=== PATIENT | male | born 1945 | race Caucasian/White ===

== ENCOUNTER 2019-10-29 14:53 | Observation (INO) ==
--- NOTE | 2019-10-29 15:46 | Emergency Department Note ---
Impression & Plan Amaurosis fugax of left eye ED Provider Note Provider: Niranjan White MD DATE OF SERVICE: 10/29/2019 CHIEF COMPLAINT: Vision loss HISTORY OF PRESENT ILLNESS: Patient is a 74-year-old gentleman with a past medical history of hyperlipidemia, GERD, hypertension presenting today stating that he has had 2 episodes of transient left eye vision loss. States first episode was approximately 10 days ago he was at home and started experiencing flashing his left eye and then total vision loss with a black sensation with a few flashes over several minutes. This then resolved. Talked to his doctor who in the outpatient setting has completed an MRI of the brain with report of some microvascular chronic changes but no other acute intracranial pathology. Had basic blood work showing some hyperlipidemia. Reportedly had a carotid ultrasound result of which is pending at this time. He denies other associated headache, palpitations, chest pain, difficulty breathing, fever, trauma, or other speech issues or numbness or weakness. Had a separate episode today and is been fine in the intervening time until just before 2 PM he had a 20-minute similar episode today where he had some flashing in his left eye and then total blackness that then resolved over about 20 minutes. States no pain no jaw pain. States his left eyelid maybe was a little bit droopy he felt on the way over or felt heavy but is now normalized. Patient states he takes a baby aspirin every day. 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 REVIEW OF SYSTEMS: A total of 10 review of systems was obtained and negative except as stated above in the HPI. PAST MEDICAL HISTORY: As noted above MEDICATIONS: Reviewed the nursing notes and agree, significant for lisinopril, aspirin, carvedilol SOCIAL HISTORY: Denies tobacco or alcohol usage. PHYSICAL EXAM: GENERAL: alert and oriented in no acute distress on stretcher Head: normocephalic and atraumatic EYES: No injection, discharge or icterus. PERRL, EOMI. 20/40 b/l corrected vision. Puff tonometry R avg 13, L avg 11 NECK: Trachea midline. Supple. ENT: Mucous membranes pink and moist. LUNGS: Airway patent. No retractions. Breath sounds clear HEART: Regular rate and rhythm. No chest wall tenderness ABDOMEN: Soft and non-tender, without guarding or rebound. SKIN: Acyanotic, warm, dry, without rashes EXTREMITIES: Without swelling, tenderness or deformity NEUROLOGICAL: No focal deficits. No aphasia. No facial droop or slurred speech. No facial paresthesias or forehead paralysis. No tenderness of the jawline. Normal strength and tone in the extremities. Sensation to gross touch normal. Ambulatory. EK bpm, normal sinus rhythm. No acute ST segment elevation or depression. Normal axis and normal QTC. No PVCs. Patient's hypertension was referred to his hospitalist HOSPITAL COURSE: 1505 Patient was first seen and H&P performed. [address] bright note from ophthalmology. Recommends TIA evaluation. 173 Patient reassessed and updated. Patient was resting comfortable without any recurrence. Discussed findings and [facility] recommendations[facility] with [facility]. Patient's laboratory studies and imaging reviewed. Differential includes Conjunctivitis, trauma, corneal abrasion, hyphema, glaucoma, iritis, corneal ulcer, dendrite, CRAO, CRVO, vitreous detachment, retinal detachment, CVA as well as other pathologies. IMPRESSION/MEDICAL DECISION MAKING: Patient presents with transient left eye visual loss with a second event today. Denies other associated events the other extremities. Seems atypical for stroke. Given the resolution of his symptoms doubt central retinal artery occlusion. Puff to monitor he was completed with a averaged pressure of 13 in the right eye and 11 in the left eye. 20/40 bilateral corrected eye vision without noted deficits reported per the patient. Patient denies any jaw claudication symptoms. Reviewed the [facility] medical records and recent MRI. Is scheduled for an upcoming carotid duplex for evaluation of those arteries. Does not appear inflammatory markers were sent so a CBC, BMP, ESR, and CRP were ordered. Does not seem consistent with a Erickson's palsy. CT the head and CT angiogram of the head and neck was completed. Again low suspicion this is a stroke or CVA. The lack of pain and normal pressures leans against glaucoma. I doubt this is corneal pathology. No evidence of injection of the eye and I doubt anterior chamber issue. States he is upcoming appointment with optometry tomorrow. Basic labs without significant findings. ESR just above normal at 19 and CRP just above normal at 0.57. This is not impressive for GCA. CT the head and CT angiogram of the head and neck completed without evidence of acute intracranial bleed. No significant vascular abnormality has been noted. Patient again is back at baseline at this time. Discussed with ophthalmology via phone. Findings are concerning for amaurosis fugax of the left eye. Ophthalmology recommends TIA work-up. Patient's had extensive work-up at this time however is not had cardiac evaluation/echocardiogram. We will give the patient full dosing of aspirin at this time. Discussed with the patient. The [facility] hospitalist evaluate. DIAGNOSIS: Transient left eye vision loss - Amaurosis fugax DISPOSITION: Hospitalist to eval Patient was agreeable with this plan. Past Med/Surg History Social History Preferred Language: Wallisian Feels Safe at Home: Yes Allergies Allergies Allergy/AdvReac Type Severity Reaction Status Date / Time [id number] Allergy Unknown Unknown Uncoded 10/29/19 15:51 Home Meds Home Medications Medication Instructions Recorded Confirmed aspirin 81 mg PO DAILY 10/29/19 10/29/19 carvedilol 3.125 mg PO BID PRN 10/29/19 10/29/19 coenzyme Q10 [CoQ-10] 0 mg PO DAILY 10/29/19 10/29/19 escitalopram oxalate 5 mg PO DAILY 10/29/19 10/29/19 ginkgo biloba 0 mg PO BID 10/29/19 10/29/19 lisinopril 2.5 mg PO QAM 10/29/19 10/29/19 omega 3-xgd-ugk-fish oil [Fish Oil] 1 cap PO DAILY 10/29/19 10/29/19 rosuvastatin 5 mg PO DAILY 10/29/19 10/29/19 turmeric 400 mg PO DAILY 10/29/19 10/29/19 Results & Data (ED) Vital Signs Vital Signs - 24 hr 10/29/19 14:58 10/29/19 15:42 10/29/19 16:00 Temperature 36.8 C Temperature Source Oral Pulse Rate 75 62 61 Pulse Rate from SpO2 Sensor 62 61 Respiratory Rate 18 19 13 Respiratory Effort / Characteristics Non-Labored Respiratory Depth Normal Blood Pressure 149/55 H 117/71 112/70 Blood Pressure Mean 86 78 79 Pulse Oximetry 97 98 97 Oxygen Delivery Method Room Air Sepsis Recent Fever Within 48 Hours No Sepsis Action Taken by Nursing No Action Required 10/29/19 16:39 10/29/19 17:00 10/29/19 17:31 Temperature Temperature Source Pulse Rate 65 63 65 Pulse Rate from SpO2 Sensor 65 61 63 Respiratory Rate 18 17 29 H Respiratory Effort / Characteristics Respiratory Depth Blood Pressure 131/73 127/79 149/84 H Blood Pressure Mean 95 90 92 Pulse Oximetry 97 97 99 Oxygen Delivery Method Sepsis Recent Fever Within 48 Hours Sepsis Action Taken by Nursing Laboratory Data Result diagrams: 10/29/19 15:45 10/29/19 15:45 Lab Results 10/29/19 10/29/19 10/29/19 Range/Units 15:45 15:45 15:45 WBC 5.04 (4.8-10.8) K/uL RBC 3.82 L (4.7-6.1) M/uL Hgb 12.1 L (14.0-18.0) g/dL Hct 36.7 L (42-52) % MCV 96.1 (80-100) fL MCH 31.7 (25-34) pg MCHC 33.0 (32-36) g/dL RDW Std Deviation 45.8 (36.4-46.3) fL RDW Coeff of George 13.1 (11.5-14.5) % Plt Count 306 (130-400) K/uL MPV 9.2 (7.4-10.4) fL Immature Gran % (Auto) 0.2 % Neut % (Auto) 57.2 % Lymph % (Auto) 23.4 % Denali % (Auto) 11.1 % Eos % (Auto) 7.5 % Baso % (Auto) 0.6 % Immature Gran # (Auto) 0.01 (0.00-0.02) K/uL Neut # (Auto) 2.88 (1.4-6.5) K/uL Lymph # (Auto) 1.18 L (1.2-3.4) K/uL Denali # (Auto) 0.56 (0.11-0.59) K/uL Eos # (Auto) 0.38 (0-0.5) K/uL Baso # (Auto) 0.03 (0-0.2) K/uL ESR 19 H (0-14) mm/hr Sodium 140 (136-145) mmol/L Potassium 4.3 (3.5-5.1) mmol/L Chloride 110 H (98-107) mmol/L Carbon Dioxide 28 (21-32) mmol/L Anion Gap 2.0 L (3-11) BUN 18 (7-18) mg/dl Creatinine 0.95 (0.6-1.4) mg/dl Est Cr Clr Drug Dosing 66.3 ml/min Est GFR ( Amer) 91.7 Est GFR (Non-Af Amer) 79.1 BUN/Creatinine Ratio 18.9 (10-20) Glucose 100 H (70-99) mg/dl Calcium 8.8 (8.5-10.1) mg/dl C-Reactive Protein 0.57 H (0-0.29) mg/dl Administered Medications Ioversol (Optiray 320 125ml) 119 ml IV ONCE PRN PRN Reason: Interaction Checking Stop: 11/02/19 16:30 Last Admin: 10/29/19 16:31 Dose: 119 ml Documented by: [id number] Discontinued Medications Aspirin (Aspirin Chew) 243 mg PO NOW STA Stop: 10/29/19 17:33 Last Admin: 10/29/19 17:37 Dose: 243 mg Documented by: [id number] Discharge Plan Visit Data Chief Complaint: Visual Disturbance Stated Complaint: LOST SIGHT IN LT EYE ED Provider: Niranjan White Discharge Problem: Amaurosis fugax of left eye Patient Disposition: Being Evaluated by Hospitalist Condition: Good Forms Stand Alone Forms: My [facility] [place] [employer] Prescriptions Prescriptions: No Action aspirin 81 mg Tablet,Delayed Release (Dr/Ec) 81 mg PO DAILY RF: 0 carvedilol 3.125 mg tablet 3.125 mg PO BID PRN (Reason: Hypertension) RF: 0 lisinopril 2.5 mg tablet 2.5 mg PO QAM RF: 0 ginkgo biloba 500 mg Capsule 0 mg PO BID RF: 0 escitalopram oxalate 10 mg tablet 5 mg PO DAILY RF: 0 coenzyme Q10 [CoQ-10] 100 mg Capsule 0 mg PO DAILY RF: 0 rosuvastatin 5 mg tablet 5 mg PO DAILY RF: 0 omega 3-env-mjj-fish oil [Fish Oil] 1,000 mg (120 mg-180 mg) Capsule 1 cap PO DAILY RF: 0 turmeric 400 mg Capsule 400 mg PO DAILY RF: 0 Referrals Referrals: James Harrell DO [Primary Care Provider] -
[2019-10-29 15:54] LABS: Basophils # (auto) 0.03 K/uL (0-0.2); Basophils % (auto) 0.6 %; Eosinophils # (auto) 0.38 K/uL (0-0.5); Eosinophils % (auto) 7.5 %; Hematocrit (blood only) 36.7 % (42-52); Hemoglobin 12.1 g/dL (14.0-18.0); Immature Granulocytes # (auto) 0.01 K/uL (0.00-0.02); Immature Granulocytes % (auto) 0.2 %; Lymphocytes # (auto) 1.18 K/uL (1.2-3.4); Lymphocytes % (auto) 23.4 %; Mean Corpuscular Hemoglobin 31.7 pg (25-34); Mean Corpuscular Volume 96.1 fL (80-100); Mean Platelet Volume 9.2 fL (7.4-10.4); Monocytes # (auto) 0.56 K/uL (0.11-0.59); Monocytes % (auto) 11.1 %; Neutrophils # (auto) 2.88 K/uL (1.4-6.5); Neutrophils % (auto) 57.2 %; Platelet Count 306 K/uL (130-400); RDW Coefficient of Variation 13.1 % (11.5-14.5); RDW Standard Deviation 45.8 fL (36.4-46.3); Red Blood Count 3.82 M/uL (4.7-6.1); White Blood Count 5.04 K/uL (4.8-10.8)
[2019-10-29 16:10] LABS: BUN Creatinine Ratio 18.9 (10-20); C Reactive Protein 0.57 mg/dl (0-0.29); Calcium 8.8 mg/dl (8.5-10.1); Creatinine Clr Calc Pharmacy 66.3 ml/min; Est GFR (African American) 91.7; Est GFR (Non-African American) 79.1; Potassium 4.3 mmol/L (3.5-5.1)
[2019-10-29] MEDS ORDERED: OPTIRAY 320 125ml IV PRN (16:31)
--- NOTE | 2019-10-29 16:49 | CT Scan Report ---
CT angio head wo/w CT DOSE: CLINICAL HISTORY: Transient left eye visual loss TECHNIQUE: Unenhanced images were obtained. The brain. CT angiography was then performed a dynamic he lical fashion during intravenous administration of 119 cc of Optiray 320. MIP images were acquired. A dose lowering technique was utilized adhering to the principles of ALARA. COMPARISON STUDY: None. FINDINGS: Noncontrast images reveal no CT evidence of acute cortical infarction. There is no midline shift. The re is no evidence of acute hemorrhage. There is minimal ventricular prominence. No calvarial fracture s are visualized. There is no evidence of acute sinusitis. There are polypoid mucosal changes within the maxillary sinuses. CT angiographic images reveal no evidence of major intracranial branch occlusion. There are no lesion suspicious for aneurysm. There is no evidence of major intracranial stenosis. The dural venous sinus es appear patent. There are no pathologically enhancing lesions. IMPRESSION: 1. No acute intracranial findings 2. Unremarkable CT angiography of the brain. ACT 112: Negative or not required by law. Electronically signed by: Brock Foy M.D. 10/29/2019 4:48 PM
--- NOTE | 2019-10-29 16:51 | CT Scan Report ---
CT angio neck with con CLINICAL HISTORY: Transient left eye visual loss COMPARISON STUDY: No previous studies for comparison. TECHNIQUE: CT angiography was performed from the aortic arch to the skull base. MIP imaging was perfo rmed. The patient was scanned in a dynamic helical fashion during intravenous administration of 119 c c of Optiray 320. A dose lowering technique was utilized adhering to the principles of ALARA. CT DOSE: 1126.75 mGy.cm Technique: CT angiogram of the carotid and vertebral arteries was obtained using intravenous contrast and 3-D reconstruction. NASCET criteria was utilized. Findings: The right carotid revealed no evidence of aneurysm and no evidence of dissection. There is no evidenc e of hemodynamic significant stenosis. The left carotid revealed no evidence of hemodynamic significant stenosis. There is no evidence of an eurysm. There is no evidence of dissection. There is no evidence of hemodynamically significant vertebral stenosis. There is no evidence of verte bral dissection. IMPRESSION: No evidence of hemodynamically significant carotid or vertebral artery stenosis. No evidence of disse ction. ACT 112: Negative or not required by law. Electronically signed by: Brock Foy M.D. 10/29/2019 4:50 PM
[2019-10-29] MEDS ORDERED: ASPIRIN 81 MG CHEW PO STA (17:32)
--- NOTE | 2019-10-29 17:41 | Electrocardiogram Report ---
Test Reason : Blood Pressure : / mmHG Vent. Rate : 061 BPM Atrial Rate : 061 BPM P-R Int : 170 ms QRS Dur : 092 ms QT Int : 388 ms P-R-T Axes : 053 041 053 degrees QTc Int : 390 ms Normal sinus rhythm Nonspecific ST abnormality Abnormal ECG When compared with ECG of 13-OCT-2007 16:11, Premature ventricular complexes are no longer Present Confirmed by Brady Gomez ([id number]) on 10/29/2019 5:41:51 PM Referred By: REFERRED SELF Confirmed By:Brady Gomez
--- NOTE | 2019-10-29 18:16 | History & Physical Report ---
Date of Service October 29, 2019 Assessment & Plan (1) Transient monocular blindness: Differential includes but not limited to TIA, NAION, CRAO, complicated migraine. Workup so far includes a normal ESR. Without jaw claudication or headache, GCA less likely. Normal IOP making acute glaucoma less likely. No known vascular disease with a normal CTA head and neck making a macrovascular cause less likely. He does describe a sensation like a visual aura and denies loss of taste or smell associated with vision loss episodes. He does have a h/o "tension headaches" that have been ongoing for years, but no clear migraine history. He recently had a normal outpatient MRI brain. Will admit and monitor on telemetry overnight for occult arrhythmia, and obtain an echo and a neurology consultation. Cont atherosclerosis risk factor modification with home statin and ASA . Hold lisinopril to allow permissive hypertension. (2) HLD (hyperlipidemia): Crestor per home regimen. (3) Adjustment disorder with depressed mood: Lexapro per home regimen. (4) DVT prophylaxis: Lovenox Full Dispo-likely to home in am after workup completed. If no evidence of occult arrhythmia and normal echocardiogram, would discuss with Neurology and then consider close outpatient ophthalmology follow-up. Meryl Hodges DO [facility] Hospitalist Admission and Anticipated Discharge Date Anticipated date of discharge: 10/30/19 History of Present Illness Chief Complaint: transient monocular vision loss on the left Primary Care Provider: James Harrell DO 74-year-old man presents with 2 episodes of transient monocular vision loss in the left over the past 10 days. He reports approximately 10 days ago having transient vision loss which improved spontaneously. He was seen by his primary care provider who ordered an MRI of the brain which was normal. He then had a second episode today for approximately 20 minutes. He reports his vision gradually fades and there is a flashing light and dark's with preservation of color vision. He reports something of an oral but there is no sensation or pain associated with this. He denies any headache or jaw pain. ESR was 19 in the ER. Intraocular pressure was normal per ER physician. He has no known cardiac or vascular disease. 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 He denies any other strokelike symptoms including no loss of function of arms or legs, no loss of function of speech, normal swallowing ability, no facial droop or any other strokelike symptoms. He was recently placed on Crestor 5 mg. He takes fdfn-ejv-uaigesy supplements including coenzyme Q 10, ginkgo biloba, omega-3 fatty acids and tumor rec. He reports a distant history of an acute cardiomyopathy that was nonischemic, which resolved with medical therapy. He continues to be on the Coreg and lisinopril that he was put on in 2011 for this issue but is due to follow-up with his dielectric machine operator to discuss coming off these medications completely. He is already somewhat stopped his Coreg as he began feeling fatigue related to the medication. Allergies Allergy/AdvReac Type Severity Reaction Status Date / Time [id number] Allergy Unknown Unknown Uncoded 10/29/19 15:51 Home Medications Home Medications Medication Instructions Recorded Confirmed Type aspirin 81 mg PO DAILY 10/29/19 10/29/19 History carvedilol 3.125 mg PO BID 10/29/19 10/29/19 History coenzyme Q10 [CoQ-10] 0 mg PO DAILY 10/29/19 10/29/19 History escitalopram oxalate 5 mg PO DAILY 10/29/19 10/29/19 History ginkgo biloba 0 mg PO BID 10/29/19 10/29/19 History lisinopril 2.5 mg PO QAM 10/29/19 10/29/19 History omega 6-gsv-pqf-fish oil [Fish Oil] 1 cap PO DAILY 10/29/19 10/29/19 History rosuvastatin 5 mg PO DAILY 10/29/19 10/29/19 History turmeric 400 mg PO DAILY 10/29/19 10/29/19 History Past Med/Surg History Medical History Adjustment disorder with depressed mood HLD (hyperlipidemia) Nonischemic cardiomyopathy Schatzki's ring Surgical History Hx of tonsillectomy S/P appy Family History Father , age 78 Coronary heart disease Social History Preferred Language: Yakut marital status: Single current occupational status: employed 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 Feels Safe at Home: Yes Smoking Status: Former smoker Hx Alcohol Use: Yes Physical Activity Frequency: 5-6 Times per Week Review of Systems Review of Systems: All systems reviewed & are unremarkable except as noted in HPI & below Physical Exam Physical Exam: CONSTITUTIONAL: WNWD, vitals as above, generally well-appearing EYES: PERRL, normal conjunctivae, no scleral icterus, no fundoscopic abnormality ENT: external ear and nose normal, oropharynx clear, no TM abnormality, no maxillary or ethmoid sinus tenderness NECK: trachea midline, no lymphadenopathy RESPIRATORY: clear to auscultation bilaterally, no crackles, rales or wheezes, normal respiratory effort CARDIOVASCULAR: regular rate and rhythm, S1 and 2 heard without murmurs, gallops or rubs, no JVD, no peripheral edema GASTROINTESTINAL: soft, nontender, nondistended MUSCULOSKELETAL: strength 5/5 throughout, head is normocephalic and atraumatic, neck supple, normal palpation of chest wall without tenderness SKIN: warm and dry NEUROLOGIC: patellar DTRs 2+ bilat. No facial palsy, no dysarthria. CN 2-12 grossly intact, no sensory deficit, normal cognition, normal speech, no tremor PSYCHIATRIC: alert cooperative and oriented to person, place and time. Results & Data Results & Data ([facility]) Vital Signs (Past 12 Hours) Vital Signs Temp Pulse Resp BP Pulse Ox 10/29/19 17:31 65 29 H 149/84 H 99 10/29/19 17:00 63 17 127/79 97 10/29/19 16:39 65 18 131/73 97 10/29/19 16:00 61 13 112/70 97 10/29/19 15:42 62 19 117/71 98 10/29/19 14:58 36.8 C 75 18 149/55 H 97 Laboratory Results Short CBC 10/29/19 Range/Units 15:45 WBC 5.04 (4.8-10.8) K/uL Hgb 12.1 L (14.0-18.0) g/dL Hct 36.7 L (42-52) % Plt Count 306 (130-400) K/uL BMP 10/29/19 15:45 Sodium 140 Potassium 4.3 Chloride 110 H Carbon Dioxide 28 BUN 18 Creatinine 0.95 Glucose 100 H Calcium 8.[address] angio neck with con Findings: The right carotid revealed no evidence of aneurysm and no evidence of dissection. There is no evidence of hemodynamic significant stenosis. The left carotid revealed no evidence of hemodynamic significant stenosis. There is no evidence of aneurysm. There is no evidence of dissection. There is no evidence of hemodynamically significant vertebral stenosis. There is no evidence of vertebral dissection. IMPRESSION: No evidence of hemodynamically significant carotid or vertebral artery stenosis. No evidence of dissection. CT angio head wo/w FINDINGS: Noncontrast images reveal no CT evidence of acute cortical infarction. There is no midline shift. There is no evidence of acute hemorrhage. There is minimal ventricular prominence. No calvarial fractures are visualized. There is no evide nce of acute sinusitis. There are polypoid mucosal changes within the maxillary sinuses. CT angiographic images reveal no evidence of major intracranial branch occlusion. There are no lesion suspicious for aneurysm. There is no evidence of major intracranial stenosis. The dural venous sinuses appear patent. There are no pathologically enhancing lesions. IMPRESSION: 1. No acute intracranial findings 2. Unremarkable CT angiography of the brain. Medications Administered ASA 2423mg PO x 1 in ER. ECG Rhythm: normal sinus Code Status & VTE Plan Code Status Full -discussed with patient on admission who is in agreement with this VTE Prophylaxis Plan VTE Prophylaxis will be ordered: Yes
[2019-10-29] MEDS ORDERED: ACETAMINOPHEN 325 MG TAB PO PRN (20:01)
[2019-10-29] MEDS ORDERED: PHARMACIST DISCHARGE MED REC CONSULT PRN (20:01)
[2019-10-29] MEDS ORDERED: SODIUM CHLORIDE 0.9% 1000ML 1,000 ML IV SCH (23:00)
[2019-10-30 06:31] LABS: Basophils # (auto) 0.04 K/uL (0-0.2); Basophils % (auto) 0.7 %; Eosinophils # (auto) 0.44 K/uL (0-0.5); Eosinophils % (auto) 7.2 %; Hematocrit (blood only) 37.5 % (42-52); Hemoglobin 12.3 g/dL (14.0-18.0); Immature Granulocytes # (auto) 0.01 K/uL (0.00-0.02); Immature Granulocytes % (auto) 0.2 %; Lymphocytes # (auto) 1.49 K/uL (1.2-3.4); Lymphocytes % (auto) 24.5 %; Mean Corpuscular Hemoglobin 31.5 pg (25-34); Mean Corpuscular Hgb Conc 32.8 g/dL (32-36); Mean Corpuscular Volume 95.9 fL (80-100); Monocytes # (auto) 0.78 K/uL (0.11-0.59); Monocytes % (auto) 12.8 %; Neutrophils # (auto) 3.33 K/uL (1.4-6.5); Neutrophils % (auto) 54.6 %; Platelet Count 303 K/uL (130-400); RDW Coefficient of Variation 13.1 % (11.5-14.5); RDW Standard Deviation 45.7 fL (36.4-46.3); Red Blood Count 3.91 M/uL (4.7-6.1); White Blood Count 6.09 K/uL (4.8-10.8)
[2019-10-30 06:48] LABS: BUN Creatinine Ratio 19.3 (10-20); Calcium 8.8 mg/dl (8.5-10.1); Creatinine Clr Calc Pharmacy 67.6 ml/min; Est GFR (African American) 96.6; Est GFR (Non-African American) 83.3; Potassium 4.2 mmol/L (3.5-5.1)
[2019-10-30 07:04] LABS: Estimated Average Glucose 117 mg/dl; Hemoglobin A1C 5.7 % (4.5-5.6)
[2019-10-30] MEDS ORDERED: ESCITALOPRAM OXALATE 10 MG TAB PO SCH (09:00)
[2019-10-30] MEDS ORDERED: ASPIRIN 81 MG ECTAB PO SCH (09:00)
[2019-10-30] MEDS ORDERED: ENOXAPARIN INJ 40 MG/0.4 ML SYR SQ SCH (09:00)
[2019-10-30] MEDS ORDERED: ROSUVASTATIN CALCIUM 5 MG TAB PO SCH (09:00)
--- NOTE | 2019-10-30 12:40 | Neurology Consultation ---
Date of Consultation October 30, 2019 Assessment & Plan (1) Amaurosis fugax of left eye: A pleasant 74 year old male with chronic daily headaches which sound most consistent with chronic TTH and 2 episodes of intermittent, brief left eye visual loss. Differential diagnosis certainly includes amaurosis fugax Vs ocular migraine or other intrinsic eye abnormality. CTA neck showed no high grade stenosis. MRI brain as outpatient was negative for acute stroke. On examine VF full to confrontation and EOMI. Pupils symmetric and reactive. Recommend he take ASA daily. Recommend ophthalmology consult as outpatient. Discussed headache prophylactic medication option. Patient declined at this time. If episodes continue I ask patient to contact and provided him with by contact information. Patient agreed to plan of care. (2) TTH (tension-type headache): History of Present Illness Reason for Consultation: Transient monocular visual loss Attending Physician: Jaja Ang MD History of Present Illness A 74 year old male on ASA and high intensity statin admitted for transient monocular visual loss. Noted to have 2 episodes of transient monocular vision loss in the left eye over the past 10 days. He reports approximately 10 days ago having transient vision loss which improved spontaneously. He was seen by his primary care provider who ordered an MRI of the brain which was normal. He then had a second episode which lasted approximately 20 minutes. He reports his vision gradually fades and there is a flashing light and dark's with preservation of color vision. He reports something of an oral but there is no sensation or pain associated with this. He denies any headache or jaw pain. ESR was 19 in the ER. Intraocular pressure was normal per ER physician. He denies history of similar symptoms. Reports history of TTH. Denies migraines with N/V or photosensitivity. Has daily headaches which he describes as tension and relieved with massage. Headache may only last 5 min. He was taking ASA intermittently at home. Allergies Allergy/AdvReac Type Severity Reaction Status Date / Time [id number] Allergy Unknown Unknown Uncoded 10/29/19 15:51 Home Medications Home Medications Medication Instructions Recorded Confirmed Type aspirin 81 mg PO DAILY 10/29/19 10/29/19 History carvedilol 3.125 mg PO BID 10/29/19 10/29/19 History coenzyme Q10 [CoQ-10] 0 mg PO DAILY 10/29/19 10/29/19 History escitalopram oxalate 5 mg PO DAILY 10/29/19 10/29/19 History ginkgo biloba 0 mg PO BID 10/29/19 10/29/19 History lisinopril 2.5 mg PO QAM 10/29/19 10/29/19 History omega 2-ula-zaz-fish oil [Fish Oil] 1 cap PO DAILY 10/29/19 10/29/19 History rosuvastatin 5 mg PO DAILY 10/29/19 10/29/19 History turmeric 400 mg PO DAILY 10/29/19 10/29/19 History Patient History Medical History Adjustment disorder with depressed mood HLD (hyperlipidemia) Nonischemic cardiomyopathy Schatzki's ring Surgical History Hx of tonsillectomy S/P appy Family History Father , age 78 Coronary heart disease Social History Preferred Language: Occitan Communication Ability: Effective Medical Billing Clerk Required: No Beliefs That Will Affect Care: None marital status: Single Current Living Situation: Family Current Living Situation Comment: Sister and [id number] live in his home current occupational status: employed 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 Other Information That Helps Us Care for You: No Feels Safe at Home: Yes Safety Concerns: Feels Safe At This Time Smoking Status: Former smoker Do You Dip or Chew Tobacco: No ; Tobacco Cessation Education Requested by Patient: No Hx Alcohol Use: Yes Alcohol type: wine Hx Substance Use: No Physical Activity Frequency: 5-6 Times per Week Physical Exam Physical Exam: Constitutional: appearance normally developed Face: normocephalic and atraumatic Eyes: normal lids, normal conjunctiva Neck: supple Respiratory: normal effort Cardiovascular: normal pulses Abdomen: non distended Skin: no rashes, lesions, or ulcers noted Psychiatric: normal mood and normal affect NEUROLOGIC EXAMINATION: Appearance: no acute distress Orientation: awake, alert and oriented x 3 Mental Status: alert Attention: normal Knowledge: appropriate Language: no aphasia Speech: no dysarthria Cranial Nerves: CN 2 - no visual defect on confrontation and pupils round, equal, reactive to light CN 3, 4, 6 - extra-ocular movements intact CN 5 - facial sensation intact CN 7 - no facial asymmetry CN 8 - intact hearing CN 9, 10 - palate symmetric CN 11 - good shoulder shrug CN 12 - tongue midline Gait: deferred Coordination: no ataxia with finger to nose testing Sensory: intact and symmetric to light touch Muscle Tone: normal Muscle exam: No focal weakness Results & Data Vital Signs (Past 12 Hours) Vital Signs Temp Pulse Pulse Resp BP Pulse Ox 10/30/19 11:56 36.4 C L 67 18 137/84 98 10/30/19 08:00 65 10/30/19 07:00 36.8 C 55 L 18 130/74 96 10/30/19 06:04 65 10/30/19 04:25 37.0 C 62 17 99/53 L 98 Laboratory Results CRP 0.57 HA1c 5.7 Diagnostic Findings CTA head and neck: No evidence of hemodynamically significant carotid or vertebral artery stenosis. No evidence of dissection
[2019-10-30] MEDS ORDERED: STROKE PATIENT DISCHARGE STA (16:02)
--- NOTE | 2019-10-30 16:03 | Discharge Summary ---
Date of Service October 30, 2019 Admission HPI Per Admitting Provider 74-year-old man presents with 2 episodes of transient monocular vision loss in the left over the past 10 days. He reports approximately 10 days ago having transient vision loss which improved spontaneously. He was seen by his primary care provider who ordered an MRI of the brain which was normal. He then had a second episode today for approximately 20 minutes. He reports his vision gradually fades and there is a flashing light and dark's with preservation of color vision. He reports something of an oral but there is no sensation or pain associated with this. He denies any headache or jaw pain. ESR was 19 in the ER. Intraocular pressure was normal per ER physician. He has no known cardiac or vascular disease. 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 He denies any other strokelike symptoms including no loss of function of arms or legs, no loss of function of speech, normal swallowing ability, no facial droop or any other strokelike symptoms. He was recently placed on Crestor 5 mg. He takes sojk-vra-tialxxk supplements including coenzyme Q 10, ginkgo biloba, omega-3 fatty acids and tumor rec. He reports a distant history of an acute cardiomyopathy that was nonischemic, which resolved with medical therapy. He continues to be on the Coreg and lisinopril that he was put on in 2011 for this issue but is due to follow-up with his lithograph operator to discuss coming off these medications completely. He is already somewhat stopped his Coreg as he began feeling fatigue related to the medication. Principal Diagnosis TEMPORARY LOSS OF VISION OF ONE EYE Discharge Exam Constitutional WD/WN, vitals as above Eyes PERRL, conjunctivae normal, anicteric sclerae ENMT external ear and nose normal, oropharynx normal Neck trachea midline, no thyromegaly Respiratory normal respiratory effort, lungs clear to auscultation Cardiovascular RRR, no murmur, no edema Gastrointestinal (Abdomen) normal bowel sounds, soft, nontender, no hepatosplenomegaly Musculoskeletal no cyanosis or clubbing, extremities motor strength 5/5 Skin no rashes, warm and dry Neurologic PERRL, EOMI, accommodation nl, no face palsy, no dysarthria Psychiatric A+Ox3, euthymic affect Discharge Data Allergies Allergy/AdvReac Type Severity Reaction Status Date / Time [id number] Allergy Unknown Unknown Uncoded 04/16/20 15:51 Consultations 10/29/19 18:01 ED Decision to Admit Stat 10/29/19 20:01 Consult Case Management - Discharge Planning Routine Consult Neurology Routine Ordered Studies 10/29/19 15:57 CT angio head wo/w Stat CT angio neck with con Stat Hospital Course (1) Transient monocular blindness: no evidence of acute CVA or TIA visual symptom has completely resolved no blurred vision or diplopia appreciate input form Neurology stable to be discharged home pt is asked to take Aspirin 81 mg daily for primary prophylaxis against future CVA (2) HLD (hyperlipidemia): cont Crestor (3) Adjustment disorder with depressed mood: Lexapro per home regimen. (4) DVT prophylaxis: Lovenox Full DISPOSITION ; discharged home today Total Time Total Time Spent Total Time Spent (In Minutes): 35 mins Total Time Includes: Examination of the Patient, Discharge Planning and Medication Reconciliation Discharge Plan Discharge Items Patient Disposition: Home - Self-Care Reason For Visit: TRANSIENT MONOCULAR VISION LOSS Discharge Diagnosis: TEMPORARY LOSS OF VISION OF ONE EYE Condition on Discharge: Good Activity: Resume your previous activity Non-emergency contact: Primary Care Provider Call non-emergency contact if: you have any medication questions Follow-up/Referrals: James Harrell DO [Primary Care Provider] - Diet: Heart Healthy Addtl Attending Provider Instructions: hospital follow up with family physician in a week please call to schedule appointment Please take aspirin 81 mg -one tablet daily to prevent future risk of stroke Pending Studies at Discharge: No Stand-Alone Forms: My [employer], Smoking Cessation Medications and DC Order Prescriptions: Continued carvedilol 3.125 mg tablet 3.125 mg PO BID RF: 0 lisinopril 2.5 mg tablet 2.5 mg PO QAM RF: 0 ginkgo biloba 500 mg Capsule 0 mg PO BID RF: 0 escitalopram oxalate 10 mg tablet 5 mg PO DAILY RF: 0 coenzyme Q10 [CoQ-10] 100 mg Capsule 0 mg PO DAILY RF: 0 rosuvastatin 5 mg tablet 5 mg PO DAILY RF: 0 omega 6-mqc-wop-fish oil [Fish Oil] 1,000 mg (120 mg-180 mg) Capsule 1 cap PO DAILY RF: 0 turmeric 400 mg Capsule 400 mg PO DAILY RF: 0 aspirin 81 mg Tablet,Delayed Release (Dr/Ec) 81 mg PO DAILY Qty: 30 RF: 3 Discharge Orders: Discharge Order (Routine); Ordered 10/30/19 Ordered By: Jaja Nolasco/Other Patient Handouts: DVT Admission Data Admit Date/Time: 10/29/19 18:19 Attending Provider: Jaja Ang Admit Provider: Meryl Hodges Primary Care Provider: James Harrell Other Providers: Meryl Hodges ; Peter Sheridan Other Interventions: Discharge Summary Assessment (RN) Last Done: 10/30/19 16:09 DC Date/Time DO NOT enter until pt leaves facility: 10/30/19 16:34
== END 2019-10-30 16:34 | disposition home or self-care (01) ==
LOC: 2N 14:53 → ED 14:53 → SUATTDRO 18:19 → 2N 19:09

== ENCOUNTER 2023-06-20 13:29 | Inpatient (IN) ==
--- NOTE | 2023-06-20 13:38 | ED Triage Note ---
Date of Service June 20, 2023 Provider in Triage Author: Shaun Conklin History of Present Illness This patient was briefly evaluated while in triage. An abbreviated physical exam was performed. This patient is a 78-year-old Male who presents to the ED for evaluation of back pain with recent imaging showing bilateral pulmonary emboli. He had CT imaging performed today. Saturday morning r flank/back pain started. Had extensive workout in gym on saturday and notes was hard to do. [facility]. Had blood tests and CT scans today. No dyspnea, no chest pain. No hx of clots. Physical Exam GENERAL: 78 year old male. In no acute distress. SKIN: No lesions or rashes. HEART: Regular rate and rhythm. LUNGS: Clear to auscultation. ABDOMEN: Bowel sounds normoactive. No guarding or rigidity. No tenderness of palpation. NEURO: Alert and oriented. No deficits. MUSCULOSKELETAL: No deformities to inspection of the extremities. PSYCH: Patient is pleasant and answers all questions appropriately. Initial orders for labs and / or imaging were placed and patient was placed in the waiting area until a bed is available. Please see further documentation for the full ED course.
[2023-06-20 14:09] LABS: Appearance Urine Clear (Clear); Bilirubin Urine Negative (Negative); Blood Urine Negative (Negative); Color Urine Yellow; Glucose Urine UA Negative (Negative); Ketones Urine Negative (Negative); Leukocyte Esterase Urine Negative (Negative); Nitrite Urine Negative (Negative); Protein Urine Negative (Negative); Urobilinogen Urine Negative (Negative)
[2023-06-20 14:40] LABS: Basophils # (auto) 0.04 K/uL (0.00-0.20); Basophils % (auto) 0.4 %; Eosinophils # (auto) 0.42 K/uL (0.00-0.50); Eosinophils % (auto) 4.4 %; Hematocrit (blood only) 39.7 % (42.0-52.0); Hemoglobin 12.9 g/dl (14.0-18.0); Immature Granulocytes # (auto) 0.04 K/uL (0.01-0.20); Immature Granulocytes % (auto) 0.4 %; Lymphocytes # (auto) 1.28 K/uL (1.20-3.40); Lymphocytes % (auto) 13.3 %; Mean Corpuscular Hemoglobin 31.3 pg (25.0-34.0); Mean Corpuscular Hgb Conc 32.5 g/dL (32.0-36.0); Mean Corpuscular Volume 96.4 fL (80.0-100.0); Mean Platelet Volume 9.4 fL (9.4-12.4); Monocytes # (auto) 0.99 K/uL (0.11-0.59); Monocytes % (auto) 10.3 %; Neutrophils # (auto) 6.88 K/uL (1.40-6.50); Neutrophils % (auto) 71.2 %; Platelet Count 319 K/uL (130-400); RDW Coefficient of Variation 12.8 % (11.5-14.5); RDW Standard Deviation 45.7 fL (36.4-46.3); Red Blood Count 4.12 M/uL (4.70-6.10); White Blood Count 9.65 K/ul (4.8-10.8)
[2023-06-20 14:55] LABS: Albumin Globulin Ratio 1.2 (0.9-2); Albumin Level 4.1 gm/dl (3.4-5.0); Bilirubin,Total 0.5 mg/dl (0.2-1.0); Calcium 9.3 mg/dl (8.6-10.3); Est GFR (African American) 93.9 ml/min; Globulin 3.3 gm/dl (2.5-4.0); Potassium 4.1 mmol/L (3.5-5.1); Total Protein 7.4 gm/dl (6.0-8.3)
[2023-06-20 15:01] LABS: Troponin I High Sensitivity 4.4 pg/ml (0-20)
[2023-06-20 15:05] LABS: Partial Thromboplastin Ratio 1.2; Partial Thromboplastin Time 34 Seconds (21-31); Prothrombin Time 10.8 Seconds (9.0-12.0)
[2023-06-20] MEDS ORDERED: RIVAROXABAN 15 MG TAB PO STA (15:44)
--- NOTE | 2023-06-20 16:29 | Ultrasound Report ---
US venous doppler LE BI CLINICAL HISTORY: DVT, known PE TECHNIQUE: Bilateral lower extremity real-time compression venous ultrasound with Color Doppler imagi ng. Utilizing real-time ultrasonic imaging multiple real time high-resolution ultrasonic images with compression and noncompression maneuvers of the deep venous system in addition to color doppler imagi ng were performed from the common femoral vein through the proximal calf veins. COMPARISON: None available at the time of this dictation. FINDINGS/IMPRESSION: Currently there is normal compressibility of the deep venous system from the common femoral vein thro ugh the proximal calf veins. No superficial venous thrombosis is identified. ACT 112: Negative or not required by law. Electronically signed by: Marciano Madrigal M.D. 06/20/2023 4:28 PM
[2023-06-20] MEDS ORDERED: ONDANSETRON INJ 2 MG/ML 2 ML VIAL IV PRN (16:57)
[2023-06-20] MEDS ORDERED: MAGNESIUM HYDROXIDE SUSP 30 ML UDC PO PRN (16:57)
[2023-06-20] MEDS ORDERED: POLYETHYLENE (MIRALAX) 17 GM PACK PO PRN (16:57)
[2023-06-20] MEDS ORDERED: ALUMINUM/MAGNESIUM SUSP 30 ML UDC PO PRN (16:57)
[2023-06-20] MEDS ORDERED: ACETAMINOPHEN 325 MG TAB PO PRN (16:57)
--- NOTE | 2023-06-20 17:09 | History & Physical Report ---
Date of Service June 20, 2023 Assessment & Plan (1) Bilateral pulmonary embolism: (2) HLD (hyperlipidemia): (3) Adjustment disorder with depressed mood: (4) HTN (hypertension): (5) Nephrolithiasis: Plan Mr. Lucas is a 78 year old male that presented to the ED today after being evaluated at [facility] yesterday for evaluation of his back pain and right flank pain that started after a gym workout on Saturday. Chest CT was performed today with results revealing bilateral PE. No previous DVT/PE in his history. sPESI risk factors are low. Will obtain ECHO to determine RV Dysfunction, obtain BNP. Pt denies VERDUZCO, dizziness, SOB, visual or auditory changes, abdominal pain or tenderness, recent falls or trauma, hematachezia, hematuria or appetite changes. Will obtain ECHO to determine RV dysfunction. PO Xarelto started in ED; will initiate heparin gtt. Check BNP and renal US given abd/pelvis CT findings . Pt will require further evaluation for cause of PE; need to consider malignancy. Consider Urology consultation based on renal US. Bilateral Pulmonary Embolism: Acute LE Doppler US negative for DVT. Chest CT Bilateral pulmonary emboli without evidence of right heart strain or pulmonary infarct. Abdomen and pelvis CT revealed multiple bilateral pulmonary emboli, trace right pleural effusion, right lower lobe airspace opacity may reflect a pulmonary infarct or atelectasis. Markedly distended bladder. No leukocytosis, or TODD. ECG NSR with QTc 426. Troponin negative urine negative. Will check BNP sPESI risk stratification low: Will obtain ECHO to determine RV dysfunction PO Xarelto started in ED; start low dose no bolus heparin gtt; likely bridge to Xarelto 15 mg PO BID x21 days followed by 20 mg daily x 3 months Pt will require further evaluation for cause of PE; need to consider malignancy Nephrolithiasis: acute Abdomen/Pelvic CT: Moderate to severe left hydroureteronephrosis likely related to bladder distention. The findings suggest chronic bladder outlet obstruction related to an enlarged prostate. Bilateral nephrolithiasis. No ureteral calculi. No bowel obstruction. Obtain renal US given findings outlined above Creatinine 0.9; consider Urology consultation based on US results consider checking PSA level HTN: Chronic Takes Coreg and Lisinopril; continue HLD: chronic stable Takes Rosuvastatin; continue Depression: Chronic stable Takes Lexapro; continue Disposition: PCP: Dr. Navarro Code Status: Full Code VTE Prophylaxis: Heparin gtt I spent a total of 88 minutes coordinating, documenting, and providing care for this patient excluding time spent in the performance of separately billed services. All of the aforementioned completed while collaborating with the assigned attending physician for a full treatment plan. Please see their addendum for further details. History of Present Illness Chief Complaint: bilateral PE Primary Care Provider: Pelon Navarro MD Mr. Lucas is a 78 year old male that presented to the ED today after being evaluated at [facility] yesterday for evaluation of his back pain and right flank pain that started after a gym workout on Saturday. He reports that Saturday morning into the evening he started to have discomfort with deep breathing. Yesterday morning he decided that he would present to urgent care. They did a D-dimer test that was elevated leading to a chest CT. Chest CT was performed today with results revealing bilateral PE. No previous DVT/PE in his history. Reports that 5 years ago he had intermittent left ocular visual loss for which he was evaluated through the emergency room. This occurred 6-7 times over 1 week. And he was diagnosed with TIA but no official CVA diagnosis. Also has a PFO that never closed putting him at higher risk of developing clots but he did have the PFO repaired and closed in 2019 in [place]. He was following with cardiology in [place] for some time but has transition care over to Dr. Titus with cardiology. In the ED, LE Doppler US was performed and negative for DVT. No leukocytosis, or TODD. ECG NSR with QTc 426. Troponin negative, urine negative. Chest CT performed in ED with results indicating Bilateral pulmonary emboli are seen without evidence of right heart strain or pulmonary infarct. Abdomen and pelvis CT revealed multiple bilateral pulmonary emboli, better depicted on the chest CT which will be reported separately, trace right pleural effusion, right lower lobe airspace opacity may reflect a pulmonary infarct or atelectasis. Markedly distended bladder. Moderate to severe left hydroureteronephrosis likely related to bladder distention. The findings suggest chronic bladder outlet obstruction related to an enlarged prostate. Bilateral nephrolithiasis. No ureteral calculi. No bowel obstruction. Pt denies VERDUZCO, dizziness, SOB, visual or auditory changes, abdominal pain or tenderness, recent falls or trauma, hematochezia, hematuria or appetite changes. Patient reports he does have intermittent cough but does not bring up the sputum to determine if any discoloration. Patient is AOx4 and in no acute distress. Patient is able to follow all commands, is euvolemic does not appear hypoxic and is not using any accessory muscle use for breathing. Hemodynamically stable without hypoxia and is on room air. Normotensive and without tachycardia. No recent surgeries, no recent travel, reports having COVID over 1 year ago, no recent gym injuries. Denies tobacco, alcohol, or recreational drug use including medical marijuana. Unprovoked bilateral PE's. sPESI risk factors are low. Will obtain ECHO to determine RV Dysfunction, obtain BNP, and start Heparin gtt. Likely will continue Xarelto 15 mg twice daily for 21 days followed by 20 mg once daily once bridged. Discussed continuation of PE treatment x 3 months with this being his initial clot. WIll obtain renal US given left hydroureteronephrosis Will obtain COVID, RSV, and adenovirus testing. Patient will be admitted for further evaluation and management. Please see A/P for further details. Allergies Allergy/AdvReac Type Severity Reaction Status Date / Time atorvastatin [From Lipitor] AdvReac Joints hurt Verified 06/20/23 17:13 [id number] Allergy Unknown Unknown Uncoded 10/29/19 15:51 Home Medications Medication Instructions Recorded Confirmed Type coenzyme Q10 100 mg capsule 100 mg PO DAILY 10/29/19 06/20/23 History (CoQ-10) lisinopril 2.5 mg tablet 2.5 mg PO QAM 10/29/19 06/20/23 History omega 8-vob-jty-fish oil 1,000 mg 1 cap PO DAILY 10/29/19 06/20/23 History (120 mg-180 mg) capsule (Fish Oil) aspirin 81 mg tablet,delayed 81 mg PO DAILY #30 tabs 10/30/19 06/20/23 Rx release acetaminophen 500 mg tablet 1,000 mg PO Q6H PRN Pain 06/20/23 06/20/23 History (Tylenol Extra Strength) escitalopram oxalate 10 mg tablet 5 mg PO DAILY 06/20/23 06/20/23 History esomeprazole magnesium 20 mg 20 mg PO DAILY 06/20/23 06/20/23 History capsule,delayed release (Nexium) fexofenadine 180 mg tablet 180 mg PO DAILY PRN allergies 06/20/23 06/20/23 History magnesium oxide 400 mg PO DAILY 06/20/23 06/20/23 History multivitamin 1 tab PO DAILY 06/20/23 06/20/23 History rosuvastatin 10 mg tablet 10 mg PO QAM 06/20/23 06/20/23 History sodium chloride 0.65 % nasal spray 2 spray intranasal DIRECTED PRN 06/20/23 06/20/23 History aerosol (Saline Nasal Mist) Nasal Congestion Past Med/Surg History Medical History Nephrolithiasis Family history of patent foramen ovale Bilateral pulmonary embolism Schatzki's ring Nonischemic cardiomyopathy Adjustment disorder with depressed mood HLD (hyperlipidemia) Surgical History Hx of tonsillectomy S/P appy Family History Father , age 78 Coronary heart disease Social History Smoking Status: Never smoker Do You Dip or Chew Tobacco: No; Hx Alcohol Use: Yes Alcohol type: wine Hx Substance Use: No Preferred Language: Barbadian Communication Ability: Effective Tobacco Packer Required: No Beliefs That Will Affect Care: None marital status: Single Current Living Situation: Family Current Living Situation Comment: Sister and [id number]-of-[id number] live in his home current occupational status: employed 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 Feels Safe at Home: Yes Physical Activity Frequency: 5-6 Times per Week Assistive Devices: Glasses Review of Systems Review of Systems: Neuro: (-) Falls, trauma, slurred speech HEENT: (-) VERDUZCO, dizziness, dysphagia, visual or auditory changes CV: (-) CP, palpitations, swelling Resp: (-) SOB GI: (-) appetite changes, N/V/D, bowel changes : (-) urinary changes Skin: (-) rashes Psych: (-) anxiety, depression Physical Exam Physical Exam: Neuro: AAOx4, PERRLA, no aphagia, memory changes, CNII-XII grossly intact HEENT: head normocephalic, moist mucus membranes CV: S1/S2, (-) M/G/R, (-) edema, cap refill < 3 seconds Resp: Lungs CTA in all [place]. On RA GI: Abdomen S/NT/ND, Ax4 bowel sounds, (-) CVA tenderness Musculoskeletal: 5/5 B/L UE strength, 5/5 B/L LE strength. No gait disturbance; does not use any assist devices for ambulation Skin: (-) rashes , (-) erythema. Psych: euthymic mood Results & Data Results & Data Vital Signs (Past 12 Hours) Vital Signs Temp Pulse Resp BP Pulse Ox O2 Del Method 06/20/23 16:08 16 97 Room Air 06/20/23 15:26 88 06/20/23 13:44 36.4 C L 69 20 154/94 H 97 Room Air Laboratory Results Short CBC 06/20/23 Range/Units 14:02 WBC 9.65 (4.8-10.8) K/ul Hgb 12.9 L (14.0-18.0) g/dl Hct 39.7 L (42.0-52.0) % Plt Count 319 (130-400) K/uL BMP 06/20/23 14:02 Sodium 137 Potassium 4.1 Chloride 103 Carbon Dioxide 27 BUN 20 Creatinine 0.91 Glucose 102 H Calcium 9.3 Liver Function 06/20/23 Range/Units 14:02 Total Bilirubin 0.5 (0.2-1.0) mg/dl AST 19 (13-39) U/L ALT 13 (7-52) U/L Alkaline Phosphatase 81 (34-104) U/L Albumin 4.1 (3.4-5.0) gm/dl Urine 06/20/23 Range/Units 13:48 Urine Color Yellow Urine Appearance Clear (Clear) Urine pH 6.0 (4.5-7.5) Ur Specific [place] 1.020 (1.000-1.030) Urine Protein Negative (Negative) Urine Glucose (UA) Negative (Negative) Diagnostic Findings Venous Doppler Study 06/20/23 14:50 US venous doppler LE BI CLINICAL HISTORY: DVT, known PE TECHNIQUE: Bilateral lower extremity real-time compression venous ultrasound with Color Doppler imaging. Utilizing real-time ultrasonic imaging multiple real time high-resolution ultrasonic images with compression and noncompression maneuvers of the deep venous system in addition to color doppler imaging were performed from the common femoral vein through the proximal calf veins. COMPARISON: None available at the time of this dictation. FINDINGS/IMPRESSION: Currently there is normal compressibility of the deep venous system from the common femoral vein through the proximal calf veins. No superficial venous thrombosis is identified. ACT 112: Negative or not required by law. Electronically signed by: Marciano Madrigal M.D. 06/20/2023 4:28 PM Code Status & VTE Plan Code Status Full Code in the event of cardiac or respiratory arrest VTE Prophylaxis Plan VTE Prophylaxis will be ordered: Yes Supervising Physician Co-Signing Physician Notes Pt seen and examined by myself, Melonie Gallegos MD on the day of service. Care was coordinated with JULES Gordon. 78yoM presenting with pleuritic chest pain, found to have bilateral PEs. Denies a Hx of blood clots in the past, denies recent immobility or covid infection. Denies recent weight loss, decreased appetite and has no recent diagnosis of cancer. Resting comfortably on exam, breath sounds clear bilaterally, no increased oxygen need, no acute distress. CTA chest with bilateral pulmonary emboli, DVT lower extremities unremarkable. Echo to further evaluate for heart strain. CT abd/pelvis concerning for a distended bladder that is irregular and trabeculated with moderate to severe left hydroureteronephrosis likely related to bladder distention. Noted kidney stones as well. Renal US ordered, noted significant urinary retention- delatorre ordered, urology consult placed. Would be worth further workup to rule out a possible urological malignancy as the provoking factor for his PEs. ED started on xarelto, heparin drip for now, consider transition to DOAC on discharge. Otherwise as above.
[2023-06-20] MEDS ORDERED: Heparin IV Adult Wt-Based Low-Dose *NO* INITIAL Bolus Protocol IV STA (18:27)
[2023-06-20 19:12] LABS: Influenza A virus by PCR Negative (Neg); Influenza B virus by PCR Negative (Neg); RSV by PCR Negative (Neg); SARS CoV2 RNA(COVID-19) Ceph NEGATIVE (Negative)
--- NOTE | 2023-06-20 19:48 | Emergency Department Note ---
Impression & Plan Bilateral pulmonary embolism ED Provider Note CHIEF COMPLAINT: Back pain, abnormal CT HISTORY OF PRESENT ILLNESS: This 78-year-old male patient past medical history of hyperlipidemia, depression, monocular blindness, headaches, nephrolithiasis presents to the emergency department with complaints of right-sided back pain and exertional shortness of breath. The patient states he has had a mild cough. He went to the urgent care clinic through [facility] and a CT scan of the chest was ordered. The patient was unable to get this performed through the [facility] system in a timely manner and came to [facility] for an outpatient study. This study is positive for bilateral PEs. Patient was referred to the emergency department for further management. He denies any history of DVT/PE. He has not had any recent surgery or travel. He denies any known family history of blood clots. REVIEW OF SYSTEMS: A review of systems was performed with positives and pertinent negatives listed in the history of present illness. 10 systems were reviewed and are otherwise negative. ALLERGIES: see below MEDICATIONS: see below PMH: see below SOCIAL HISTORY: see below DDx: DVT, PE, malignancy, pneumonia, COVID among others. PHYSICAL EXAM: Vital signs reviewed. General: Well-appearing 78-year-old male, in no significant distress. HEENT: No scleral icterus, PERRLA, neck supple. Moist mucous membranes. Cardiovascular: Regular rate and rhythm, no extra sounds. Pulmonary: Clear to auscultation bilaterally, normal work of breathing, positive pleuritic pain with deep inspiration. Abdomen: Soft, nontender, nondistended, positive bowel sounds. Musculoskeletal: Atraumatic, no peripheral edema. Neurologic: Patient awake alert and oriented x 3, speech is clear Skin: Warm, dry, no rash EMERGENCY DEPARTMENT COURSE/MDM: This patient was evaluated and appeared to be in no significant distress. IV access was obtained and laboratory work was drawn. Imaging studies were reviewed and the patient in fact has bilateral pulmonary emboli without cardiac strain. DVT studies of the bilateral lower extremities are negative. Patient's laboratory work is reassuring. He was given 15 mg of Xarelto. Given his advanced age and bilateral pulmonary emboli PESI score is moderate, the case was discussed with the hospitalist service. Patient is aware of the plan and agrees. MONITORING: An order for cardiac monitoring was placed and the patient is noted to be in a normal sinus rhythm at 85 beats per minute. RADIOLOGY: Outpatient chest CT performed earlier in the day per my interpretation and radiology overread reveals bilateral PE. See final read below. Bilateral lower extremity Dopplers per radiology are negative for DVT EKG: To my interpretation reveals a normal sinus rhythm [address] segments. QTc is 426. No PVC, no PAC DISPOSITION: Admission I have personally spent 35 minutes of critical care time in the direct management of this patient. This was a life/limb threatening event. This 35 minutes is in excess of all separately billable procedures. Past Med/Surg History Medical History Nephrolithiasis Family history of patent foramen ovale Bilateral pulmonary embolism Schatzki's ring Nonischemic cardiomyopathy Adjustment disorder with depressed mood HLD (hyperlipidemia) Surgical History Hx of tonsillectomy S/P appy Family History Father , age 78 Coronary heart disease Social History Smoking Status: Never smoker Do You Dip or Chew Tobacco: No; Hx Alcohol Use: Yes Alcohol type: wine Hx Substance Use: No Preferred Language: Qatari Communication Ability: Effective Credentials Specialist Required: No Beliefs That Will Affect Care: None marital status: Single Current Living Situation: Family Current Living Situation Comment: Sister and [id number]-ml-jqw live in his home current occupational status: employed 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 Safe at Home: Yes Physical Activity Frequency: 5-6 Times per Week Assistive Devices: Glasses Allergies Allergies Allergy/AdvReac Type Severity Reaction Status Date / Time atorvastatin [From Lipitor] AdvReac Joints hurt Verified 06/20/23 17:13 [id number] Allergy Unknown Unknown Uncoded 10/29/19 15:51 Home Meds Home Medications Medication Instructions Recorded Confirmed coenzyme Q10 100 mg capsule 100 mg PO DAILY 10/29/19 06/20/23 (CoQ-10) lisinopril 2.5 mg tablet 2.5 mg PO QAM 10/29/19 06/20/23 omega 0-jus-dvq-fish oil 1,000 mg 1 cap PO DAILY 10/29/19 06/20/23 (120 mg-180 mg) capsule (Fish Oil) acetaminophen 500 mg tablet 1,000 mg PO Q6H PRN Pain 06/20/23 06/20/23 (Tylenol Extra Strength) escitalopram oxalate 10 mg tablet 5 mg PO DAILY 06/20/23 06/20/23 esomeprazole magnesium 20 mg 20 mg PO DAILY 06/20/23 06/20/23 capsule,delayed release (Nexium) fexofenadine 180 mg tablet 180 mg PO DAILY PRN allergies 06/20/23 06/20/23 magnesium oxide 400 mg PO DAILY 06/20/23 06/20/23 multivitamin 1 tab PO DAILY 06/20/23 06/20/23 rosuvastatin 10 mg tablet 10 mg PO QAM 06/20/23 06/20/23 sodium chloride 0.65 % nasal spray 2 spray intranasal DIRECTED PRN 06/20/23 06/20/23 aerosol (Saline Nasal Mist) Nasal Congestion Previous Rx's Medication Instructions Recorded aspirin 81 mg tablet,delayed 81 mg PO DAILY #30 tabs 10/30/19 release Results & Data (ED) Vital Signs Vital Signs - 24 hr 06/20/23 13:44 06/20/23 15:26 06/20/23 16:08 Temperature 36.4 C L Temperature Source Temporal Artery Scan Pulse Rate 69 88 Respiratory Rate 20 16 Blood Pressure 154/94 H Blood Pressure Mean 114 Pulse Oximetry 97 97 Oxygen Delivery Method Room Air Room Air Sepsis Recent Fever Within 48 Hours No Sepsis New/Unexplained Change in Mental Status N/A Sepsis Action Taken by Nursing No Action Required Home Medications Current Medication List: was personally reviewed by me Laboratory Data Attestation: I reviewed the patient's lab results. 06/20/23 14:02 06/20/23 14:02 Lab Results 06/20/23 06/20/23 Range/Units 13:48 14:02 WBC 9.65 (4.8-10.8) K/ul RBC 4.12 L (4.70-6.10) M/uL Hgb 12.9 L (14.0-18.0) g/dl Hct 39.7 L (42.0-52.0) % MCV 96.4 (80.0-100.0) fL MCH 31.3 (25.0-34.0) pg MCHC 32.5 (32.0-36.0) g/dL RDW Std Deviation 45.7 (36.4-46.3) fL RDW Coeff of George 12.8 (11.5-14.5) % Plt Count 319 (130-400) K/uL MPV 9.4 (9.4-12.4) fL Immature Gran % (Auto) 0.4 % Neut % (Auto) 71.2 % Lymph % (Auto) 13.3 % Atkinson % (Auto) 10.3 % Eos % (Auto) 4.4 % Baso % (Auto) 0.4 % Neut # (Auto) 6.88 H (1.40-6.50) K/uL Lymph # (Auto) 1.28 (1.20-3.40) K/uL Atkinson # (Auto) 0.99 H (0.11-0.59) K/uL Eos # (Auto) 0.42 (0.00-0.50) K/uL Baso # (Auto) 0.04 (0.00-0.20) K/uL Immature Gran # (Auto) 0.04 (0.01-0.20) K/uL PT 10.8 (9.0-12.0) Seconds INR 1.0 (0.9-1.1) APTT 34 H (21-31) Seconds PTT Ratio 1.2 Sodium 137 (136-145) mmol/L Potassium 4.1 (3.5-5.1) mmol/L Chloride 103 (98-107) mmol/L Carbon Dioxide 27 (21-32) mmol/L Anion Gap 7 (3-11) BUN 20 (6-23) mg/dl Creatinine 0.91 (0.6-1.4) mg/dl Est Cr Clr Drug Dosing 62.0 ml/min Est GFR ( Amer) 93.9 ml/min Est GFR (Non-Af Amer) 81.0 ml/min BUN/Creatinine Ratio 22.0 H (10-20) Glucose 102 H (70-99(Fasting)) mg/dl Calcium 9.3 (8.6-10.3) mg/dl Magnesium 2.0 (1.7-2.4) mg/dl Total Bilirubin 0.5 (0.2-1.0) mg/dl AST 19 (13-39) U/L ALT 13 (7-52) U/L Alkaline Phosphatase 81 (34-104) U/L Troponin I High Sens 4.4 (0-20) pg/ml Total Protein 7.4 (6.0-8.3) gm/dl Albumin 4.1 (3.4-5.0) gm/dl Globulin 3.3 (2.5-4.0) gm/dl Albumin/Globulin Ratio 1.2 (0.9-2) Urine Color Yellow Urine Appearance Clear (Clear) Urine pH 6.0 (4.5-7.5) Ur Specific [place] 1.020 (1.000-1.030) Urine Protein Negative (Negative) Urine Glucose (UA) Negative (Negative) Urine Ketones Negative (Negative) Urine Blood Negative (Negative) Urine Nitrite Negative (Negative) Urine Bilirubin Negative (Negative) Urine Urobilinogen Negative (Negative) Ur Leukocyte Esterase Negative (Negative) Administered Medications Discontinued Medications Rivaroxaban (Rivaroxaban 15 Mg Tab) 15 mg PO NOW STA Stop: 06/20/23 15:45 Last Admin: 06/20/23 16:30 Dose: 15 mg Documented By: DOLLY Imaging Data Radiologist's Impression: Venous Doppler Study 06/20/23 14:50 US venous doppler LE BI CLINICAL HISTORY: DVT, known PE TECHNIQUE: Bilateral lower extremity real-time compression venous ultrasound with Color Doppler imaging. Utilizing real-time ultrasonic imaging multiple real time high-resolution ultrasonic images with compression and noncompression maneuvers of the deep venous system in addition to color doppler imaging were performed from the common femoral vein through the proximal calf veins. COMPARISON: None available at the time of this dictation. FINDINGS/IMPRESSION: Currently there is normal compressibility of the deep venous system from the common femoral vein through the proximal calf veins. No superficial venous thrombosis is identified. ACT 112: Negative or not required by law. Electronically signed by: Marciano Madrigal M.D. 06/20/2023 4:28 PM ADDENDUM Trace right pleural effusion, mild bilateral atelectasis. Electronically signed by: Marciano Madrigal M.D. 06/20/2023 12:[address] angio chest PE protocol CLINICAL HISTORY: PE TECHNIQUE: Multidetector row helical CT of the chest was performed with angiographic protocol. Coronal and sagittal reformations were obtained. Coronal and sagittal MIPS were obtained from the axial data set and were submitted for review. Automated dose lowering techniques and/or adjustment according to patient size were utilized for this exam. CT DOSE: 1693.85 mGy.cm Comparison: None available at the time of this dictation. FINDINGS: Lungs and pleura: Mild atelectasis is seen, right greater than left. Heart and pericardium: Heart size is normal. No pericardial effusion. Vessels: There is right segmental and left lobar pulmonary embolus in the lower lobes. Mediastinum and zayda: Unremarkable. Chest wall and lower neck: Unremarkable. Abdomen: For findings below the diaphragm, please refer to CT of the abdomen dated the same. Bones: Degenerative changes in the thoracic spine. IMPRESSION: Bilateral pulmonary emboli are seen without evidence of right heart strain or pulmonary infarct. ACT 112: Negative or not required by law. Electronically signed by: Marciano Madrigal M.D. 06/20/2023 12:06 PM Dictated: 06/20/23 1159 Transcribed: 06/20/23 1159 Discharge Plan Visit Data Chief Complaint: Abnormal Labs/Diagnostic Testing Stated Complaint: BLOOD CLOT IN LUNG, ABNORMAL CT SCAN ED Provider: Gladys Eubanks Discharge Problem: Bilateral pulmonary embolism Patient Disposition: Admitted As Inpatient Discharge Instructions Interventions: ED Discharge Assessment Last Done: 06/20/23 19:20
[2023-06-20] MEDS ORDERED: TAMSULOSIN HCL 0.4 MG CAP PO ONE (20:34)
--- NOTE | 2023-06-20 20:48 | Urology Consultation ---
Date of Consultation June 20, 2023 Assessment & Plan (1) Urinary retention: The patient is being admitted on the hospitalist service secondary to pulmonary emboli. Please refer to the hospitalist dictation/notations concerning evaluation and management of this condition Concerning the patient's urinary retention we recommend the following: I suspect the patient's urinary retention is due to prostamegaly and bladder outlet obstruction based on the patient's symptoms and CT scan findings As noted the patient has had a Delatorre catheter placed. Would recommend maintaining Delatorre catheter gravity drainage to allow the bladder to decompress and rest. As the patient has never tried any pharmacologic intervention I have suggested the patient be placed on Flomax which I have ordered Consideration be given to obtaining a voiding trial in several days. I did discuss with the patient that if the Flomax does not sufficiently allow complete bladder emptying and he continues to have such symptoms consideration can be given to entertaining surgical intervention such as a TURP procedure. Th is, however, will need to be coordinated around his anticoagulation due to his recent diagnosis of pulmonary emboli Recommend following serial labs. As noted the patient has not had any evidence of acute kidney injury Supervising Physician Co-Signing Physician Notes I discussed Mr. Lucas's case and agree with the above documentation. Urinary retention is currently managed with delatorre catheter. Would keep this in place for at least 1 week to allow bladder rest. He can take tamsulosin and finasteride to help improve his bladder outlet. We will call to arrange outpatient followup for further management of urinary retention. Urology will sign off for now, please call with any questions or concerns. Eddie Ahumada MD. History of Present Illness Reason for Consultation: Urinary retention Bladder outlet obstruction Attending Physician: Melonie Gallegos MD History of Present Illness This a 78-year-old male who underwent a CT scan of the abdomen and pelvis as well as the chest as he has been having right-sided flank pain along with pleuritic chest pain specifically noting the pain is worse with taking a deep breath. The results of the studies will be depicted below. Since arrival to the emergency department this patient had labs and imaging which I independent reviewed. He had a renal ultrasound that has not been formally read, but the instructional media services technician noted that patient had a distended bladder with nearly 2000 cc of urine. The patient also had a lower extremity venous Doppler that showed no evidence of DVT bilaterally. Labs included a CBC where white blood cell count platelet count were normal. Hemoglobin and hematocrit 12.9 and 39.7. Coagulation studies showed an INR of 1.0. Chemistry profile showed sodium and potassium along with his BUN and creatinine were normal. Urinalysis was not indicative of infection. The patient was checked for COVID, influenza a and B, as well as RSV all of which were negative. An EKG showed normal sinus rhythm without changes indicative of ischemia. The patient did have an outpatient CT scan of the chest. This study showed that he had bilateral pulmonary emboli. There is no evidence of pulmonary infarct. The patient also had a CT scan of his abdomen pelvis that again demonstrated bilateral pulmonary emboli. The patient's bladder was noted be markedly distended on this study and he was noted to have severe left hydroureteronephrosis. There were no ureteral kidney stones noted patient was noted to have an enlarged prostate. Concerning the patient's pulmonary emboli the patient notes that he has no history of cancer. He has not taken any recent long trips and does not have any recent episodes of prolonged immobility. He denies any recent injuries to his lower extremities. He has no prior history of DVT or PE. When patient returned from ultrasound the patient was able to void spontaneously. The RN attending to the patient performed a bladder scan where the patient still had approximately 1500 cc postvoid residual. He therefore had a Delatorre catheter placed and immediately produced in excess of 1 L of urine. Due to the urinary retention noted above the urology was asked to see the patient. I did visit with the patient at the bedside. The patient does note over the past several weeks to months he notes that at times his urine stream is weak. He denies any urinary hesitancy or dysuria. He denies any hematuria. He does note urinary frequency and feels as though he does not empty his bladder completely. He says that he has never taken any medications for this issue At the time of my interview he was resting comfortably in bed he was in no distress Allergies Allergy/AdvReac Type Severity Reaction Status Date / Time atorvastatin [From Lipitor] AdvReac Joints hurt Verified 06/20/23 17:13 [id number] Allergy Unknown Unknown Uncoded 10/29/19 15:51 Home Medications Medication Instructions Recorded Confirmed Type coenzyme Q10 100 mg capsule 100 mg PO DAILY 10/29/19 06/20/23 History (CoQ-10) lisinopril 2.5 mg tablet 2.5 mg PO QAM 10/29/19 06/20/23 History omega 3-kxk-lnx-fish oil 1,000 mg 1 cap PO DAILY 10/29/19 06/20/23 History (120 mg-180 mg) capsule (Fish Oil) aspirin 81 mg tablet,delayed 81 mg PO DAILY #30 tabs 10/30/19 06/20/23 Rx release acetaminophen 500 mg tablet 1,000 mg PO Q6H PRN Pain 06/20/23 06/20/23 History (Tylenol Extra Strength) escitalopram oxalate 10 mg tablet 5 mg PO DAILY 06/20/23 06/20/23 History esomeprazole magnesium 20 mg 20 mg PO DAILY 06/20/23 06/20/23 History capsule,delayed release (Nexium) fexofenadine 180 mg tablet 180 mg PO DAILY PRN allergies 06/20/23 06/20/23 History magnesium oxide 400 mg PO DAILY 06/20/23 06/20/23 History multivitamin 1 tab PO DAILY 06/20/23 06/20/23 History rosuvastatin 10 mg tablet 10 mg PO QAM 06/20/23 06/20/23 History sodium chloride 0.65 % nasal spray 2 spray intranasal DIRECTED PRN 06/20/23 06/20/23 History aerosol (Saline Nasal Mist) Nasal Congestion Patient History Medical History Nephrolithiasis Family history of patent foramen ovale Bilateral pulmonary embolism Schatzki's ring Nonischemic cardiomyopathy Adjustment disorder with depressed mood HLD (hyperlipidemia) Surgical History Hx of tonsillectomy S/P appy Family History Father , age 78 Coronary heart disease Social History Smoking Status: Former smoker Do You Dip or Chew Tobacco: No; Hx Alcohol Use: No Hx Substance Use: No Preferred Language: Belarusian Communication Ability: Effective Customer Retention Specialist Required: No Beliefs That Will Affect Care: None marital status: Single Current Living Situation: Family Current Living Situation Comment: Sister and kqmslap-vs-vnu live in his home current occupational status: employed 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 Feels Safe at Home: Yes Physical Activity Frequency: 5-6 Times per Week Assistive Devices: Glasses Review of Systems Constitutional: no fever and no chills Eyes: + corrective lenses Ear, Nose, Mouth, Throat: no ear pain and no hearing loss Respiratory: + pain on inspiration; no cough and no d yspnea Cardiovascular: + chest pain (Pleuritic) Gastrointestinal: no abdominal pain, no nausea and no vomiting Genitourinary: + as per Subjective / HPI Musculoskeletal: + back pain (Right flank) Integumentary: no rash Neurologic: no localized weakness Physical Exam Constitutional: WD/WN, vitals as above Eyes: Wears glasses ENMT: Ears: no hearing impairment and no external ear abnormality Mouth: no oropharynx abnormality Neck: trachea midline Respiratory: normal respiratory effort; no respiratory distress and no labored breathing Cardiovascular: Rate/Rhythm: regular rate and regular rhythm Gastrointestinal (Abdomen): Abdomen is soft, nonrigid, and nondistended. There is no pain with palpation Musculoskeletal: No calf tender Skin: no rashes Neurologic: moves all extremities Psychiatric: A+Ox3, euthymic affect No CVA tenderness noted bilaterally the time my exam. The patient had Delatorre catheter in place that was draining clear yellow urine and appeared to be patent Results & Data Vital Signs (Past 12 Hours) Vital Signs Temp Pulse Pulse Resp BP BP Pulse Ox 06/20/23 17:21 36.7 C 85 16 119/76 97 06/20/23 16:08 16 97 06/20/23 15:26 88 06/20/23 13:44 36.4 C L 69 20 154/94 H 97 O2 Del Method 06/20/23 17:21 Room Air 06/20/23 16:08 Room Air 06/20/23 15:26 06/20/23 13:44 Room Air PG Care Time/CCT Total # of Minutes Spent Total Time Spent with Patient: Total time spent is greater than 50% in coordination of care (as documented) at patient's floor/unit and/or counseling patient: Coding Level of Care Code 80887 INT INP/OBS CARE 3/75MIN Diagnoses Urinary retention R33.9
--- NOTE | 2023-06-20 22:20 | Ultrasound Report ---
ULTRASOUND KIDNEYS AND BLADDER CLINICAL HISTORY: Nephrolithiasis. Flank pain. COMPARISON STUDY: Abdominal CT performed the same day 06/20/2023. TECHNIQUE: Real-time, grayscale, and color flow sonography of the kidneys and bladder is performed. I mages are reviewed in the transverse and longitudinal planes. FINDINGS: Kidneys: The kidneys are normal in size and echotexture. The right kidney measures 9.6 x 5.8 x 4.7 cm and the left kidney measures 12.7 x 5.5 x 3.5 cm. There is moderate to severe left-sided hydroureter onephrosis. No hydronephrosis is seen on the right. Nonobstructing right renal calculi measure up to 6 mm. A 4 mm nonobstructing calculus is seen on the left. There is no sonographic evidence of contour deforming renal mass lesion. No perinephric fluid is identified. Bladder: The bladder is markedly distended, an the wall appears thickened/trabeculated. The bladder v olume measures approximately 2 L. Ureteral jets were not seen. IMPRESSION: 1. Markedly distended bladder with an estimated volume of 2 L. Decompression is recommended. 2. There is moderate to severe left hydroureteronephrosis. This is similar to today's CT scan. 3. Bilateral nephrolithiasis. 4. No hydronephrosis is seen on the right. ACT 112: Negative or not required by law. Electronically signed by: Ugo Ferguson M.D. 06/20/2023 10:18 PM
--- OUTSIDE RECORDS SUMMARY | 2023-06-21 04:56 | External Medical Summary | Summary of Care ---
Author Name Unknown Organization [facility] Address [address] [place] [address] Phone [phone] Care Team Providers Care Electrostatic Paint Operator Name Role Phone Pelon Navarro MD Primary Care Provider + Reason for Visit * Reason Onset Date Comments Test Results Lab 06/20/2023 Encounter Details Date Type Department Care Team ([facility] st Contact Info) Description [facility] [address] [place] [address] Jose Alston PA-C [address] [place] [address] Test Results Lab Allergies Active Allergy Reactions Criticality Noted Date Comments Atorvastatin Muscle pain 11/13/2017 documented as of this encounter (statuses as of 06/20/2023) Medications Medication Sig Dispensed Refills Start Date End Date Status OMEGA 3 1000 MG PO CAPS 2 CAPSULES DAILY WITH A MEAL 0 08/10/2014 Active Aspirin 81 MG Tablet Take 1 Tablet by mouth in the morning. 0 11/01/2015 Active Multiple Vitamins-Minerals (MULTIVITAMIN ADULT) TABS Take by mouth. 0 08/21/2016 Active Coenzyme Q10 (COQ-10) 100 MG CAPS Take 1 Cap by mouth daily. 0 Active Magnesium 400 MG Oral Tablet Take 1 Tablet by mouth in the morning. 90 Tablet 3 07/25/2022 Active Esomeprazole Magnesium 20 MG Oral Tablet Delayed ReleaseIndications: Gastroesophageal reflux disease without esophagitis 20 mg by mouth one time a day 90 Tablet 3 07/25/2022 Active Saline Nasal [place] 0.65 % Nasal SolutionIndications :Post-nasal drip Administer 2 Sprays into each nostril as needed for Congestion. for nasal dryness or congestion 0 07/25/2022 Active Fexofenadine HCl 180 MG Oral Tablet (Francoise) Take 1 Tablet by mouth daily as needed. 0 Active Rosuvastatin Calcium 10 MG Oral Tablet (Crestor)Indication s:Hyperlipidemia TAKE ONE TABLET BY MOUTH EVERY MORNING 90 Tablet 3 07/30/2022 07/30/2023 Active Escitalopram Oxalate 10 MG Oral Tablet (Lexapro)Indication s:Anxiety state Take 0.5 Tablets by mouth in the morning. 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/10/2018 GERD (gastroesophageal reflux disease) 5 Hyperlipidemia 08/10/2014 Adjustment disorder with depressed mood 10/20/19 08 Anxiety state 10/20/2007 documented as of this encounter (statuses as of 06/20/2023) Resolved Problems Problem Noted Date Diagnosed Date Resolved Date NICM (nonischemic cardiomyopathy) 01/03/2022 01/03/2022 NICM (nonischemic cardiomyopathy) 01/03/2022 01/03/2022 TIA (transient ischemic attack) 06/02/2020 01/03/2022 Heart failure, systolic, due to idiopathic cardiomyopathy 04/05/2012 07/25/2022 documented as of this encounter (statuses as of 06/20/2023) Immunizations Name Administration Dates Next Due Pneumococcal Conjugate Vacc, 13 Valent (Prevnar) 11/01/2015 Pneumococcal Polysaccharide PPV23 (Pneumovax) 07/25/2012 Season Influenza, Quad, PF, Adjuvanted, 65+ Yrs, IM (FLUAD) 05/30/2020 Seasonal Influenza Virus Vac cine, Unspecified Formulation 06/27/2021,05/30/2020,10/22/2019,06/02,05/27/2016,06/28/2015,05/26/2014 ,06/28/2013,07/25/2012 Seasonal Influenza, Quadriva lent Hd (Fluzone Hd) 06/29/2022,06/27/2021 Seasonal Influenza, Quadriva lent, No Preserve, IM 06/02/2017 Seasonal Influenza, Split, I IV3, With Preserve, Inj 06/28/2015,05/26/2014,06/28/2013,07/25 Seasonal Influenza, Trivalen t, Adjuvanted, 65+ yrs 10/22/2019 Seasonal Influenza, Trivalen t, High Dose, No Preserve, IM 05/27/2016 TDAP (age 11 and older)(Adacel) 07/20/2021 documented as of this encounter Social History Tobacco Use Types Packs/Day Years Used Date Smoking Tobacco: Former Cigarettes Q uit: 07/15/1974 Smokeless Tobacco: Never Comments:light smoker in pas t Alcohol Use Standard Drinks/Week Comments No 0 (1 standard drink = 0.6 oz pur e alcohol) PHQ-2 Answer Date Recorded PHQ Adult Total Score 0 01/31/2023 Hunger Vital Sign Answer Date Recorded Within the past 12 months, y ou worried that your food would run out before you got the money to buy more. Patient refused Within the past 12 months, t he food you bought just didn't last and you didn't have money to get more. Patient refused Sex and Gender Information Value Date Recorded Sex Assigned at Male 11/10/2018 9:15 AM EDT Gender Identity Male 11/10/2018 9:15 AM EDT Sexual Orientation Straight 11/10/2018 9: 15 AM EDT Job Start Date Occupation Industry Not on file Not on file Not on file documented as of this encounter Miscellaneous Notes * Telephone Encounter - Jose Alston PA-C - 06/20/2023 12:50 PM EST Called patient to go over test results where waiting call back. documented in this encounter Plan of Treatment Upcoming Encounters Date Type Department Care Team (Late st Contact Info) Description 07/10/2023 1:30 PM EST [facility] [address] [facility] [place] [address] Ivan Titus MD [address] [place] [address] 08/08/2023 2:40 PM EST Office Visit General Internal Medicine [facility] [address] [facility] [place] [address] Pelon Nvaarro MD [address] [facility] [place] [address] 11/27/2023 9:30 AM EDT Cardiac Studies Cardiology, [facility] [address] [facility] [place] [address] [facility] [address] [place] [address] Health Maintenance Due Date Last Done Comments COVID-19 Vaccine (#1) 1945 Zoster Vaccines (1 of 2) 1996 Influenza Vaccine (FLU shot) (#1) 2023 06/29/2022, 06/27/2021, 06/27/2021, Additional history exists Depression Screening 02/01/2024 01/31/2023 DTaP,Tdap,and Td Vaccines (2 - Td or Tdap) 07/20/2031 07/20/2021 Pneumococcal Vaccine: 65+ Years Completed 11/01/2015, 07/25/2012 GARDASIL-HPV IMMUNIZATION SERIES Aged Out No longer eligible based on patient's age to complete this topic Hepatitis B Aged Out No longer eligi ble based on patient's age to complete this topic MENINGOCOCCAL (MENACTRA/MENVEO) Aged Out No longer eligible based on patient's age to complete this topic documented as of this encounter Medical Devices Not on filedocumented as of this encounter Care Teams Electrostatic Paint Operator Relationship Specialty Start Date End Date Pelon Navarro MD [address] [facility], [place] [phone] PCP - General Internal Medicine 05/03/21 documented as of this encounter
--- OUTSIDE RECORDS SUMMARY | 2023-06-21 04:56 | External Medical Summary | Summary of Care ---
Author Name Unknown Organization [facility] Address [address] [place] [address] Phone [phone] Care Team Providers Care Senior Operations Analyst Name Role Phone Pelon Navarro MD Primary Care Provider + Reason for Visit * Reason Onset Date Comments Test Results Imaging Study 06/20/2023 Encounter Details Date Type Department Care Team ([facility] st Contact Info) Description [facility] [address] [place] [address] Jose Alston PA-C [address] [place] [address] Test Results Imaging Study Allergies Active Allergy Reactions Criticality Noted Date [...] 90 Tablet 3 07/25/2022 Active Saline Nasal [place] 0.65 % Nasal SolutionIndications :Post-nasal drip Administer [...] Encounter - Jose Alston PA-C - 06/20/2023 1:07 PM EST Spoke to patient regarding test results where patient had bilateral Pes ([facility] Due to the extent of PE, recommended patient to go to ER immediately for further workup. All questions answered. documented in this encounter Plan of Treatment Upcoming Encounters Date Type Department Care Team (Late st Contact Info) Description 07/10/2023 1:30 PM EST Office Visit Cardiology, [facility] [address] [place] [address] Ivan Titus MD [address] [facility] [place] [address] 08/08/2023 2:40 PM EST Office Visit General Internal Medicine [facility] [address] [facility] [place] [address] Pelon Navarro MD [address] [facility] [place] [address] 11/27/2023 9:30 AM EDT Cardiac Studies Cardiology, [facility] [address] [facility] [place] [address] [facility] [address] [facility] [place] [address] Health Maintenance Due Date Last Done Comments [...] Not on filedocumented as of this encounter Visit Diagnoses Diagnosis Bilateral pulmonary embolism (HCC)- Primary Other pulmonary embolism and infarction documented in this encounter Care Teams Senior Operations Analyst Relationship Specialty Start Date End Date Pelon Navarro MD [address] [place] [address] PCP - General Internal Medicine 05/03/21 documented as of this encounter
[2023-06-21] MEDS: PANTOprazole 40 MG TAB PO SCH (07:44)
[2023-06-21] MEDS: ASPIRIN 81 MG ECTAB PO SCH (07:44)
[2023-06-21] MEDS: lisinopril 2.5 MG TAB PO SCH (07:44)
[2023-06-21] MEDS: ESCITALOPRAM OXALATE 10 MG TAB PO SCH (07:45)
[2023-06-21] MEDS: ROSUVASTATIN CALCIUM 10 MG TAB PO SCH (07:45)
[2023-06-21] MEDS: TAMSULOSIN HCL 0.4 MG CAP PO SCH (07:46)
[2023-06-21] MEDS ORDERED: HEPARIN SODIUM/DEXTROSE 25,000 UNITS/500 ML BAG IV SCH (08:00)
[2023-06-21] MEDS ORDERED: RIVAROXABAN 15 MG TAB PO SCH (08:00)
--- NOTE | 2023-06-21 08:21 | Hospitalist Progress Note ---
Date of Service June 21, 2023 Assessment & Plan (1) Bilateral pulmonary embolism: (2) HLD (hyperlipidemia): (3) Adjustment disorder with depressed mood: (4) HTN (hypertension): (5) Nephrolithiasis: Plan Mr. Lucas is a 78 year old male that presented to the ED after being evaluated at [facility] day prior for evaluation of his back pain and right flank pain that started after a gym workout on Saturday. Chest CT was performed today with results revealing bilateral PE. No previous DVT/PE in his history. Bilateral Pulmonary Embolism: Acute LE Doppler US negative for DVT. Chest CT Bilateral pulmonary emboli without evidence of right heart strain or pulmonary infarct. Abdomen and pelvis CT revealed multiple bilateral pulmonary emboli, trace right pleural effusion, right lower lobe airspace opacity may reflect a pulmonary infarct or atelectasis. Markedly distended bladder. No leukocytosis, or TODD. ECG NSR with QTc 426. Troponin negative urine negative. BNP 68 sPESI risk stratification low: Obtained ECHO to determine RV dysfunction -LV is normal in size. There is borderline concentric LVH. LV wall motion is normal. EF 55 to 60%. LA is mildly dilated. RA size is normal. Aortic valve sclerosis mild, with no significant aortic valvular stenosis. Trace aortic regurg. There is mild to moderate tricuspid regurg. Doppler findings do not suggest pulmonary hypertension. RV is normal in size and function. PO Xarelto started in ED; started low dose no bolus heparin gtt on admission; likely bridge to Xarelto (15 mg PO BID x21 days followed by 20 mg daily x 3 months) or other DOAC Pt will require further evaluation for cause of PE; need to consider malignancy Urinary retention acute Abdomen/Pelvic CT: Moderate to severe left hydroureteronephrosis likely related to bladder distention. The findings suggest chronic bladder outlet obstruction related to an enlarged prostate. Bilateral nephrolithiasis. No ureteral calculi. No bowel obstruction. Obtained renal US given findings outlined above - 1. Markedly distended bladder with an estimated volume of 2 L. Decompression is recommended. 2. There is moderate to severe left hydroureteronephrosis. This is similar to today's CT scan. 3. Bilateral nephrolithiasis. 4. No hydronephrosis is seen on the right. Creatinine 0.9 on admission Urology consulted - continue Delatorre cath for at least 1 week, follow up as outpt, started pt on Flomax HTN: Chronic Takes Coreg and Lisinopril; continue HLD: chronic stable Takes Rosuvastatin; continue Depression: Chronic stable Takes Lexapro; continue Disposition: PCP: Dr. Navarro Code Status: Full Code VTE Prophylaxis: Heparin gtt Admission and Anticipated Discharge Date Admission Date: June 20, 2023 Subjective Pt seen in follow up of b/l PE, urinary retention He is on iv heparin and delatorre catheter was placed in ED - seen by urology and plan for outpt follow up Currently laying in bed in NAD, but feeling tired Denies any chest pain or shortness of breath. Denies headache, or abd. pain. Review of Systems Review of Systems: All systems reviewed & are unremarkable except as noted in Subjective Physical Exam Physical Exam: General: WD/WN M in NAD HEENT: head normocephalic, moist mucus membranes CV: S1/S2, (-) M/G/R, (-) edema Resp: Lungs CTA in all [place]. On RA GI: Abdomen S/NT/ND, Ax4 bowel sounds : + Delatorre catheter draining dark yellow urine Musculoskeletal: moves extremities Skin: (-) rashes , (-) erythema. Neuro: awake, alert oriented, answers simple questions appropriately, speech flu ent, moves extremities Psych: euthymic mood Results & Data Results & Data Vital Signs (Past 12 Hours) Vital Signs Temp Pulse Pulse Pulse Resp BP BP 06/21/23 07:56 37.0 C 69 20 125/73 06/21/23 03:24 37.2 C 86 18 107/56 L 06/20/23 23:20 36.9 C 88 18 113/63 06/20/23 22:55 83 06/20/23 22:00 84 06/20/23 21:15 37.0 C 81 18 145/79 H 06/20/23 20:57 84 16 127/75 Pulse Ox O2 Del Method 06/21/23 07:56 92 Room Air 06/21/23 03:24 93 Room Air 06/20/23 23:20 93 Room Air 06/20/23 22:55 06/20/23 22:00 06/20/23 21:15 94 Room Air 06/20/23 20:57 95 Room Air Laboratory Results 06/21/23 06/21/23 06/20/23 Range/Units 15:34 08:33 18:49 WBC 11.11 H (4.8-10.8) K/ul RBC 4.01 L (4.70-6.10) M/uL Hgb 12.7 L (14.0-18.0) g/dl Hct 39.1 L (42.0-52.0) % MCV 97.5 (80.0-100.0) fL MCH 31.7 (25.0-34.0) pg MCHC 32.5 (32.0-36.0) g/dL RDW Std Deviation 45.8 (36.4-46.3) fL RDW Coeff of George 12.8 (11.5-14.5) % Plt Count 343 (130-400) K/uL MPV 9.2 L (9.4-12.4) fL Immature Gran % (Auto) 0.4 % Neut % (Auto) 71.9 % Lymph % (Auto) 13.0 % [place] % (Auto) 10.5 % Eos % (Auto) 3.8 % Baso % (Auto) 0.4 % Neut # (Auto) 8.00 H (1.40-6.50) K/uL Lymph # (Auto) 1.44 (1.20-3.40) K/uL [place] # (Auto) 1.17 H (0.11-0.59) K/uL Eos # (Auto) 0.42 (0.00-0.50) K/uL Baso # (Auto) 0.04 (0.00-0.20) K/uL Immature Gran # (Auto) 0.04 (0.01-0.20) K/uL PT 11.6 (9.0-12.0) Seconds INR 1.1 (0.9-1.1) APTT 39 H (21-31) Seconds PTT Ratio 1.4 Heparin Anti-Xa, Unfract 0.32 (0.3-0.7) IU/ml Sodium 137 (136-145) mmol/L Potassium 4.0 (3.5-5.1) mmol/L Chloride 102 (98-107) mmol/L Carbon Dioxide 27 (21-32) mmol/L Anion Gap 8 (3-11) BUN 20 (6-23) mg/dl Creatinine 0.93 (0.6-1.4) mg/dl Est Cr Clr Drug Dosing 60.7 ml/min Est GFR ( Amer) 91.5 ml/min Est GFR (Non-Af Amer) 78.9 ml/min BUN/Creatinine Ratio 21.5 H (10-20) Glucose 102 H (70-99(Fasting)) mg/dl Calcium 9.5 (8.6-10.3) mg/dl Phosphorus 2.9 (2.5-4.9) mg/dl Magnesium 2.0 (1.7-2.4) mg/dl Total Bilirubin 0.7 (0.2-1.0) mg/dl AST 19 (13-39) U/L ALT 11 (7-52) U/L Alkaline Phosphatase 82 (34-104) U/L B-Natriuretic Peptide 68 (0-100) pg/ml Total Protein 7.3 (6.0-8.3) gm/dl Albumin 4.1 (3.4-5.0) gm/dl Globulin 3.2 (2.5-4.0) gm/dl Albumin/Globulin Ratio 1.3 (0.9-2) SARS-CoV-2 (PCR) (Negative) Influenza Type A (PCR) (Neg) Influenza Type B (PCR) (Neg) RSV (RT-PCR) (Neg) 06/20/23 06/20/23 Range/Units 18:05 17:06 WBC (4.8-10.8) K/ul RBC (4.70-6.10) M/uL Hgb (14.0-18.0) g/dl Hct (42.0-52.0) % MCV (80.0-100.0) fL MCH (25.0-34.0) pg MCHC (32.0-36.0) g/dL RDW Std Deviation (36.4-46.3) fL RDW Coeff of George (11.5-14.5) % Plt Count (130-400) K/uL MPV (9.4-12.4) fL Immature Gran % (Auto) % Neut % (Auto) % Lymph % (Auto) % [place] % (Auto) % Eos % (Auto) % Baso % (Auto) % Neut # (Auto) (1.40-6.50) K/uL Lymph # (Auto) (1.20-3.40) K/uL [place] # (Auto) (0.11-0.59) K/uL Eos # (Auto) (0.00-0.50) K/uL Baso # (Auto) (0.00-0.20) K/uL Immature Gran # (Auto) (0.01-0.20) K/uL PT (9.0-12.0) Seconds INR (0.9-1.1) APTT (21-31) Seconds PTT Ratio Heparin Anti-Xa, Unfract (0.3-0.7) IU/ml Sodium (136-145) mmol/L Potassium (3.5-5.1) mmol/L Chloride (98-107) mmol/L Carbon Dioxide (21-32) mmol/L Anion Gap (3-11) BUN (6-23) mg/dl Creatinine (0.6-1.4) mg/dl Est Cr Clr Drug Dosing ml/min Est GFR ( Amer) ml/min Est GFR (Non-Af Amer) ml/min BUN/Creatinine Ratio (10-20) Glucose (70-99(Fasting)) mg/dl Calcium (8.6-10.3) mg/dl Phosphorus (2.5-4.9) mg/dl Magnesium 2.1 (1.7-2.4) mg/dl Total Bilirubin (0.2-1.0) mg/dl AST (13-39) U/L ALT (7-52) U/L Alkaline Phosphatase (34-104) U/L B-Natriuretic Peptide (0-100) pg/ml Total Protein (6.0-8.3) gm/dl Albumin (3.4-5.0) gm/dl Globulin (2.5-4.0) gm/dl Albumin/Globulin Ratio (0.9-2) SARS-CoV-2 (PCR) NEGATIVE (Negative) Influenza Type A (PCR) Negative (Neg) Influenza Type B (PCR) Negative (Neg) RSV (RT-PCR) Negative (Neg) Medications Administered Current Inpatient Medications Acetaminophen (Acetaminophen 325 Mg Tab) 650 mg PO Q4H PRN PRN Reason: Pain or Fever Stop: 07/20/23 16:56 Al Hydrox/Mg Hydrox/Simethicone (Aluminum/Magnesium Susp 30 Ml Udc) 15 ml PO Q4H PRN PRN Reason: Dyspepsia Stop: 07/20/23 16:56 Aspirin (Aspirin 81 Mg Ectab) 81 mg PO DAILY [facility] Stop: 07/21/23 08:59 Last Admin: 06/21/23 07:44 Dose: 81 mg Escitalopram Oxalate (Escitalopram Oxalate 10 Mg Tab) 5 mg PO DAILY [facility] Stop: 07/21/23 08:59 Last Admin: 06/21/23 07:45 Dose: 5 mg Heparin Sodium/Dextrose (Heparin Sodium/Dextrose) 25,000 units in 500 mls @ 15 mls/hr IV .Q24H [facility]; Protocol Stop: 07/21/23 07:59 Lisinopril (Lisinopril 2.5 Mg Tab) 2.5 mg PO [facility] Stop: 07/21/23 08:59 Last Admin: 06/21/23 07:44 Dose: 2.5 mg Magnesium Hydroxide (Magnesium Hydroxide Susp 30 Ml Udc) 30 ml PO Q12H PRN PRN Reason: Constipation Stop: 07/20/23 16:56 Ondansetron HCl (Ondansetron Inj 2 Mg/Ml 2 Ml Vial) 4 mg IV Q6H PRN PRN Reason: Nausea Stop: 07/20/23 16:56 Pantoprazole Sodium (Pantoprazole 40 Mg Tab) 40 mg PO DAILY [facility] Stop: 07/21/23 08:59 Last Admin: 06/21/23 07:44 Dose: 40 mg Polyethylene Glycol (Polyethylene (Miralax) 17 Gm Pack) 17 gm PO DAILY PRN PRN Reason: Constipation Stop: 07/20/23 16:56 Rosuvastatin Calcium (Rosuvastatin Calcium 10 Mg Tab) 10 mg PO [facility] Stop: 07/21/23 08:59 Last Admin: 06/21/23 07:45 Dose: 10 mg Tamsulosin HCl (Tamsulosin Hcl 0.4 Mg Cap) 0.4 mg PO [facility] Stop: 07/21/23 08:59 Last Admin: 06/21/23 07:46 Dose: 0.4 mg
[2023-06-21 09:03] LABS: Basophils # (auto) 0.04 K/uL (0.00-0.20); Basophils % (auto) 0.4 %; Eosinophils # (auto) 0.42 K/uL (0.00-0.50); Eosinophils % (auto) 3.8 %; Hematocrit (blood only) 39.1 % (42.0-52.0); Hemoglobin 12.7 g/dl (14.0-18.0); Immature Granulocytes # (auto) 0.04 K/uL (0.01-0.20); Immature Granulocytes % (auto) 0.4 %; Lymphocytes # (auto) 1.44 K/uL (1.20-3.40); Mean Corpuscular Hemoglobin 31.7 pg (25.0-34.0); Mean Corpuscular Hgb Conc 32.5 g/dL (32.0-36.0); Mean Corpuscular Volume 97.5 fL (80.0-100.0); Mean Platelet Volume 9.2 fL (9.4-12.4); Monocytes # (auto) 1.17 K/uL (0.11-0.59); Monocytes % (auto) 10.5 %; Neutrophils % (auto) 71.9 %; Platelet Count 343 K/uL (130-400); RDW Coefficient of Variation 12.8 % (11.5-14.5); RDW Standard Deviation 45.8 fL (36.4-46.3); Red Blood Count 4.01 M/uL (4.70-6.10); White Blood Count 11.11 K/ul (4.8-10.8)
[2023-06-21 09:32] LABS: Albumin Globulin Ratio 1.3 (0.9-2); Albumin Level 4.1 gm/dl (3.4-5.0); BUN Creatinine Ratio 21.5 (10-20); Bilirubin,Total 0.7 mg/dl (0.2-1.0); Calcium 9.5 mg/dl (8.6-10.3); Creatinine Clr Calc Pharmacy 60.7 ml/min; Est GFR (African American) 91.5 ml/min; Est GFR (Non-African American) 78.9 ml/min; Globulin 3.2 gm/dl (2.5-4.0); Phosphorus 2.9 mg/dl (2.5-4.9); Total Protein 7.3 gm/dl (6.0-8.3)
[2023-06-21 09:49] LABS: INR 1.1 (0.9-1.1); Partial Thromboplastin Ratio 1.4; Partial Thromboplastin Time 39 Seconds (21-31); Prothrombin Time 11.6 Seconds (9.0-12.0)
--- NOTE | 2023-06-21 12:25 | Electrocardiogram Report ---
Test Reason : Blood Pressure : / mmHG Vent. Rate : 086 BPM Atrial Rate : 086 BPM P-R Int : 162 ms QRS Dur : 094 ms QT Int : 356 ms P-R-T Axes : 019 017 036 degrees QTc Int : 426 ms Normal sinus rhythm Normal ECG When compared with ECG of 29-OCT-2019 15:39, No significant change was found Confirmed by Clarence Sarabia [id number]) on 06/21/2023 12:24:48 PM Referred By: REFERRED SELF Confirmed By:Clarence Sarabia
[2023-06-21 16:14] LABS: ANTI-Xa, UFH(UnfractionatedHep 0.32 IU/ml (0.3-0.7)
[2023-06-21 22:09] LABS: Hematocrit (blood only) 34.2 % (42.0-52.0); Hemoglobin 11.3 g/dl (14.0-18.0)
[2023-06-22 06:26] LABS: Hematocrit (blood only) 34.8 % (42.0-52.0); Hemoglobin 11.5 g/dl (14.0-18.0); Mean Corpuscular Hemoglobin 31.9 pg (25.0-34.0); Mean Corpuscular Volume 96.4 fL (80.0-100.0); Mean Platelet Volume 9.1 fL (9.4-12.4); Platelet Count 301 K/uL (130-400); RDW Coefficient of Variation 12.6 % (11.5-14.5); RDW Standard Deviation 44.4 fL (36.4-46.3); Red Blood Count 3.61 M/uL (4.70-6.10); White Blood Count 8.75 K/ul (4.8-10.8)
[2023-06-22 06:45] LABS: BUN Creatinine Ratio 20.2 (10-20); Calcium 8.8 mg/dl (8.6-10.3); Est GFR (African American) 90.3 ml/min; Est GFR (Non-African American) 77.9 ml/min; Potassium 4.2 mmol/L (3.5-5.1)
--- NOTE | 2023-06-22 07:42 | Hospitalist Progress Note ---
Date of Service June 22, 2023 Assessment & Plan (1) Bilateral pulmonary embolism: (2) HLD (hyperlipidemia): (3) Adjustment disorder with depressed mood: (4) HTN (hypertension): (5) Nephrolithiasis: Plan Mr. Lucas is a 78 year old male that presented to the ED after being evaluated at [facility] day prior for evaluation of his back pain and right flank pain that started after a gym workout on Saturday. Chest CT was performed today with results revealing bilateral PE. No previous DVT/PE in his history. Bilateral Pulmonary Embolism: Acute LE Doppler US negative for DVT. Chest CT Bilateral pulmonary emboli without evidence of right heart strain or pulmonary infarct. Abdomen and pelvis CT revealed multiple bilateral pulmonary emboli, trace right pleural effusion, right lower lobe airspace opacity may reflect a pulmonary infarct or atelectasis. Markedly distended bladder. No leukocytosis, or TODD. ECG NSR with QTc 426. Troponin negative urine negative. BNP 68 sPESI risk stratification low: Obtained ECHO to determine RV dysfunction -LV is normal in size. There is borderline concentric LVH. LV wall motion is normal. EF 55 to 60%. LA is mildly dilated. RA size is normal. Aortic valve sclerosis mild, with no significant aortic valvular stenosis. Trace aortic regurg. There is mild to moderate tricuspid regurg. Doppler findings do not suggest pulmonary hypertension. RV is normal in size and function. PO Xarelto started in ED; started low dose no bolus heparin gtt on admission; will put pt back on Xarelto on discharge (15 mg PO BID x21 days followed by 20 mg daily x 3 months) Pt will require further evaluation for cause of PE; need to consider malignancy Urinary retention acute Abdomen/Pelvic CT: Moderate to severe left hydroureteronephrosis likely related to bladder distention. The findings suggest chronic bladder outlet obstruction related to an enlarged prostate. Bilateral nephrolithiasis. No ureteral calculi. No bowel obstruction. Obtained renal US given findings outlined above - 1. Markedly distended bladder with an estimated volume of 2 L. Decompression is recommended. 2. There is moderate to severe left hydroureteronephrosis. This is similar to today's CT scan. 3. Bilateral nephrolithiasis. 4. No hydronephrosis is seen on the right. Creatinine 0.9 on admission Urology consulted - continue Delatorre cath for at least 1 week, follow up as outpt, started pt on Flomax HTN: Chronic Takes Coreg and Lisinopril; continue monitor BP HLD: chronic stable Takes Rosuvastatin; continue Depression: Chronic stable Takes Lexapro; continue Disposition: PCP: Dr. Navarro Code Status: Full Code VTE Prophylaxis: Heparin gtt Admission and Anticipated Discharge Date Admission Date: June 20, 2023 Subjective Pt seen in follow up of b/l PE, urinary retention He is on iv heparin and delatorre catheter was placed in ED - seen by urology and plan for outpt follow up Currently sitting up in chair in NAD, he would like to be discharged Denies any chest pain or shortness of breath. Denies headache, or abd. pain. Discussed w/ urology - they will contact the pt on Saturday with upcoming appointment. Review of Systems Review of Systems: All systems reviewed & are unremarkable except as noted in Subjective Physical Exam Physical Exam: General: WD/WN M in NAD HEENT: head normocephalic, moist mucus membranes CV: S1/S2, (-) M/G/R, (-) edema Resp: Lungs CTA in all [place]. On RA GI: Abdomen S/NT/ND, Ax4 bowel sounds : + Delatorre catheter draining yellow urine Musculoskeletal: moves extremities Skin: (-) rashes , (-) erythema. Neuro: awake, alert oriented, answers simple questions appropriately, speech fluent, moves extremities Psych: euthymic mood Results & Data Results & Data Vital Signs (Past 12 Hours) Vital Signs Temp Pulse Pulse Resp BP Pulse Ox O2 Del Method 06/22/23 07:36 36.9 C 74 18 117/71 94 Room Air 06/22/23 05:59 70 06/22/23 03:46 36.8 C 78 16 92/54 L 94 Room Air 06/21/23 23:21 36.7 C 77 18 108/68 90 Room Air 06/21/23 21:59 72 06/21/23 20:04 36.7 C 75 16 105/51 L 95 Room Air Laboratory Results 06/22/23 06/21/23 06/21/23 Range/Units 06:00 21:29 15:34 WBC 8.75 (4.8-10.8) K/ul RBC 3.61 L (4.70-6.10) M/uL Hgb 11.5 L 11.3 L (14.0-18.0) g/dl Hct 34.8 L 34.2 L (42.0-52.0) % MCV 96.4 (80.0-100.0) fL MCH 31.9 (25.0-34.0) pg MCHC 33.0 (32.0-36.0) g/dL RDW Std Deviation 44.4 (36.4-46.3) fL RDW Coeff of George 12.6 (11.5-14.5) % Plt Count 301 (130-400) K/uL MPV 9.1 L (9.4-12.4) fL Immature Gran % (Auto) % Neut % (Auto) % Lymph % (Auto) % [place] % (Auto) % Eos % (Auto) % Baso % (Auto) % Neut # (Auto) (1.40-6.50) K/uL Lymph # (Auto) (1.20-3.40) K/uL [place] # (Auto) (0.11-0.59) K/uL Eos # (Auto) (0.00-0.50) K/uL Baso # (Auto) (0.00-0.20) K/uL Immature Gran # (Auto) (0.01-0.20) K/uL PT (9.0-12.0) Seconds INR (0.9-1.1) APTT (21-31) Seconds PTT Ratio Heparin Anti-Xa, Unfract 0.30 0.32 (0.3-0.7) IU/ml Sodium 136 (136-145) mmol/L Potassium 4.2 (3.5-5.1) mmol/L Chloride 103 (98-107) mmol/L Carbon Dioxide 27 (21-32) mmol/L Anion Gap 6 (3-11) BUN 19 (6-23) mg/dl Creatinine 0.94 (0.6-1.4) mg/dl Est Cr Clr Drug Dosing 60.0 ml/min Est GFR ( Amer) 90.3 ml/min Est GFR (Non-Af Amer) 77.9 ml/min BUN/Creatinine Ratio 20.2 H (10-20) Glucose 100 H (70-99(Fasting)) mg/dl Calcium 8.8 (8.6-10.3) mg/dl Phosphorus 3.0 (2.5-4.9) mg/dl Magnesium 2.0 (1.7-2.4) mg/dl Total Bilirubin (0.2-1.0) mg/dl AST (13-39) U/L ALT (7-52) U/L Alkaline Phosphatase (34-104) U/L Total Protein (6.0-8.3) gm/dl Albumin (3.4-5.0) gm/dl Globulin (2.5-4.0) gm/dl Albumin/Globulin Ratio (0.9-2) 06/21/23 Range/Units 08:33 WBC 11.11 H (4.8-10.8) K/ul RBC 4.01 L (4.70-6.10) M/uL Hgb 12.7 L (14.0-18.0) g/dl Hct 39.1 L (42.0-52.0) % MCV 97.5 (80.0-100.0) fL MCH 31.7 (25.0-34.0) pg MCHC 32.5 (32.0-36.0) g/dL RDW Std Deviation 45.8 (36.4-46.3) fL RDW Coeff of George 12.8 (11.5-14.5) % Plt Count 343 (130-400) K/uL MPV 9.2 L (9.4-12.4) fL Immature Gran % (Auto) 0.4 % Neut % (Auto) 71.9 % Lymph % (Auto) 13.0 % [place] % (Auto) 10.5 % Eos % (Auto) 3.8 % Baso % (Auto) 0.4 % Neut # (Auto) 8.00 H (1.40-6.50) K/uL Lymph # (Auto) 1.44 (1.20-3.40) K/uL [place] # (Auto) 1.17 H (0.11-0.59) K/uL Eos # (Auto) 0.42 (0.00-0.50) K/uL Baso # (Auto) 0.04 (0.00-0.20) K/uL Immature Gran # (Auto) 0.04 (0.01-0.20) K/uL PT 11.6 (9.0-12.0) Seconds INR 1.1 (0.9-1.1) APTT 39 H (21-31) Seconds PTT Ratio 1.4 Heparin Anti-Xa, Unfract (0.3-0.7) IU/ml Sodium 137 (136-145) mmol/L Potassium 4.0 (3.5-5.1) mmol/L Chloride 102 (98-107) mmol/L Carbon Dioxide 27 (21-32) mmol/L Anion Gap 8 (3-11) BUN 20 (6-23) mg/dl Creatinine 0.93 (0.6-1.4) mg/dl Est Cr Clr Drug Dosing 60.7 ml/min Est GFR ( Amer) 91.5 ml/min Est GFR (Non-Af Amer) 78.9 ml/min BUN/Creatinine Ratio 21.5 H (10-20) Glucose 102 H (70-99(Fasting)) mg/dl Calcium 9.5 (8.6-10.3) mg/dl Phosphorus 2.9 (2.5-4.9) mg/dl Magnesium 2.0 (1.7-2.4) mg/dl Total Bilirubin 0.7 (0.2-1.0) mg/dl AST 19 (13-39) U/L ALT 11 (7-52) U/L Alkaline Phosphatase 82 (34-104) U/L Total Protein 7.3 (6.0-8.3) gm/dl Albumin 4.1 (3.4-5.0) gm/dl Globulin 3.2 (2.5-4.0) gm/dl Albumin/Globulin Ratio 1.3 (0.9-2) Medications Administered Current Inpatient Medications Acetaminophen (Acetaminophen 325 Mg Tab) 650 mg PO Q4H PRN PRN Reason: Pain or Fever Stop: 07/20/23 16:56 Al Hydrox/Mg Hydrox/Simethicone (Aluminum/Magnesium Susp 30 Ml Udc) 15 ml PO Q4H PRN PRN Reason: Dyspepsia Stop: 07/20/23 16:56 Aspirin (Aspirin 81 Mg Ectab) 81 mg PO DAILY [facility] Stop: 07/21/23 08:59 Last Admin: 06/21/23 07:44 Dose: 81 mg Escitalopram Oxalate (Escitalopram Oxalate 10 Mg Tab) 5 mg PO DAILY [facility] [place] Stop: 07/21/23 08:59 Last Admin: 06/21/23 07:45 Dose: 5 mg Heparin Sodium/Dextrose (Heparin Sodium/Dextrose) 25,000 units in 500 mls @ 15 mls/hr IV .Q24H [facility]; Protocol Stop: 07/21/23 07:59 Last Titration: 06/22/23 07:07 Dose: 750 units/hr, 15 mls/hr Lisinopril (Lisinop[facility] 2.5 Mg Tab) [facility] [place]: 07/21/23 08:59 Last Admin: 06/21/23 07:44 Dose: 2.5 mg Magnesium Hydroxide (Magnesium Hydroxide Susp 30 Ml Udc) 30 ml PO Q12H PRN PRN Reason: Constipation Stop: 07/20/23 16:56 Ondansetron HCl (Ondansetron Inj 2 Mg/Ml 2 Ml Vial) 4 mg IV Q6H PRN PRN Reason: Nausea Stop: 07/20/23 16:56 Pantoprazole Sodium (Pantoprazole 40 Mg Tab) 40 mg PO DAILY [facility] [place] Stop: 07/21/23 08:59 Last Admin: 06/21/23 07:44 Dose: 40 mg Polyethylene Glycol (Polyethylene (Miralax) 17 Gm Pack) 17 gm PO DAILY PRN PRN Reason: Constipation Stop: 07/20/23 16:56 Rosuvastatin Calcium (Rosuvastatin Calcium 10 Mg Tab) 10 mg PO [facility] Stop: 07/21/23 08:59 Last Admin: 06/21/23 07:45 Dose: 10 mg Tamsulosin HCl (Tamsulosin Hcl 0.4 Mg Cap) 0.4 [facility] [place]: 07/21/23 08:59 Last Admin: 06/21/23 07:46 Dose: 0.4 mg
[2023-06-22] MEDS: PANTOprazole 40 MG TAB PO SCH (08:29)
[2023-06-22] MEDS: ESCITALOPRAM OXALATE 10 MG TAB PO SCH (08:30)
[2023-06-22] MEDS: lisinopril 2.5 MG TAB PO SCH (08:30)
[2023-06-22] MEDS: ASPIRIN 81 MG ECTAB PO SCH (08:30)
[2023-06-22] MEDS: ROSUVASTATIN CALCIUM 10 MG TAB PO SCH (08:30)
[2023-06-22] MEDS: TAMSULOSIN HCL 0.4 MG CAP PO SCH (08:31)
[2023-06-22] MEDS ORDERED: RIVAROXABAN 15 MG TAB PO SCH ×2 (12:15→12:45)
--- NOTE | 2023-06-22 12:26 | Discharge Summary ---
Date of Service June 22, 2023 Admission HPI Per Admitting Provider Mr. Lucas is a 78 year old male that presented to the ED today after being evaluated at [facility] yesterday for evaluation of his back pain and right flank pain that started after a gym workout on Saturday. He reports that Saturday morning into the evening he started to have discomfort with deep breathing. Yesterday morning he decided that he would present to urgent care. They did a D-dimer test that was elevated leading to a chest CT. Chest CT was performed today with results revealing bilateral PE. No previous DVT/PE in his history. Reports that 5 years ago he had intermittent left ocular visual loss for which he was evaluated through the emergency room. This occurred 6-7 times over 1 week. And he was diagnosed with TIA but no official CVA diagnosis. Also has a PFO that never closed putting him at higher risk of developing clots but he did have the PFO repaired and closed in 2019 in [place]. He was following with cardiology in [place] for some time but has transition care over to Dr. Titus with cardiology. In the ED, LE Doppler US was performed and negative for DVT. No leukocytosis, or TODD. ECG NSR with QTc 426. Troponin negative, urine negative. Chest CT performed in ED with results indicating Bilateral pulmonary emboli are seen without evidence of right heart strain or pulmonary infarct. Abdomen and pelvis CT revealed multiple bilateral pulmonary emboli, better depicted on the chest CT which will be reported separately, trace right pleural effusion, right lower lobe airspace opacity may reflect a pulmonary infarct or atelectasis. Markedly distended bladder. Moderate to severe left hydroureteronephrosis likely related to bladder distention. The findings suggest chronic bladder outlet obstruction related to an enlarged prostate. Bilateral nephrolithiasis. No ureteral calculi. No bowel obstruction. Pt denies VERDUZCO, dizziness, SOB, visual or auditory changes, abdominal pain or tenderness, recent falls or trauma, hematochezia, hematuria or appetite changes. Patient reports he does have intermittent cough but does not bring up the sputum to determine if any discoloration. Patient is AOx4 and in no acute distress. Patient is able to follow all commands, is euvolemic does not appear hypoxic and is not using any accessory muscle use for breathing. Hemodynamically stable without hypoxia and is on room air. Normotensive and without tachycardia. No recent surgeries, no recent travel, reports having COVID over 1 year ago, no recent gym injuries. Denies tobacco, alcohol, or recreational drug use including medical marijuana. Unprovoked bilateral PE's. sPESI risk factors are low. Will obtain ECHO to determine RV Dysfunction, obtain BNP, and start Heparin gtt. Likely will continue Xarelto 15 mg twice daily for 21 days followed by 20 mg once daily once bridged. Discussed continuation of PE treatment x 3 months with this being his initial clot. WIll obtain renal US given left hydroureteronephrosis Will obtain COVID, RSV, and adenovirus testing. Patient will be admitted for further evaluation and management. Please see A/P for further details. Admission Exam Per Admitting Provider Neuro: AAOx4, PERRLA, no aphagia, memory changes, CNII-XII grossly intact HEENT: head normocephalic, moist mucus membranes CV: S1/S2, (-) M/G/R, (-) edema, cap refill < 3 seconds Resp: Lungs CTA in all [place]. On RA GI: Abdomen S/NT/ND, Ax4 bowel sounds, (-) CVA tenderness Musculoskeletal: 5/5 B/L UE strength, 5/5 B/L LE strength. No gait disturbance; does not use any assist devices for ambulation Skin: (-) rashes , (-) erythema. Psych: euthymic mood Principal Diagnosis Bilateral pulmonary embolism Urinary retention Discharge Exam General: WD/WN M in NAD HEENT: head normocephalic, moist mucus membranes CV: S1/S2, (-) M/G/R, (-) edema Resp: Lungs CTA in all [place]. On RA GI: Abdomen S/NT/ND, Ax4 bowel sounds : + Hidalgo catheter draining yellow urine Musculoskeletal: moves extremities Skin: (-) rashes , (-) erythema. Neuro: awake, alert oriented, answers simple questions appropriately, speech fluent, moves extremities Psych: euthymic mood Discharge Data Allergies Allergy/AdvReac Type Severity Reaction Status Date / Time atorvastatin [From Lipitor] AdvReac Joints hurt Verified 06/20/23 17:13 [id number] Allergy Unknown Unknown Uncoded 10/29/19 15:51 Consultations 06/20/23 20:04 Consult Urology Routine Ordered Studies 06/20/23 14:50 US venous doppler LE BI Stat FINDINGS/IMPRESSION: Currently there is normal compressibility of the deep venous system from the common femoral vein through the proximal calf veins. No superficial venous thrombosis is identified. 06/20/23 18:27 US Renal Bladder [US renal/blad retro comp] Routine FINDINGS: Kidneys: The kidneys are normal in size and echotexture. The right kidney measures 9.6 x 5.8 x 4.7 cm and the left kidney measures 12.7 x 5.5 x 3.5 cm. There is moderate to severe left-sided hydroureteronephrosis. No hydronephrosis is seen on the right. Nonobstructing right renal calculi measure up to 6 mm. A 4 mm nonobstructing calculus is seen on the left. There is no sonographic evidence of contour deforming renal mass lesion. No perinephric fluid is identified. Bladder: The bladder is markedly distended, an the wall appears thickened/trabeculated. The bladder volume measures approximately 2 L. Ureteral jets were not seen. IMPRESSION: 1. Markedly distended bladder with an estimated volume of 2 L. Decompression is recommended. 2. There is moderate to severe left hydroureteronephrosis. This is similar to today's CT scan. 3. Bilateral nephrolithiasis. 4. No hydronephrosis is seen on the right. Hospital Course (1) Bilateral pulmonary embolism: (2) HLD (hyperlipidemia): (3) Adjustment disorder with depressed mood: (4) HTN (hypertension): (5) Nephrolithiasis: Plan Mr. Lucas is a 78 year old male that presented to the ED after being evaluated at [facility] for evaluation of his back pain and right flank pain that started after a gym workout on Saturday. Chest CT was performed today with results revealing bilateral PE. No previous DVT/PE in his history. Bilateral Pulmonary Embolism: Acute LE Doppler US negative for DVT. Chest CT Bilateral pulmonary emboli without evidence of right heart strain or pulmonary infarct. Abdomen and pelvis CT revealed multiple bilateral pulmonary emboli, trace right pleural effusion, right lower lobe airspace opacity may reflect a pulmonary infarct or atelectasis. Markedly distended bladder. No leukocytosis, or TODD. ECG NSR with QTc 426. Troponin negative urine negative. BNP 68 sPESI risk stratification low: Obtained ECHO to determine RV dysfunction -LV is normal in size. There is borderline concentric LVH. LV wall motion is normal. EF 55 to 60%. LA is mildly dilated. RA size is normal. Aortic valve sclerosis mild, with no significant aortic valvular stenosis. Trace aortic regurg. There is mild to moderate tricuspid regurg. Doppler findings do not suggest pulmonary hypertension. RV is normal in size and function. PO Xarelto started in ED; started low dose no bolus heparin gtt on admission; will put pt back on Xarelto on discharge (15 mg PO BID x21 days followed by 20 mg daily x 3 months) Pt will require further evaluation for cause of PE; need to consider malignancy Urinary retention acute Abdomen/Pelvic CT: Moderate to severe left hydroureteronephrosis likely related to bladder distention. The findings suggest chronic bladder outlet obstruction related to an enlarged prostate. Bilateral nephrolithiasis. No ureteral calculi. No bowel obstruction. Obtained renal US given findings outlined above - 1. Markedly distended bladder with an estimated volume of 2 L. Decompression is recommended. 2. There is moderate to severe left hydroureteronephrosis. This is similar to today's CT scan. 3. Bilateral nephrolithiasis. 4. No hydronephrosis is seen on the right. Creatinine 0.9 on admission Urology consulted - continue Hidalgo cath for at least 1 week, follow up as outpt, started pt on Flomax HTN: Chronic Takes Coreg and Lisinopril; continue monitor BP HLD: chronic stable Takes Rosuvastatin; continue Depression: Chronic stable Takes Lexapro; continue Total Time Total Time Spent Total Time Spent (In Minutes): 40 Discharge Plan Discharge Items Patient Disposition: Home - Self-Care Reason For Visit: BL PE Discharge Diagnosis: Bilateral pulmonary embolism Urinary retention Activity: Per Instructions section Non-emergency contact: Primary Care Provider Call non-emergency contact if: you have any medication questions and your symptoms worsen Follow-up/Referrals: Pelon Navarro MD [Primary Care Provider] - Diet: Heart Healthy Diet Texture: Easy to Chew Addtl Attending Provider Instructions: Follow up with primary care doctor and urology. Follow up with primary care doctor within 1 week. You were started on medication - Flomax - take it daily as prescribed. You were also started on blood thinner- xarelto - take 15 mg twice a day for first 21 days, then take 20 mg daily. You will be contacted on Saturday by urology office about your upcoming appointment. Pending Studies at Discharge: No Stand-Alone Forms: [facility], Smoking Cessation Medications and DC Order Prescriptions: New tamsulosin 0.4 mg Capsule 0.4 mg PO QAM Qty: 30 0RF Xarelto DVT-PE Treat 30d Start 15 mg (42)- 20 mg (9) tablets,dose pack See Rx Instructions .ROUTE .COMPLEX Qty: 51 0RF Rx Instructions: take one-15 mg tablet twice daily for 21 days, then one-20 mg tablet once daily; must take with meal/food Continued lisinopril 2.5 mg tablet 2.5 mg PO QAM coenzyme Q10 [CoQ-10] 100 mg Capsule 100 mg PO DAILY omega [id number] oil [Fish Oil] 1,000 mg (120 mg-180 mg) Capsule 1 cap PO DAILY Rx Instructions: UNKNOWN STRENGTH aspirin 81 mg Tablet,Delayed Release (Dr/Ec) 81 mg PO DAILY Qty: 30 3RF multivitamin Tablet 1 tab PO DAILY fexofenadine [Francoise] 180 mg Tablet 180 mg PO DAILY PRN (Reason: allergies) acetaminophen [Tylenol Extra Strength] 500 mg Tablet 1,000 mg PO Q6H PRN (Reason: Pain) esomeprazole magnesium [Nexium] 20 mg Capsule,Delayed Release(Dr/Ec) 20 mg PO DAILY Saline Nasal Mist 0.65 % Aerosol,[place] 2 spray INTRANASAL DIRECTED PRN (Reason: Nasal Congestion) rosuvastatin 10 mg tablet 10 mg PO QAM magnesium oxide 400 mg magnesium Tablet 400 mg PO DAILY escitalopram oxalate 10 mg tablet 5 mg PO DAILY Discharge Orders: Discharge Order (Routine); Ordered 06/22/23 Ordered By: Octavio Forbes Admission Data Admit Date/Time: 06/20/23 16:57 Attending Provider: Octavio Forbes Admit Provider: Melonie Gallegos Primary Care Provider: Pelon Navarro Other Providers: Eddie Ahumada; Melonie Gallegos
[2023-06-22] MEDS ORDERED: APIXABAN 5 MG TABLET PO SCH (14:30)
== END 2023-06-22 16:50 | disposition home or self-care (01) | DRG 176 ==
LOC: ED 13:29 → SUATTDRO 16:57 → EDINP 16:57 → 2W 19:20

== ENCOUNTER 2023-12-23 12:58 | Inpatient (IN) ==
--- NOTE | 2023-12-23 13:21 | ED Triage Note ---
Date of Service December 23, 2023 Provider in Triage Author: Erica Segura History of Present Illness This patient was briefly evaluated while in triage. An abbreviated physical exam was performed. This patient is a 78-year-old Male who presents to the ED for evaluation of dizziness upon waking with lightheadedness. He states he went to the gym this morning and felt chilled. He saw his PCP who did an EKG and sent him here for eval of a UTI. He denies neurological deficits, NIHSS in triage 0. Physical Exam CONSTITUTIONAL: in no acute pain or distress, resting comfortably SKIN: pink, warm, dry CARDIAC: regular rate and rhythm RESPIRATORY: in no respiratory distress, lungs clear to auscultation ABDOMEN: no TTP MSK: 5/5 strength throughout NEURO: no neuro deficits, alert and oriented x 3 Initial orders for labs and / or imaging were placed and patient was placed in the waiting area until a bed is available. Please see further documentation for the full ED course. MDM / Impression Impression Impression: Severe sepsis, Acute UTI (urinary tract infection)
--- NOTE | 2023-12-23 13:33 | Emergency Department Note ---
Impression & Plan Severe sepsis, Acute UTI (urinary tract infection) ED Provider Note Name: HOLLY LUO Age: 78 Sex: Male Arrives Via: Walk-In Informant: Patient ED Provider: Eddie Boyer MD Chief Complaint: Weakness Impression: As per impressions above Medical Decision Making: Very pleasant 78-year-old gentleman who straight caths due to prostate enlargement arrives for evaluation of worsening illness for the last 4 days. Sent to ED from [facility] due to fevers urinary symptoms and weakness. Patient is hypotensive on arrival. Septic workup initiated. Patient is awake alert oriented NIH is 0. Mild headache I suspect this secondary to systemic symptoms and given no neurodeficits or blood thinner use would hold off on CT of the head at this time. He has known C. difficile due to antibiotic use a few weeks ago. He has some abdominal discomfort on exam is soft nontender. Without tenderness palpation would hold off on CT imaging of the abdomen and pelvis at this time and proceed with management of his severe sepsis. Initial blood pressure improved with fluids. He did get blood cultures lactic acid. He was empirically given IV Rocephin for coverage of previous UTI and urinalysis is concerning for UTI. He was also given a dose of vancomycin given known current C. difficile management. Seems unlikely toxic megacolon based on examination.: Patient feels much better after IV fluids. Reviewed case with hospitalist will bring in for further management. Triage/Nursing Notes reviewed by Me External Chart Review by me: Reviewed chart from [facility] on 12.23.23. Patient was febrile at that time. Differential:Infection, dehydration, metabolic abnormality, hypo/hyperglycemia, electrolyte disturbance, anemia, hypoxia, cardiac sources, intracerebral event, toxicologic, neurologic, as well as other pathologies. Vital Signs: reviewed and remarkable for hypotension Interventions: Normal saline bolus 1 L IV x 2, Rocephin 2 g IV, vancomycin 125 mg p.o., Tylenol p.o. Labs:ED labs Reviewed by me and remarkable for elevated white blood cell count, normal lactic acid Imagin view chest x-ray as per my interpretation no infiltrate or effusion appreciated. EKG:As per my interpretation. Indication sepsis and weakness. Normal sinus rhythm at 82 bpm QTc of 432. There is no ectopy nor ischemia. When compared to EKG of June 20, 2023 there is no significant change. Cardiac/Tele Monitoring: Cardiac Monitoring: An Order was placed for continuous cardiac monitoring. The monitor shows a rate of 70 with a normal sinus rhythm. Consults:[facility]ist ([facility]) who will come evaluate the patient for hospitalization. Plan: Disposition:Hospitalization. Condition: Fair History of Present Illness: 78-year-old gentleman arrives for evaluation of illness. Patient notes 4 days worsening illness. Associate with lower abdominal cramping and feeling of urinary symptoms. He was diagnosed with a UTI according to him at his urologist office 4 days ago but was not started on an antibiotic as awaiting cultures. Patient states that he gets a bit lightheaded with standing. Associated with mild headache. Denies any specific flank pain. No fevers that he recalls but he states at urgent care today had a fever. He was advised to come to ER from urgent care for further evaluation. Patient denies any falls, trauma, injuries. Patient has a history of BPH and has to use catheters. 3 weeks ago patient was diagnosed with a UTI. He started on an antibiotic and then developed diarrhea. He was subsequently diagnosed with C. difficile. He has been on vancomycin for this. States he continues to have some diarrhea. He has been trying to keep well-hydrated at home Past Medical History: BPH with obstruction, nephrolithiasis, headaches, depression, hyperlipidemia, PEs Home Medications:See Below Allergies: Adhesive, Lipitor Vitals:Blood Pressure: 91/56, Pulse 94, RR 18, T 37.4C, O2 95% on RA Physical Exam: GENERAL: Patient is tired/dehydrated appearing and in mild distress. RESPIRATORY: No dyspnea. Clear to auscultation and equal bilaterally. CARDIOVASCULAR: Regular rate and rhythm.No murmur appreciated. GASTROINTESTINAL: Abdomen soft, non-tender, no peritonitis. EXTREMITIES: Normal motion all extremities, no cyanosis, no edema. NEUROLOGIC: Alert and oriented. No focal neurologic deficits appreciated SKIN: No rash, no jaundice, no diaphoresis. PSYCH: Appropriate GCS: 15 ED Course: Times/Reassessments: Patient blood pressure did respond to initial liter of fluid though will give second liter for full sepsis management and he still appears bit dry. Repeat volume status examination at 2:30 PM. A sepsis reevaluation was done at this time. Completed by me. Patient is awake alert oriented blood pressure is 110/57. Heart rate is 85 he has good cap refill he is in no distress breathing at 20 times a minute and O2 sat 97% on room air. Critical Care: I have personally spent 40 minutes of critical care time in the direct management of this patient. Severe Sepsis secondary to UTI with hypotension. This was a life/limb threatening event. This 40 minutes is in excess of all separately billable procedures. Eddie Boyer MD Past Med/Surg History Problem List (Updated 12/23/23 @ 15:00 by Eddie Boyer MD) Acute UTI (urinary tract infection) (Acute) Severe sepsis (Acute) BPH with obstruction/lower urinary tract symptoms (11/10/18) Encounter for pre-operative examination Urinary retention Nephrolithiasis TTH (tension-type headache) Transient monocular blindness Adjustment disorder with depressed mood DVT prophylaxis Amaurosis fugax of left eye (Acute) Bilateral pulmonary embolism (Acute ~06/19/23) [facility], on tita, Dr. Tacho LOREDO [employer], Vane LOREDO HLD (hyperlipidemia) Medical History PFO (patent foramen ovale) (03/01/20) Hyperlipidemia (08/10/14) History of transient ischemic attack (TIA) (01/03/22) GERD (gastroesophageal reflux disease) (09/29/14) Bilateral pulmonary embolism (07/03/23) Adjustment disorder with depressed mood (10/20/07) Pure hypercholesterolemia (07/25/22) Nonrheumatic aortic valve insufficiency (07/03/23) Moderate mitral regurgitation (11/13/19) Anxiety state (10/20/07) PFO (patent foramen ovale) History of TIA (transient ischemic attack) Urinary retention GERD (gastroesophageal reflux disease) Enlarged prostate History of anxiety Hx of renal calculi (~1969) UTI (urinary tract infection) (~08/2023) Nonischemic cardiomyopathy Surgical History Hx of closure of congenital atrial septal defect by percutaneous transcatheter technique (~2019) History of loop recorder (~2018) Hx of tonsillectomy S/P appy Family History Father , age 78 Coronary heart disease Social History Smoking Status: Never smoker Second Hand Exposure: No; Do You Dip or Chew Tobacco: No; Hx Alcohol Use: No Hx Substance Use: No Preferred Language: Burmese Communication Ability: Effective 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: No Beliefs That Will Affect Care: None marital status: Single Current Living Situation: Family Current Living Situation Comment: Sister and [id number] live in his home current occupational status: employed 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 Feels Safe at Home: Yes Physical Activity Frequency: 5-6 Times per Week Assistive Devices: Glasses Allergies Allergies Allergy/AdvReac Type Severity Reaction Status Date / Time adhesive AdvReac Mild Rash Verified 12/23/23 12:30 atorvastatin [From Lipitor] AdvReac Mild Joints hurt Verified 12/23/23 12:30 Home Meds Home Medications Medication Instructions Recorded Confirmed escitalopram oxalate 10 mg tablet 5 mg PO QAM 06/20/23 12/23/23 esomeprazole magnesium 20 mg 20 mg PO DAILY Heartburn 06/20/23 12/23/23 capsule,delayed release (Nexium) magnesium oxide 400 mg PO QAM 06/20/23 12/23/23 rosuvastatin 10 mg tablet 10 mg PO QAM 06/20/23 12/23/23 sodium chloride 0.65 % nasal spray 2 spray intranasal DIRECTED PRN 06/20/23 12/23/23 aerosol (Saline Nasal Mist) Nasal Congestion aspirin 81 mg tablet,delayed 81 mg PO QAM 09/10/23 12/23/23 release apixaban 5 mg tablet (Eliquis) 5 mg PO AMHS 10/06/23 12/23/23 multivitamin with minerals 1 tab PO DAILY 10/06/23 12/23/23 (Multiple Vitamin-Minerals tablet) Previous Rx's Medication Instructions Recorded tamsulosin 0.4 mg capsule 0.4 mg PO QAM #30 caps 06/22/23 Saccharomyces boulardii 250 mg 250 mg PO BID #20 caps 10/06/23 capsule (Florastor) amoxicillin 500 mg-potassium 1 tab PO BID #14 tabs 11/13/23 clavulanate 125 mg tablet sulfamethoxazole 800 1 tab PO BID #20 tabs 12/02/23 mg-trimethoprim 160 mg tablet (Bactrim DS) Results & Data (ED) Vital Signs Vital Signs - 24 hr 12/23/23 13:17 12/23/23 13:40 12/23/23 14:21 Temperature 37.4 C Temperature Source Oral Pulse Rate 94 H 82 Pulse Rate [Apical] Pulse Rhythm Regular Pulse Strength Normal Respiratory Rate 18 16 Respiratory Effort / Characteristics Non-Labored Spontaneous Respiratory Depth Normal Respiratory Pattern Regular Blood Pressure 91/56 L Blood Pressure [Left Arm] Blood Pressure Mean 67 Blood Pressure Mean [Left Arm] Blood Pressure Position Sitting Pulse Oximetry 95 Oxygen Delivery Method Room Air Oxygen Flow Rate Sepsis Recent Fever Within 48 Hours No Sepsis New/Unexplained Change in Mental Status N/A Sepsis Action Taken by Nursing No Action Required 12/23/23 14:22 12/23/23 14:22 Temperature Temperature Source Pulse Rate Pulse Rate [Apical] 85 Pulse Rhythm Pulse Strength Respiratory Rate 20 Respiratory Effort / Characteristics Non-Labored Spontaneous Respiratory Depth Normal Respiratory Pattern Blood Pressure Blood Pressure [Left Arm] 103/59 L Blood Pressure Mean Blood Pressure Mean [Left Arm] 73 Blood Pressure Position Pulse Oximetry 97 Oxygen Delivery Method Room Air Room Air Oxygen Flow Rate 97 Sepsis Recent Fever Within 48 Hours Sepsis New/Unexplained Change in Mental Status Sepsis Action Taken by Nursing Laboratory Data 12/23/23 13:45 12/23/23 13:45 Lab Results 12/23/23 12/23/23 Range/Units 13:45 Unknown WBC 20.09 H (4.8-10.8) K/ul RBC 3.64 L (4.70-6.10) M/uL Hgb 11.2 L (14.0-18.0) g/dl Hct 34.5 L (42.0-52.0) % MCV 94.8 (80.0-100.0) fL MCH 30.8 (25.0-34.0) pg MCHC 32.5 (32.0-36.0) g/dL RDW Std Deviation 46.5 H (36.4-46.3) fL RDW Coeff of George 13.5 (11.5-14.5) % Plt Count 341 (130-400) K/uL MPV 9.2 L (9.4-12.4) fL Immature Gran % (Auto) 0.5 % Neut % (Auto) 87.5 % Lymph % (Auto) 3.2 % Armstrong % (Auto) 8.3 % Eos % (Auto) 0.2 % Baso % (Auto) 0.3 % Neut # (Auto) 17.57 H (1.40-6.50) K/uL Lymph # (Auto) 0.65 L (1.20-3.40) K/uL Armstrong # (Auto) 1.66 H (0.11-0.59) K/uL Eos # (Auto) 0.04 (0.00-0.50) K/uL Baso # (Auto) 0.06 (0.00-0.20) K/uL Immature Gran # (Auto) 0.11 (0.01-0.20) K/uL PT 11.6 (9.0-12.0) Seconds INR 1.1 (0.9-1.1) APTT 30 (21-31) Seconds PTT Ratio 1.1 Sodium 133 L (136-145) mmol/L Potassium 3.7 (3.5-5.1) mmol/L Chloride 101 (98-107) mmol/L Carbon Dioxide 25 (21-32) mmol/L Anion Gap 7 (3-11) BUN 18 (6-23) mg/dl Creatinine 0.99 (0.6-1.4) mg/dl Est Cr Clr Drug Dosing 54.4 ml/min Est GFR ( Amer) 84.8 ml/min Est GFR (Non-Af Amer) 73.2 ml/min BUN/Creatinine Ratio 18.2 (10-20) Glucose 104 H (70-99(Fasting)) mg/dl Lactate 1.1 (0.4-2.0) mmol/L Calcium 8.9 (8.6-10.3) mg/dl Total Bilirubin 0.5 (0.2-1.0) mg/dl AST 21 (13-39) U/L ALT 14 (7-52) U/L Alkaline Phosphatase 67 (34-104) U/L Troponin I High Sens 7.3 (0-20) pg/ml Total Protein 6.9 (6.0-8.3) gm/dl Albumin 3.9 (3.4-5.0) gm/dl Globulin 3.0 (2.5-4.0) gm/dl Albumin/Globulin Ratio 1.3 (0.9-2) Procalcitonin 0.11 (0-0.5) ng/ml Urine Color Dark Yellow Urine Appearance Turbid A (Clear) Urine pH 7.5 (4.5-7.5) Ur Specific [place] 1.013 (1.000-1.030) Urine Protein 2+ H (Negative) Urine Glucose (UA) Negative (Negative) Urine Ketones 1+ H (Negative) Urine Blood 3+ H (Negative) Urine Nitrite Positive A (Negative) Urine Bilirubin Negative (Negative) Urine Urobilinogen Negative (Negative) Ur Leukocyte Esterase 3+ H (Negative) Urine WBC (Auto) >50 H (0-5) /hpf Urine RBC (Auto) >20 H (0-2) /hpf U Hyaline Cast (Auto) 6-10 H (0-2) /lpf U Epithel Cells (Auto) 0-2 (0-2) /hpf Urine Bacteria (Auto) 3+ H (None Seen) Administered Medications Sodium Chloride (Nss) 1,000 mls @ 999 mls/hr IV .Q1H1M ONE Stop: 12/23/23 15:22 Last Admin: 12/23/23 14:37 Dose: 999 mls/hr Documented By: CARI Discontinued Medications Acetaminophen (Acetaminophen 500 Mg Tab) 1,000 mg PO NOW STA Stop: 12/23/23 13:32 Last Admin: 12/23/23 13:58 Dose: 1,000 mg Documented By: DOLLY Mendoza Syrup (Mendoza Syrup 5 Ml Udp) 5 ml PO ONE STA Stop: 12/23/23 14:24 Last Admin: 12/23/23 14:43 Dose: 5 ml Documented By: CARI Sodium Chloride (Nss) 1,000 mls @ 999 mls/hr IV .Q1H1M ONE Stop: 12/23/23 14:30 Last Admin: 12/23/23 13:58 Dose: 999 mls/hr Documented By: DOLLY Ceftriaxone Sodium (Rocephin) 2,000 mg in 50 mls @ 100 mls/hr IV NOW STA Stop: 12/23/23 14:51 Last Admin: 12/23/23 14:37 Dose: 100 mls/hr Documented By: CARI Vancomycin HCl (Vancomycin Hcl 125 Mg/2.5ml Soln) 125 mg PO ONE STA Stop: 12/23/23 14:24 Last Admin: 12/23/23 14:43 Dose: 125 mg Documented By: HS Imaging Data Radiologist's Impression: Chest X-Ray 12/23/23 13:21 XR chest 1V portable CLINICAL HISTORY: dizziness TECHNIQUE: Single frontal radiograph of the chest was obtained. Comparison: Comparison is made to chest radiograph 10/13/2007 FINDINGS: Loop recorder is seen. The cardiomediastinal silhouette is normal. The lungs are clear. No evidence of pleural effusion or pneumothorax. IMPRESSION: No acute chest disease. ACT 112: Negative or not required by law. Electronically signed by: Marciano Madrigal M.D. 12/23/2023 2:45 PM Discharge Plan Visit Data Chief Complaint: Dizziness Stated Complaint: REF BY DOC,DIZZY,DISORIENTED ED Provider: Eddie Boyer Discharge Problem: Severe sepsis, Acute UTI (urinary tract infection) Forms Stand Alone Forms: [facility] [employer] Prescriptions Prescriptions: No Action amoxicillin-pot clavulanate 500-125 mg tablet 1 tab PO BID Qty: 14 0RF sulfamethoxazole-trimethoprim [Bactrim DS] 800-160 mg tablet 1 tab PO BID Qty: 20 0RF esomeprazole magnesium [Nexium] 20 mg Capsule,Delayed Release(Dr/Ec) 20 mg PO DAILY Saline Nasal Mist 0.65 % Aerosol,[place] 2 spray INTRANASAL DIRECTED PRN (Reason: Nasal Congestion) rosuvastatin 10 mg tablet 10 mg PO QAM magnesium oxide 400 mg magnesium Tablet 400 mg PO QAM escitalopram oxalate 10 mg tablet 5 mg PO QAM tamsulosin 0.4 mg Capsule 0.4 mg PO QAM Qty: 30 0RF aspirin 81 mg tablet,delayed release (DR/EC) 81 mg PO QAM Eliquis 5 mg tablet 5 mg PO AMHS Rx Instructions: take 10 mg bid for 7 days then 5 mg bid Multiple Vitamin-Minerals Tablet 1 tab PO DAILY Saccharomyces boulardii [Florastor] 250 mg capsule 250 mg PO BID Qty: 20 0RF Rx Instructions: swallow whole Referrals Referrals: Pelon Navarro MD [Primary Care Provider] -
[2023-12-23] MEDS: SODIUM CHLORIDE 0.9% 1,000 ML IV ONE ×2 (13:58→14:37)
[2023-12-23] MEDS: ACETAMINOPHEN 500 MG TAB PO STA (13:58)
[2023-12-23 14:16] LABS: Basophils # (auto) 0.06 K/uL (0.00-0.20); Basophils % (auto) 0.3 %; Eosinophils # (auto) 0.04 K/uL (0.00-0.50); Eosinophils % (auto) 0.2 %; Hematocrit (blood only) 34.5 % (42.0-52.0); Hemoglobin 11.2 g/dl (14.0-18.0); Immature Granulocytes # (auto) 0.11 K/uL (0.01-0.20); Immature Granulocytes % (auto) 0.5 %; Lymphocytes # (auto) 0.65 K/uL (1.20-3.40); Lymphocytes % (auto) 3.2 %; Mean Corpuscular Hemoglobin 30.8 pg (25.0-34.0); Mean Corpuscular Hgb Conc 32.5 g/dL (32.0-36.0); Mean Corpuscular Volume 94.8 fL (80.0-100.0); Mean Platelet Volume 9.2 fL (9.4-12.4); Monocytes # (auto) 1.66 K/uL (0.11-0.59); Monocytes % (auto) 8.3 %; Neutrophils # (auto) 17.57 K/uL (1.40-6.50); Neutrophils % (auto) 87.5 %; Platelet Count 341 K/uL (130-400); RDW Coefficient of Variation 13.5 % (11.5-14.5); RDW Standard Deviation 46.5 fL (36.4-46.3); Red Blood Count 3.64 M/uL (4.70-6.10); White Blood Count 20.09 K/ul (4.8-10.8)
[2023-12-23 14:28] LABS: Albumin Globulin Ratio 1.3 (0.9-2); Albumin Level 3.9 gm/dl (3.4-5.0); BUN Creatinine Ratio 18.2 (10-20); Bilirubin,Total 0.5 mg/dl (0.2-1.0); Calcium 8.9 mg/dl (8.6-10.3); Creatinine Clr Calc Pharmacy 54.4 ml/min; Est GFR (African American) 84.8 ml/min; Est GFR (Non-African American) 73.2 ml/min; Potassium 3.7 mmol/L (3.5-5.1); Total Protein 6.9 gm/dl (6.0-8.3)
[2023-12-23 14:31] LABS: Troponin I High Sensitivity 7.3 pg/ml (0-20)
[2023-12-23 14:36] LABS: INR 1.1 (0.9-1.1); Partial Thromboplastin Ratio 1.1; Partial Thromboplastin Time 30 Seconds (21-31); Prothrombin Time 11.6 Seconds (9.0-12.0)
[2023-12-23] MEDS: cefTRIAXone SODIUM 2,000 MG/50 ML BAG IV STA (14:37)
[2023-12-23] MEDS: VANCOMYCIN HCL 125 MG/2.5ML SOLN PO STA (14:43)
[2023-12-23] MEDS: CHERRY SYRUP 5 ML UDP PO STA (14:43)
[2023-12-23 14:47] LABS: Appearance Urine Turbid (Clear); Bacteria Urine Automated 3+ (None Seen); Bilirubin Urine Negative (Negative); Blood Urine 3+ (Negative); Epithelial Cell Urine Auto 0-2 /hpf (0-2); Glucose Urine UA Negative (Negative); Ketones Urine 1+ (Negative); Leukocyte Esterase Urine 3+ (Negative); Nitrite Urine Positive (Negative); Protein Urine 2+ (Negative); RBC Urine Automated >20 /hpf (0-2); Specific Gravity Urine 1.013 (1.000-1.030); Urobilinogen Urine Negative (Negative); WBC Urine Automated >50 /hpf (0-5); pH Urine 7.5 (4.5-7.5)
--- NOTE | 2023-12-23 14:47 | XRay Report ---
XR chest 1V portable CLINICAL HISTORY: dizziness TECHNIQUE: Single frontal radiograph of the chest was obtained. Comparison: Comparison is made to chest radiograph 10/13/2007 FINDINGS: Loop recorder is seen. The cardiomediastinal silhouette is normal. The lungs are clear. No evidence o f pleural effusion or pneumothorax. IMPRESSION: No acute chest disease. ACT 112: Negative or not required by law. Electronically signed by: Marciano Madrigal M.D. 12/23/2023 2:45 PM
[2023-12-23 14:48] LABS: Color Urine Dark Yellow
--- NOTE | 2023-12-23 15:13 | History & Physical Report ---
Date of Service December 23, 2023 Assessment & Plan (1) Sepsis: Plan: This is a 78 y/o male with history of bilateral PE in Jun 2023, nonischemic cardiomyopathy, nephrolithiasis, prior TIA, GERD, BPH w/ LUTS s/p TURP, and other history as outlined below who presents to the ED today from urgent care after he was found to be febrile with orthostasis. Pt has a complex urologic history as outlined in the HPI with multiple courses of antibiotics in the last six months for infection. He has continued to require self-catheterization multiple times per day due to persistent urinary retention. Clinical presentation consistent with sepsis with likely source of infection a recurrent UTI. No evidence of end-organ dysfunction. Lactate was normal. Initial hypotension improved with fluid resuscitation. Pt reports his baseline BP is in the 110s systolic. - Admit to PCU - Broad-spectrum antibiotic coverage with cefepime and vancomycin in view of multiple organisms on recent urine cultures - consult infectious disease to assist with antibiotic management - Blood and urine cultures pending - Consult urology due to complicated UTI, ongoing urinary retention - Hidalgo catheter ordered due to ongoing requirement for self-cath and increased risk of infection - Pt receiving second liter of IVF - will hold after this finishes and monitor BP - Diet as tolerated - Labs in the AM - CBC, BMP (2) Acute UTI (urinary tract infection): Plan: see plan for #1 (3) C. difficile colitis: Plan: Continue oral vancomycin - will need to discuss length of treatment since pt continues on antibiotics for UTI as well Isolation precautions (4) BPH with obstruction/lower urinary tract symptoms: Plan: Chronic, ongoing issues with retention s/p TURP Continue tamsulosin Urology consult (5) Bilateral pulmonary embolism: Plan: Jun 2023 - on chronic AC Continue apixaban BID (6) GERD (gastroesophageal reflux disease): Plan: Chronic, stable Continue PPI therapy Plan Pt seen and reviewed with collaborating physician, Dr. De Leon. Plan of care discussed and as outlined above. Code Status: full code DVT Prophylaxis: on apixaban Dispo: PCU Alberto Solis PA-C History of Present Illness Chief Complaint: fever, dizziness Primary Care Provider: Pelon Navarro MD This is a 78 y/o male with history of bilateral PE in Jun 2023, nonischemic cardiomyopathy, nephrolithiasis, prior TIA, GERD, BPH w/ LUTS s/p TURP, and other history as outlined below who presents to the ED today from urgent care after he was found to be febrile with orthostasis. Pt reports that he woke up around 4 am today with a headache, chills, malaise. [place] more weak and tired. Yesterday and today, he noticed that his urine was cloudy, thicker than usual. He presented to urgent care today but was referred to the ED for further evaluation. Pt has been self-catheterizing since June but notes that he has been able to pass some urine on his own recently, which is new for him. He passed a few small blood clots in his urine this morning. Denies penile irritation or bleeding. Pt notes that he developed diarrhea after antibiotics in November (about 10-14 days ago). Outpatient testing for C. diff was positive so started on oral vancomycin, which he reports he has taken for about the last five days. Had associated abdominal cramping and discomfort initially which is improving on the vancomycin. Currently the diarrhea is improving with two soft to semi-formed stools per day. Baseline BP in the 110s/50s. Recent urologic history is significant for: Cystoscopy 08/07/23 - significantly enlarged prostate w/ prominent intravesical protrusion, bladder heavily trabeculated with capacious bladder, no tumors or stones. TURP 09/26/23 - had some posterior mucosal splinting during the procedure, catheter left in place x 10 days. Post-op urinary retention so has continued CIC and 4x/day. Urine culture 11/11/23 - grew Klebsiella oxytoca, E. coli. Treated with Augmentin. Repeat cystoscopy 11/27/23 - s/p TURP, bladder neck open w/ mild prostatic regrowth, trabeculated bladder, snowstorm appearance of the urine (aspirated). Urine culture 11/29/23 - grew E. coli. Treated with Bactrim. Saw urology on 12/19/23 for UDS testing but urine dip in office concerning for infection so procedure deferred. Allergies Allergy/AdvReac Type Severity Reaction Status Date / Time latex Allergy Rash Verified 12/23/23 20:22 adhesive AdvReac Mild Rash Verified 12/23/23 12:30 atorvastatin [From Lipitor] AdvReac Mild Joints hurt Verified 12/23/23 12:30 Home Medications Medication Instructions Recorded Confirmed Type escitalopram oxalate 10 mg tablet 5 mg PO QAM 06/20/23 12/23/23 History esomeprazole magnesium 20 mg 20 mg PO DAILY Heartburn 06/20/23 12/23/23 History capsule,delayed release (Nexium) magnesium oxide 400 mg PO QAM 06/20/23 12/23/23 History rosuvastatin 10 mg tablet 10 mg PO QAM 06/20/23 12/23/23 History sodium chloride 0.65 % nasal spray 2 spray intranasal DIRECTED PRN 06/20/23 12/23/23 History aerosol (Saline Nasal Mist) Nasal Congestion tamsulosin 0.4 mg capsule 0.4 mg PO QAM #30 caps 06/22/23 12/23/23 Rx apixaban 5 mg tablet (Eliquis) 5 mg PO AMHS 10/06/23 12/23/23 History multivitamin with minerals 1 tab PO DAILY 10/06/23 12/23/23 History (Multiple Vitamin-Minerals tablet) Past Med/Surg History Problem List (Updated 12/23/23 @ 20:01 by Lily Solis PA-C) C. difficile colitis Sepsis GERD (gastroesophageal reflux disease) (09/29/14) Acute UTI (urinary tract infection) (Acute) Severe sepsis (Acute) BPH with obstruction/lower urinary tract symptoms (11/10/18) Urinary retention Nephrolithiasis Adjustment disorder with depressed mood Bilateral pulmonary embolism (Acute ~06/19/23) [facility], on tita, Dr. Tacho [employer] Att[employer], [place] HLD (hyperlipidemia) Medical History (Updated 12/23/23 @ 20:01 by Lily Solis PA-C) Amaurosis fugax of left eye PFO (patent foramen ovale) (03/01/20) Hyperlipidemia (08/10/14) History of transient ischemic attack (TIA) (01/03/22) Bilateral pulmonary embolism (07/03/23) Adjustment disorder with depressed mood (10/20/07) Pure hypercholesterolemia (07/25/22) Nonrheumatic aortic valve insufficiency (07/03/23) Moderate mitral regurgitation (11/13/19) Anxiety state (10/20/07) PFO (patent foramen ovale) History- s/p percutaneous closure November 2020 History of TIA (transient ischemic attack) Around 2020 per records (amaurosis fugax/transient left eye visual loss per records) Urinary retention self cath prn GERD (gastroesophageal reflux disease) Enlarged prostate History of anxiety Hx of renal calculi (~1969) UTI (urinary tract infection) (~08/2023) current ampicillin start 09/09/23 Nonischemic cardiomyopathy Idiopathicdiagnosed 2012no obstructive CAD with return to normal LV function Surgical History Hx of closure of congenital atrial septal defect by percutaneous transcatheter technique (~2019) Amplatzer Pfo Occluder, [facility] [place] History of loop recorder (~2018) checked monthly, follows with Dr. Titus at [facility], no issues Hx of tonsillectomy S/P appy Family History Father , age 78 Coronary heart disease Social History Smoking Status: Former smoker Cigarettes Per Day: 4; Smoking End Date: 50 years ago; Second Hand Exposure: No; Do You Dip or Chew Tobacco: No; Hx Alcohol Use: Yes Alcohol type: wine Hx Substance Use: No Preferred Language: [place] Rican Communication Ability: Effective Drafting Supervisor Required: No Beliefs That Will Affect Care: None marital status: Single Current Living Situation: Family Current Living Situation Comment: states sister and her live with him current occupational status: employed 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 [employer] Other Information That Helps Us Care for You: No Feels Safe at Home: Yes Safety Concerns: Feels Safe At This Time Physical Activity Frequency: 5-6 Times per Week Assistive Devices: Glasses Review of Systems Review of Systems: All systems reviewed & are unremarkable except as noted in HPI & below Constitutional: + fever, + fatigue and + malaise Ear, Nose, Mouth, Throat: no nasal congestion and no sore throat Respiratory: no cough and no dyspnea Cardiovascular: + lightheadedness; no chest pain, no pal pitations and no syncope Gastrointestinal: as per Subjective / HPI Genitourinary: + as per Subjective / HPI Integumentary: no rash and no yellowing of the skin Neurologic: + dizziness; no falls, no abnormal speec h and no confusion Physical Exam Physical Exam: Please see the physician note for details of the physical exam. Results & Data Results & Data Vital Signs (Past 12 Hours) Vital Signs Temp Pulse Pulse Resp BP BP Pulse Ox 12/23/23 14:22 85 20 103/59 L 97 12/23/23 14:22 12/23/23 14:21 82 12/23/23 13:40 16 12/23/23 13:17 37.4 C 94 H 18 91/56 L 95 O2 Del Method O2 Flow Rate 12/23/23 14:22 Room Air 12/23/23 14:22 Room Air 97 12/23/23 14:21 12/23/23 13:40 12/23/23 13:17 Room Air Laboratory Results Lab Results 12/23/23 12/23/23 Range/Units 13:45 Unknown WBC 20.09 H (4.8-10.8) K/ul RBC 3.64 L (4.70-6.10) M/uL Hgb 11.2 L (14.0-18.0) g/dl Hct 34.5 L (42.0-52.0) % MCV 94.8 (80.0-100.0) fL MCH 30.8 (25.0-34.0) pg MCHC 32.5 (32.0-36.0) g/dL RDW Std Deviation 46.5 H (36.4-46.3) fL RDW Coeff of George 13.5 (11.5-14.5) % Plt Count 341 (130-400) K/uL MPV 9.2 L (9.4-12.4) fL Immature Gran % (Auto) 0.5 % Neut % (Auto) 87.5 % Lymph % (Auto) 3.2 % [place] % (Auto) 8.3 % Eos % (Auto) 0.2 % Baso % (Auto) 0.3 % Neut # (Auto) 17.57 H (1.40-6.50) K/uL Lymph # (Auto) 0.65 L (1.20-3.40) K/uL [place] # (Auto) 1.66 H (0.11-0.59) K/uL Eos # (Auto) 0.04 (0.00-0.50) K/uL Baso # (Auto) 0.06 (0.00-0.20) K/uL Immature Gran # (Auto) 0.11 (0.01-0.20) K/uL PT 11.6 (9.0-12.0) Seconds INR 1.1 (0.9-1.1) APTT 30 (21-31) Seconds PTT Ratio 1.1 Sodium 133 L (136-145) mmol/L Potassium 3.7 (3.5-5.1) mmol/L Chloride 101 (98-107) mmol/L Carbon Dioxide 25 (21-32) mmol/L Anion Gap 7 (3-11) BUN 18 (6-23) mg/dl Creatinine 0.99 (0.6-1.4) mg/dl Est Cr Clr Drug Dosing 54.4 ml/min Est GFR ( Amer) 84.8 ml/min Est GFR (Non-Af Amer) 73.2 ml/min BUN/Creatinine Ratio 18.2 (10-20) Glucose 104 H (70-99(Fasting)) mg/dl Lactate 1.1 (0.4-2.0) mmol/L Calcium 8.9 (8.6-10.3) mg/dl Total Bilirubin 0.5 (0.2-1.0) mg/dl AST 21 (13-39) U/L ALT 14 (7-52) U/L Alkaline Phosphatase 67 (34-104) U/L Troponin I High Sens 7.3 (0-20) pg/ml Total Protein 6.9 (6.0-8.3) gm/dl Albumin 3.9 (3.4-5.0) gm/dl Globulin 3.0 (2.5-4.0) gm/dl Albumin/Globulin Ratio 1.3 (0.9-2) Procalcitonin 0.11 (0-0.5) ng/ml Urine Color Dark Yellow Urine Appearance Turbid A (Clear) Urine pH 7.5 (4.5-7.5) Ur Specific [place] 1.013 (1.000-1.030) Urine Protein 2+ H (Negative) Urine Glucose (UA) Negative (Negative) Urine Ketones 1+ H (Negative) Urine Blood 3+ H (Negative) Urine Nitrite Positive A (Negative) Urine Bilirubin Negative (Negative) Urine Urobilinogen Negative (Negative) Ur Leukocyte Esterase 3+ H (Negative) Urine WBC (Auto) >50 H (0-5) /hpf Urine RBC (Auto) >20 H (0-2) /hpf U Hyaline Cast (Auto) 6-10 H (0-2) /lpf U Epithel Cells (Auto) 0-2 (0-2) /hpf Urine Bacteria (Auto) 3+ H (None Seen) Diagnostic Findings Chest X-Ray 12/23/23 13:21 XR chest 1V portable CLINICAL HISTORY: dizziness TECHNIQUE: Single frontal radiograph of the chest was obtained. Comparison: Comparison is made to chest radiograph 10/13/2007 FINDINGS: Loop recorder is seen. The cardiomediastinal silhouette is normal. The lungs are clear. No evidence of pleural effusion or pneumothorax. IMPRESSION: No acute chest disease. ACT 112: Negative or not required by law. Electronically signed by: Marciano Madrigal M.D. 12/23/2023 2:45 PM Medications Administered Sodium Chloride (Nss) 1,000 mls @ 999 mls/hr IV .Q1H1M ONE Stop: 12/23/23 15:22 Last Admin: 12/23/23 14:37 Dose: 999 mls/hr Documented By: CARI Discontinued Medications Acetaminophen (Acetaminophen 500 Mg Tab) 1,000 mg PO NOW STA Stop: 12/23/23 13:32 Last Admin: 12/23/23 13:58 Dose: 1,000 mg Documented By: DOLLY Mendoza Syrup (Mendoza Syrup 5 Ml Udp) 5 ml PO ONE STA Stop: 12/23/23 14:24 Last Admin: 12/23/23 14:43 Dose: 5 ml Documented By: CARI Sodium Chloride (Nss) 1,000 mls @ 999 mls/hr IV .Q1H1M ONE Stop: 12/23/23 14:30 Last Infusion: 12/23/23 14:49 Dose: Infused Documented By: Admin: 12/23/23 13:58 Dose: 999 mls/hr Documented By: DOLLY Ceftriaxone Sodium (Rocephin) 2,000 mg in 50 mls @ 100 mls/hr IV NOW STA Stop: 12/23/23 14:51 Last Admin: 12/23/23 14:37 Dose: 100 mls/hr Documented By: CARI Vancomycin HCl (Vancomycin Hcl 125 Mg/2.5ml Soln) 125 mg PO ONE STA Stop: 12/23/23 14:24 Last Admin: 12/23/23 14:43 Dose: 125 mg Documented By: HS Supervising Physician Co-Signing Physician Notes I have seen and discussed the case with the collaborating advanced practitioner. I agree with the above H&P. I have reviewed and confirmed the patients medical history, the findings on physical examination, and the patients diagnosis and treatment plan with Irma GONZALES and agree with the information documented. In short, Ms. Lucas is 78 y/o male with history of bilateral PE in Jun 2023, nonischemic cardiomyopathy, nephrolithiasis, prior TIA, GERD, BPH w/ LUTS s/p TURP who is admitted for concerns of acute complicated cystitis. Patient has been self cathing for 6 months, has experienced multiple urinary tract infections, and now C. Diff. Patient reports 24 hours of worsening urine changes. Fevers since the morning. Diarrhea is now improving on oral vanc (sarted 12/12), now to 2 soft bowel movements a day. GENERAL APPEARANCE: AxOx4, generally well-appearing male, frail no acute distress. HEENT: NC, AT. MMM. EOMI, clear conjunctiva, oropharynx clear. NECK: Supple without lymphadenopathy. No stiffness or restricted ROM. HEART: Normal rate and regular rhythm, normal S1/S1, no m/r/g LUNGS: CTAB, moving air well. No crackles or wheezes are heard. ABDOMEN: Soft, mild tenderness in BLQ nondistended with good bowel sounds heard. BACK: No CVAT, no obvious deformity. EXTREMITIES: Without cyanosis, clubbing or edema. NEUROLOGICAL: Grossly nonfocal. Alert and oriented, moving all 4 extremities. CN not formally tested but appear grossly intact Skin: Warm and dry without any rash. #Sepsis 2/2 acute complicated cystitis #Chronic intermittent catheterization #BPH s/p TURP 09/2023 WBC 20.09, HR 94, febrile -history of enterococcus faecalis, multiple resistant organisms on prior cultu res -Vanc/Cefepime s/p 2 L IV for 30cc/kg Given history of organisms and now with C diff, ID consult for best stewardship for patient Urology: patient not performing best practices for CIC, other alternatives? #C difficile enteritis continue po Vanc contact precautions #Prior PE continue eliquis Rest of plan as above I spent a total of 35 minutes coordinating, documenting, and providing care for this patient excluding time spent in the performance of separately billed services. All of the aforementioned completed outside of collaborating with the assigned advanced practitioner for a full treatment plan. I have reviewed the advanced practitioner's documentation, and I agree with, and take responsibility for the plan of care (1) Sepsis Sepsis acute organ dysfunction status: without acute organ dysfunction Sepsis type: sepsis due to unspecified organism Qualified Code(s): A41.9 - Sepsis, unspecified organism (6) GERD (gastroesophageal reflux disease) Esophagitis presence: without esophagitis Qualified Code(s): K21.9 - Gastro-esophageal reflux disease without esophagitis
[2023-12-23] MEDS ORDERED: VANCOMYCIN CONSULT ACTIVE PRN (15:50)
[2023-12-23] MEDS: CEFEPIME 1,000 MG in SYRINGE 0 ML IV SCH (17:09)
[2023-12-23] MEDS: VANCOMYCIN HCL 1,250 MG in SODIUM CHLORIDE 0.9% 500 ML IV ONE (17:09)
--- NOTE | 2023-12-23 17:35 | Electrocardiogram Report ---
Test Reason : Blood Pressure : / mmHG Vent. Rate : 082 BPM Atrial Rate : 082 BPM P-R Int : 160 ms QRS Dur : 094 ms QT Int : 370 ms P-R-T Axes : 035 042 040 degrees QTc Int : 432 ms Normal sinus rhythm Normal ECG When compared with ECG of 20-JUN-2023 13:58, No significant change was found Confirmed by Jay Simon ([id number]) on 12/23/2023 5:35:21 PM Referred By: REFERRED SELF Confirmed By:Ralph Simon
[2023-12-23] MEDS: CHERRY SYRUP 5 ML UDP PO SCH (19:51)
[2023-12-23] MEDS: VANCOMYCIN HCL 125 MG/2.5ML SOLN PO SCH (19:51)
[2023-12-23] MEDS: APIXABAN 5 MG TABLET PO SCH (21:22)
[2023-12-24] MEDS: ACETAMINOPHEN 325 MG TAB PO PRN (03:35)
[2023-12-24] MEDS: VANCOMYCIN HCL 1,500 MG in SODIUM CHLORIDE 0.9% 500 ML IV SCH (04:25)
--- NOTE | 2023-12-24 07:23 | CT Scan Report ---
ABDOMEN AND PELVIS CT WITHOUT CONTRAST CT DOSE: 499.7 mGy.cm HISTORY: Acute sepsis Sepsis. hx of outlet obstruction and stones TECHNIQUE: Multiaxial CT images of the abdomen and pelvis were performed without contrast. A dose lo wering technique was utilized adhering to the principles of ALARA. COMPARISON STUDY: Renal ultrasound 06/20/2023, CT abdomen and pelvis 06/20/2023 FINDINGS: Cardiomegaly. The lung bases are generally clear. No free air. Unremarkable unenhanced sple en, pancreas, gallbladder, adrenal glands and liver. There are a few punctate nonobstructing left renal calculi. Nonobstructing calculi of the right kidne y measure up to 5 mm. There is mild to moderate right-sided hydroureteronephrosis secondary to an obs tructing 8 x 7 x 8 mm calculus of the proximal right ureter at the level of L4. There are a few subce ntimeter hyperdense foci within the cortex of the right kidney likely representing complex cysts. Dec ompressed bladder with Hidalgo catheter in place. Circumferential urinary bladder wall thickening with intraluminal air. Prostatomegaly. Atherosclerosis of the aorta. No lymphadenopathy. Small hiatal hernia. There is no bowel obstruction. Moderate colonic fecal retention. No CT evidence of acute appendicitis. Small fat filled umbilical hernia. No acute fracture. IMPRESSION: 1. [id number] right-sided hydroureteronephrosis secondary to an obstructing 8 mm calculus withi n the right ureter at the level of L4. 2. Right greater than left nonobstructing bilateral nephrolithiasis. 3. Prostamegaly with evidence of chronic bladder outlet obstruction. 4. No bowel obstruction or bowel wall thickening. ACT 112: Negative or not required by law. The above report was generated using voice recognition software. It may contain grammatical, syntax o r spelling errors. Electronically signed by: Gonzalez Preciado M.D. 12/24/2023 7:20 AM
[2023-12-24 08:08] LABS: Basophils # (auto) 0.05 K/uL (0.00-0.20); Basophils % (auto) 0.3 %; Eosinophils # (auto) 0.34 K/uL (0.00-0.50); Eosinophils % (auto) 1.9 %; Hematocrit (blood only) 32.7 % (42.0-52.0); Hemoglobin 10.6 g/dl (14.0-18.0); Immature Granulocytes # (auto) 0.08 K/uL (0.01-0.20); Immature Granulocytes % (auto) 0.5 %; Lymphocytes # (auto) 1.63 K/uL (1.20-3.40); Lymphocytes % (auto) 9.3 %; Mean Corpuscular Hgb Conc 32.4 g/dL (32.0-36.0); Mean Corpuscular Volume 95.6 fL (80.0-100.0); Mean Platelet Volume 9.3 fL (9.4-12.4); Monocytes # (auto) 1.44 K/uL (0.11-0.59); Monocytes % (auto) 8.2 %; Neutrophils # (auto) 14.02 K/uL (1.40-6.50); Neutrophils % (auto) 79.8 %; Platelet Count 294 K/uL (130-400); RDW Coefficient of Variation 13.8 % (11.5-14.5); RDW Standard Deviation 48.6 fL (36.4-46.3); Red Blood Count 3.42 M/uL (4.70-6.10); White Blood Count 17.56 K/ul (4.8-10.8)
[2023-12-24 08:20] LABS: BUN Creatinine Ratio 14.9 (10-20); Calcium 8.5 mg/dl (8.6-10.3); Creatinine Clr Calc Pharmacy 54.1 ml/min; Est GFR (African American) 90.3 ml/min; Est GFR (Non-African American) 77.9 ml/min; Potassium 4.2 mmol/L (3.5-5.1)
[2023-12-24] MEDS: MAGNESIUM OXIDE 400 MG TAB PO SCH (08:21)
[2023-12-24] MEDS: ESCITALOPRAM OXALATE 10 MG TAB PO SCH (08:22)
[2023-12-24] MEDS: CEROVITE ADV FORMULA TAB PO SCH (08:22)
[2023-12-24] MEDS: TAMSULOSIN HCL 0.4 MG CAP PO SCH (08:23)
[2023-12-24] MEDS: ROSUVASTATIN CALCIUM 10 MG TAB PO SCH (08:23)
[2023-12-24] MEDS: PANTOprazole 40 MG TAB PO SCH (08:23)
[2023-12-24] MEDS: PIPERACILLIN/TAZOBACTAM 4.5 GM in DEXTROSE 5% MINI-B 100 ML IV ONE (08:44)
--- NOTE | 2023-12-24 09:01 | Pharmacy Report ---
Pharmacy PK ABX Note - Date of Service December 24, 2023 - Assessment and Plan Assessment 78 year old M receiving vancomycin/Zosyn for treatment of catheter associated UTI (patient self caths due to enlarged prostate). Pertinent microbiologic data includes:urine culture growing probably pseudomonas and E. Coli (final identifcation and sensitivities pending), blood cultures pending. Previous culture history includes hendrix-sensitve E. Faecalis 08/07, 11/05 hendrix-sensitive K. oxytoca, alpha strep (treated with Augmentin), 12/05 hendrix-sensitive E. Coli (treated with Bactrim) Day # 2 of antimicrobial therapy. Plan Vancomycin * Loading dose: 1250 mg IV x 1 * Maintenance dose: 1500 mg IV every 24 hours * Regimen is predicted to achieve target AUC/LOGAN of 400-600 mg/L.hr * Trough level ordered for: 12/25/23 @ 0330 Pharmacy will continue to follow and will adjust dose/frequency as necessary. Thank you. Pharmacy has transitioned to AUC monitoring for vancomycin. AUC/LOGAN is the preferred PK/PD target and is associated with decreased risk of nephrotoxicity compared to traditional trough targets.
--- NOTE | 2023-12-24 09:34 | Urology Consultation ---
Date of Consultation December 24, 2023 Assessment & Plan (1) Ureteral stone: (2) Hydronephrosis: (3) Acute UTI (urinary tract infection): (4) Urinary retention: Plan Pt afebrile, hemodynamically stable, non-toxic appearing at present. Labs today show leukocytosis 20-17 today and normal renal function. UA suspicious for infection. Urine/blood cultures pending. We reviewed his CT imaging, specifically the obstructing 8mm proximal right ureteral stone. We discussed acute stone management. Given the obstructing stone and infection, we discussed recommendation for cystoscopy and stent placement. Ureteral stents were discussed as well as postoperative issues and pain management. He is aware a second procedure will be needed for stone treatment after the infection has cleared. Risks and benefits discussed. All questions were answered. Pt is agreeable to proceeding. Plan to proceed to OR today for cystoscopy, right retrograde pyelogram, right ureteral stent placement. Risks and benefits to be reviewed with patient by Dr. Castellanos. OR notified. Keep NPO. Covered with scheduled IV Vancomycin/Zosyn. Continue supportive care and pain management as needed. Maintain Hidalgo catheter. Urology to follow. Please contact our service urgently if patient develops fever, hypotension, or other acute changes as this may necessitate urgent surgical intervention. Supervising Physician Co-Signing Physician Notes Discussed patient with SAEID. Agree with plan. Saw patient. Consent obtained. Patient marked. History of Present Illness Attending Physician: Octavio Forbes MD History of Present Illness 78 year old male with history of bilateral PE in Jun 2023, nonischemic c ardiomyopathy, nephrolithiasis, prior TIA, GERD, BPH w/ LUTS s/p TURP who presents to the ED today from urgent care due to worsening illness, fever, and urinary symptoms. On arrival to the ED he was febrile and hypotensive. Labs showing a leukocytosis of 20 and normal renal function. Lactate was normal. Initial hypotension improved with fluid resuscitation. Urinalysis suspicious for infection with 3+ blood, positive nitrite, 3+ LE, 3+ bacteria. Urine and blood cultures were collected and pending. On Vanco/Zosyn. Hidalgo catheter placed. Pt admitted to medicine service. CT abd pelvis imaging 12/23 notable for an obstructing 8 mm calculus within the right ureter causing mildmoderate hydronephrosis. Of note - Pt had outpatient testing for C. difficile which was positive and he has been on oral vancomycin. CT abd pelvis- 1. [id number] right-sided hydroureteronephrosis secondary to an obstructing 8 mm calculus within the right ureter at the level of L4. 2. Right greater than left nonobstructing bilateral nephrolithiasis. 3. Prostamegaly with evidence of chronic bladder outlet obstruction. 4. No bowel obstruction or bowel wall thickening. Patient is well known to the urology service, follows with Dr. Ahumada/Susana VICENTE. Hx of TURP 09/26/23. Pt has had ongoing urinary retention/incomplete bladder emptying s/p TURP. Had been straight catheterizing 3-4x/daily. Was scheduled for UDS testing 12/18 but urine dip in office concerning for infection so procedure deferred. Recent urine culture hx- 11/29/23 grew E.coli 12/16/23 negative Patient seen at bedside this AM. Awake and resting in bed on arrival. No acute distress. Hidalgo intact and draining clear yellow urine. Patient reports right flank pain, currently rates 5/10. Denies fever, chills, nausea, vomiting. Has been NPO. Allergies Allergy/AdvReac Type Severity Reaction Status Date / Time latex Allergy Rash Verified 12/23/23 20:22 adhesive AdvReac Mild Rash Verified 12/23/23 12:30 atorvastatin [From Lipitor] AdvReac Mild Joints hurt Verified 12/23/23 12:30 Home Medications Medication Instructions Recorded Confirmed Type escitalopram oxalate 10 mg tablet 5 mg PO QAM 06/20/23 12/23/23 History esomeprazole magnesium 20 mg 20 mg PO DAILY Heartburn 06/20/23 12/23/23 History capsule,delayed release (Nexium) magnesium oxide 400 mg PO QAM 06/20/23 12/23/23 History rosuvastatin 10 mg tablet 10 mg PO QAM 06/20/23 12/23/23 History sodium chloride 0.65 % nasal spray 2 spray intranasal DIRECTED PRN 06/20/23 12/23/23 History aerosol (Saline Nasal Mist) Nasal Congestion tamsulosin 0.4 mg capsule 0.4 mg PO QAM #30 caps 06/22/23 12/23/23 Rx apixaban 5 mg tablet (Eliquis) 5 mg PO AMHS 10/06/23 12/23/23 History multivitamin with minerals 1 tab PO DAILY 10/06/23 12/23/23 History (Multiple Vitamin-Minerals tablet) Patient History Medical History (Updated 12/24/23 @ 13:33 by Marciano Ford DO) Sepsis GERD (gastroesophageal reflux disease) (09/29/14) Amaurosis fugax of left eye PFO (patent foramen ovale) (03/01/20) Hyperlipidemia (08/10/14) History of transient ischemic attack (TIA) (01/03/22) Bilateral pulmonary embolism (07/03/23) Adjustment disorder with depressed mood (10/20/07) Pure hypercholesterolemia (07/25/22) Nonrheumatic aortic valve insufficiency (07/03/23) Moderate mitral regurgitation (11/13/19) Anxiety state (10/20/07) PFO (patent foramen ovale) History- s/p percutaneous closure November 2020 History of TIA (transient ischemic attack) Around 2019 per records (amaurosis fugax/transient left eye visual loss per records) Urinary retention self cath prn GERD (gastroesophageal reflux disease) Enlarged prostate History of anxiety Hx of renal calculi (~1969) UTI (urinary tract infection) (~08/2023) current ampicillin start 09/09/23 Nonischemic cardiomyopathy Idiopathicdiagnosed 2011no obstructive CAD with return to normal LV function Surgical History Hx of closure of congenital atrial septal defect by percutaneous transcatheter technique (~2019) Amplatzer Pfo Occluder, [facility] [place] History of loop recorder (~2018) checked monthly, follows with Dr. Titus at [facility], no issues Hx of tonsillectomy S/P appy Family History Father , age 78 Coronary heart disease Social History Smoking Status: Former smoker Cigarettes Per Day: 4; Smoking End Date: 50 years ago; Second Hand Exposure: No; Do You Dip or Chew Tobacco: No; Hx Alcohol Use: Yes Alcohol type: wine Hx Substance Use: No Preferred Language: Yoruba Communication Ability: Effective Solderer Required: No Beliefs That Will Affect Care: None marital status: Single Current Living Situation: Family Current Living Situation Comment: states sister and her live with him current occupational status: employed 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 Other Information That Helps Us Care for You: No Feels Safe at Home: Yes Safety Concerns: Feels Safe At This Time Physical Activity Frequency: 5-6 Times per Week Assistive Devices: None Review of Systems Review of Systems: All systems reviewed & are unremarkable except as noted in HPI & below Physical Exam Constitutional: no acute distress Neck: normal visual inspection Respiratory: no respiratory distress and no labored breathing Musculoskeletal: Head/Neck/Chest: normocephalic Neurologic: moves all extremities and awake Psychiatric: A+Ox3, euthymic affect Genitourinary: Hidalgo intact Results & Data Vital Signs (Past 12 Hours) Vital Signs Temp Pulse Pulse Resp BP Pulse Ox O2 Del Method 12/24/23 07:38 36.6 C 61 18 134/73 95 Room Air 12/24/23 04:08 37.0 C 66 18 113/55 L 96 Room Air 12/23/23 23:41 36.7 C 79 18 102/58 L 96 Room Air 12/23/23 22:02 70 PG Care Time/CCT Total # of Minutes Spent Total Time Spent with Patient: Total time spent is greater than 50% in coordination of care (as documented) at patient's floor/unit and/or counseling patient: Coding Level of Care Code 81212 INT INP/OBS CARE 2/55MIN Diagnoses Ureteral stone N20.1 Hydronephrosis N13.30 Acute UTI (urinary tract infection) N39.0 Urinary retention R33.9
--- NOTE | 2023-12-24 12:37 | Hospitalist Progress Note ---
Date of Service December 24, 2023 Assessment & Plan (1) Sepsis: Plan: This is a 78 y/o male with history of bilateral PE in Jun 2023, nonischemic cardiomyopathy, nephrolithiasis, prior TIA, GERD, BPH w/ LUTS s/p TURP, and other history as outlined below who presents to the ED today from urgent care after he was found to be febrile with orthostasis. Pt has a complex urologic history as outlined in the HPI with multiple courses of antibiotics in the last six months for infection. He has continued to require self-catheterization multiple times per day due to persistent urinary retention. Clinical presentation consistent with sepsis with likely source of infection a recurrent UTI. No evidence of end-organ dysfunction. Lactate was normal. Initial hypotension improved with fluid resuscitation. Pt reports his baseline BP is in the 110s systolic. - - Broad-spectrum antibiotic coverage with cefepime /zosyn and vancomycin in view of multiple organisms on recent urine cultures - consult infectious disease to assist with antibiotic management - Blood and urine cultures pending - Consulted urology due to complicated UTI, ongoing urinary retention - pt has obstructing ureteral stone - plan for cystoscopy and stent placement today (12/24/23) - Hidalgo catheter placed on admission - received IVF - monitor WBC (CBC, BMP), labs ordered (2) Acute UTI (urinary tract infection): Plan: see plan for #1 (3) C. difficile colitis: Plan: Continue oral vancomycin - will need to discuss length of treatment since pt continues on antibiotics for UTI as well Isolation precautions (4) BPH with obstruction/lower urinary tract symptoms: Plan: Chronic, ongoing issues with retention s/p TURP Continue tamsulosin Urology consult (5) Bilateral pulmonary embolism: Plan: Jun 2023 - on chronic AC Continue apixaban BID (6) GERD (gastroesophageal reflux disease): Plan: Chronic, stable Continue PPI therapy Plan Code Status: full code DVT Prophylaxis: on apixaban Dispo: PCU Admission and Anticipated Discharge Date Admission Date: December 23, 2023 Subjective Pt seen in follow up of obstructing ureteral stone, also w/ c. diff infection Plan for stent placement by urology later today Currently laying in bed in NAD He has some pain in right lower abd. quadrant No chest pain or shortness of breath, overall feels fairly comfortable Review of Systems Review of Systems: All systems reviewed & are unremarkable except as noted in Subjective Physical Exam Physical Exam: GENERAL: AxOx4, generally well-appearing male, no acute distress. HEENT: NC, AT. MMM. EOMI NECK: Supple HEART: Normal rate and regular rhythm, normal S1/S1, no m/r/g LUNGS: CTAB, moving air well. No crackles or wheezes are heard. ABDOMEN: Soft, mild tenderness in RLQ , nondistended with + bowel sounds BACK: No CVAT, no obvious deformity. EXTREMITIES: no LE edema, moves extremities NEUROLOGICAL: Awake, alert and oriented, moving all 4 extremities. Answers appropriately, speech fluent. Skin: Warm, dry Results & Data Results & Data Vital Signs (Past 12 Hours) Vital Signs Temp Pulse Pulse Resp BP Pulse Ox O2 Del Method 12/24/23 12:02 36.6 C 63 18 122/64 94 Room Air 12/24/23 08:57 Room Air 12/24/23 07:38 36.6 C 61 18 134/73 95 Room Air 12/24/23 07:00 65 12/24/23 04:08 37.0 C 66 18 113/55 L 96 Room Air Laboratory Results 12/24/23 12/23/23 12/23/23 Range/Units 07:39 Unknown 13:45 WBC 17.56 H 20.09 H (4.8-10.8) K/ul RBC 3.42 L 3.64 L (4.70-6.10) M/uL Hgb 10.6 L 11.2 L (14.0-18.0) g/dl Hct 32.7 L 34.5 L (42.0-52.0) % MCV 95.6 94.8 (80.0-100.0) fL MCH 31.0 30.8 (25.0-34.0) pg MCHC 32.4 32.5 (32.0-36.0) g/dL RDW Std Deviation 48.6 H 46.5 H (36.4-46.3) fL RDW Coeff of George 13.8 13.5 (11.5-14.5) % Plt Count 294 341 (130-400) K/uL MPV 9.3 L 9.2 L (9.4-12.4) fL Immature Gran % (Auto) 0.5 0.5 % Neut % (Auto) 79.8 87.5 % Lymph % (Auto) 9.3 3.2 % [place] % (Auto) 8.2 8.3 % Eos % (Auto) 1.9 0.2 % Baso % (Auto) 0.3 0.3 % Neut # (Auto) 14.02 H 17.57 H (1.40-6.50) K/uL Lymph # (Auto) 1.63 0.65 L (1.20-3.40) K/uL [place] # (Auto) 1.44 H 1.66 H (0.11-0.59) K/uL Eos # (Auto) 0.34 0.04 (0.00-0.50) K/uL Baso # (Auto) 0.05 0.06 (0.00-0.20) K/uL Immature Gran # (Auto) 0.08 0.11 (0.01-0.20) K/uL PT 11.6 (9.0-12.0) Seconds INR 1.1 (0.9-1.1) APTT 30 (21-31) Seconds PTT Ratio 1.1 Sodium 140 133 L (136-145) mmol/L Potassium 4.2 3.7 (3.5-5.1) mmol/L Chloride 110 H 101 (98-107) mmol/L Carbon Dioxide 25 25 (21-32) mmol/L Anion Gap 5 7 (3-11) BUN 14 18 (6-23) mg/dl Creatinine 0.94 0.99 (0.6-1.4) mg/dl Est Cr Clr Drug Dosing 54.1 54.4 ml/min Est GFR ( Amer) 90.3 84.8 ml/min Est GFR (Non-Af Amer) 77.9 73.2 ml/min BUN/Creatinine Ratio 14.9 18.2 (10-20) Glucose 99 104 H (70-99(Fasting)) mg/dl Lactate 1.1 (0.4-2.0) mmol/L Calcium 8.5 L 8.9 (8.6-10.3) mg/dl Total Bilirubin 0.5 (0.2-1.0) mg/dl AST 21 (13-39) U/L ALT 14 (7-52) U/L Alkaline Phosphatase 67 (34-104) U/L Troponin I High Sens 7.3 (0-20) pg/ml Total Protein 6.9 (6.0-8.3) gm/dl Albumin 3.9 (3.4-5.0) gm/dl Globulin 3.0 (2.5-4.0) gm/dl Albumin/Globulin Ratio 1.3 (0.9-2) Procalcitonin 0.11 (0-0.5) ng/ml Urine Color Dark Yellow Urine Appearance Turbid A (Clear) Urine pH 7.5 (4.5-7.5) Ur Specific [place] 1.013 (1.000-1.030) Urine Protein 2+ H (Negative) Urine Glucose (UA) Negative (Negative) Urine Ketones 1+ H (Negative) Urine Blood 3+ H (Negative) Urine Nitrite Positive A (Negative) Urine Bilirubin Negative (Negative) Urine Urobilinogen Negative (Negative) Ur Leukocyte Esterase 3+ H (Negative) Urine WBC (Auto) >50 H (0-5) /hpf Urine RBC (Auto) >20 H (0-2) /hpf U Hyaline Cast (Auto) 6-10 H (0-2) /lpf U Epithel Cells (Auto) 0-2 (0-2) /hpf Urine Bacteria (Auto) 3+ H (None Seen) Medications Administered Current Inpatient Medications Acetaminophen (Acetaminophen 325 Mg Tab) 650 mg PO Q4H PRN PRN Reason: Pain or Fever Stop: 01/22/24 19:22 Last Admin: 12/24/23 09:58 Dose: 650 mg Apixaban (Apixaban 5 Mg Tablet) 5 mg PO BID FRANK Stop: 01/22/24 20:59 Last Admin: 12/24/23 08:24 Dose: 5 mg Mendoza Syrup (Mendoza Syrup 5 Ml Udp) 5 ml PO Q6 FRANK Stop: 01/02/24 17:59 Last Admin: 12/24/23 06:02 Dose: 5 ml Escitalopram Oxalate (Escitalopram Oxalate 10 Mg Tab) 5 mg PO QAM FRANK Stop: 01/23/24 08:59 Last Admin: 12/24/23 08:22 Dose: 5 mg Vancomycin HCl 1,500 mg/ (Sodium Chloride) 530 mls @ 200 mls/hr IV Q24H FRANK Stop: 01/03/24 03:59 Last Infusion: 12/24/23 08:28 Dose: Infused Piperacillin Sod/Tazobactam (Sod 4.5 gm/ Dextrose) 100 mls @ 25 mls/hr IV Q8H [facility]; Protocol Stop: 01/03/24 12:59 Magnesium Oxide (Magnesium Oxide 400 Mg Tab) 400 mg PO QAM [facility] Stop: 01/23/24 08:59 Last Admin: 12/24/23 08:21 Dose: 400 mg Miscellaneous Information (Vancomycin Consult Active) 1 each N/A UD PRN PRN Reason: Consult Stop: 01/22/24 15:49 Multivitamins/Minerals (Cerovite Adv Formula Tab) 1 tab PO DAILY [facility] Stop: 01/23/24 08:59 Last Admin: 12/24/23 08:22 Dose: 1 tab Pantoprazole Sodium (Pantoprazole 40 Mg Tab) 40 mg PO DAILY [facility] Stop: 01/23/24 08:59 Last Admin: 12/24/23 08:23 Dose: 40 mg Rosuvastatin Calcium (Rosuvastatin Calcium 10 Mg Tab) 10 mg PO QAM [facility] Stop: 01/23/24 08:59 Last Admin: 12/24/23 08:23 Dose: 10 mg Tamsulosin HCl (Tamsulosin Hcl 0.4 Mg Cap) 0.4 mg PO QAM [facility] Stop: 01/23/24 08:59 Last Admin: 12/24/23 08:23 Dose: 0.4 mg Vancomycin HCl (Vancomycin Hcl 125 Mg/2.5ml Soln) 125 mg PO Q6 [facility] Stop: 01/02/24 17:59 Last Admin: 12/24/23 06:02 Dose: 125 mg (1) Sepsis Sepsis acute organ dysfunction status: without acute organ dysfunction Sepsis type: sepsis due to unspecified organism Qualified Code(s): A41.9 - Sepsis, unspecified organism (6) GERD (gastroesophageal reflux disease) Esophagitis presence: without esophagitis Qualified Code(s): K21.9 - Gastro- esophageal reflux disease without esophagitis
[2023-12-24] MEDS: PIPERACILLIN/TAZOBACTAM 4.5 GM in DEXTROSE 5% MINI-B 100 ML IV SCH (13:15)
--- NOTE | 2023-12-24 13:34 | Anesthesiology Consultation ---
Date of Service December 24, 2023 Assessment & Plan Chart Review Chart Review: Acceptable Risk for Surgery and Patient NOT seen in Pre Admission Testing History Surgery Operation Date: 12/24/23 07:00 Proposed Procedures p Cystoscopy, Right Retrograde Pyelogram and Stent Placement - James Castellanos MD Height/Weight Height: 5 ft 10 in Weight: 58.1 kg Allergies Allergy/AdvReac Type Severity Reaction Status Date / Time latex Allergy Rash Verified 12/23/23 20:22 adhesive AdvReac Mild Rash Verified 12/23/23 12:30 atorvastatin [From Lipitor] AdvReac Mild Joints hurt Verified 12/23/23 12:30 Medications Home Medications Medication Instructions Recorded Confirmed Last Taken escitalopram oxalate 10 mg tablet 5 mg PO QAM 06/20/23 12/23/23 12/23/23 esomeprazole magnesium 20 mg 20 mg PO DAILY Heartburn 06/20/23 12/23/23 12/23/23 capsule,delayed release (Nexium) magnesium oxide 400 mg PO QAM 06/20/23 12/23/23 12/23/23 rosuvastatin 10 mg tablet 10 mg PO QAM 06/20/23 12/23/23 12/23/23 sodium chloride 0.65 % nasal spray 2 spray intranasal DIRECTED PRN 06/20/23 12/23/23 09/19/23 aerosol (Saline Nasal Mist) Nasal Congestion tamsulosin 0.4 mg capsule 0.4 mg PO QAM #30 caps 06/22/23 12/23/23 12/23/23 apixaban 5 mg tablet (Eliquis) 5 mg PO AMHS 10/06/23 12/23/23 12/23/23 multivitamin with minerals 1 tab PO DAILY 10/06/23 12/23/23 12/23/23 (Multiple Vitamin-Minerals tablet) Active Medications Generic Name Dose Route Start Last Admin Trade Name Freq PRN Reason Stop Dose Admin Acetaminophen 650 mg 12/23/23 19:23 12/24/23 09:58 Acetaminophen 325 Mg Tab PO 01/22/24 19:22 650 mg Q4H PRN Administration Pain or Fever Apixaban 5 mg 12/23/23 21:00 12/24/23 08:24 Apixaban 5 Mg Tablet PO 01/22/24 20:59 5 mg BID FRANK Administration Mendoza Syrup 5 ml 12/23/23 18:00 12/24/23 13:12 Mendoza Syrup 5 Ml Udp PO 01/02/24 17:59 Not Given Q6 FRANK Escitalopram Oxalate 5 mg 12/24/23 09:00 12/24/23 08:22 Escitalopram Oxalate 10 Mg Tab PO 01/23/24 08:59 5 mg QAM FRANK Administration Vancomycin HCl 1,500 mg/ 530 mls @ 200 mls/hr 12/24/23 04:00 12/24/23 08:28 Sodium Chloride IV 01/03/24 03:59 Infused Q24H FRANK Infusion Piperacillin Sod/Tazobactam 100 mls @ 25 mls/hr 12/24/23 13:00 12/24/23 13:15 Sod 4.5 gm/ Dextrose IV 01/03/24 12:59 25 mls/hr Q8H FRANK Administration Protocol Magnesium Oxide 400 mg 12/24/23 09:00 12/24/23 08:21 Magnesium Oxide 400 Mg Tab PO 01/23/24 08:59 400 mg QAM FRANK Administration Multivitamins/Minerals 1 tab 12/24/23 09:00 12/24/23 08:22 Cerovite Adv Formula Tab PO 01/23/24 08:59 1 tab DAILY FRANK Administration Pantoprazole Sodium 40 mg 12/24/23 09:00 12/24/23 08:23 Pantoprazole 40 Mg Tab PO 01/23/24 08:59 40 mg DAILY FRANK Administration Rosuvastatin Calcium 10 mg 12/24/23 09:00 12/24/23 08:23 Rosuvastatin Calcium 10 Mg Tab PO 01/23/24 08:59 10 mg QAM FRANK Administration Tamsulosin HCl 0.4 mg 12/24/23 09:00 12/24/23 08:23 Tamsulosin Hcl 0.4 Mg Cap PO 01/23/24 08:59 0.4 mg QAM FRANK Administration Vancomycin HCl 125 mg 12/23/23 18:00 12/24/23 13:13 Vancomycin Hcl 125 Mg/2.5ml Soln PO 01/02/24 17:59 Not Given Q6 FRANK Past Medical History Medical History (Updated 12/24/23 @ 13:33 by Marciano Ford DO) Sepsis GERD (gastroesophageal reflux disease) (09/29/14) Amaurosis fugax of left eye PFO (patent foramen ovale) (03/01/20) Hyperlipidemia (08/10/14) History of transient ischemic attack (TIA) (01/03/22) Bilateral pulmonary embolism (07/03/23) Adjustment disorder with depressed mood (10/20/07) Pure hypercholesterolemia (07/25/22) Nonrheumatic aortic valve insufficiency (07/03/23) Moderate mitral regurgitation (11/13/19) Anxiety state (10/20/07) PFO (patent foramen ovale) History- s/p percutaneous closure November 2020 History of TIA (transient ischemic attack) Around 2019 per records (amaurosis fugax/transient left eye visual loss per records) Urinary retention self cath prn GERD (gastroesophageal reflux disease) Enlarged prostate History of anxiety Hx of renal calculi (~1969) UTI (urinary tract infection) (~08/2023) current ampicillin start 09/09/23 Nonischemic cardiomyopathy Idiopathicdiagnosed 2012no obstructive CAD with return to normal LV function Past Family History Family History Father , age 78 Coronary heart disease Past Surgical History Surgical History Hx of closure of congenital atrial septal defect by percutaneous transcatheter technique (~2019) Amplatzer Pfo Occluder, [facility] [place] History of loop recorder (~2018) checked monthly, follows with Dr. Titus at [facility], no issues Hx of tonsillectomy S/P appy Social History Smoking Status: Former smoker Smoking cigarettes per day: 4 Do You Dip or Chew Tobacco: No Smoking End Date: 50 years ago Hx Alcohol Use: Yes Alcohol type: wine alcohol intake frequency: holidays/special occasions only Hx Substance Use: No substance use type: does not use Physical Exam Vital Signs Last Vital Signs Temp 36.6 C 12/24/23 12:02 Pulse 63 12/24/23 12:02 Resp 18 12/24/23 12:02 BP 122/64 12/24/23 12:02 Pulse Ox 94 12/24/23 12:02 O2 Del Method Room Air 12/24/23 12:02 O2 Flow Rate 97 12/23/23 14:22 Testing Laboratory Results 12/24/23 07:39 12/24/23 07:39 PT 11.6 Seconds (9.0-12.0) 12/23/23 13:45 INR 1.1 (0.9-1.1) 12/23/23 13:45 APTT 30 Seconds (21-31) 12/23/23 13:45 Urine Color Dark Yellow 12/23/23 Unknown Urine Appearance Turbid (Clear) A 12/23/23 Unknown Urine pH 7.5 (4.5-7.5) 12/23/23 Unknown Ur Specific [place] 1.013 (1.000-1.030) 12/23/23 Unknown Urine Protein 2+ (Negative) H 12/23/23 Unknown Urine Glucose (UA) Negative (Negative) 12/23/23 Unknown Urine Ketones 1+ (Negative) H 12/23/23 Unknown Urine Nitrite Positive (Negative) A 12/23/23 Unknown Ur Leukocyte Esterase 3+ (Negative) H 12/23/23 Unknown Urine WBC (Auto) >50 /hpf (0-5) H 12/23/23 Unknown Urine RBC (Auto) >20 /hpf (0-2) H 12/23/23 Unknown U Hyaline Cast (Auto) 6-10 /lpf (0-2) H 12/23/23 Unknown U Epithel Cells (Auto) 0-2 /hpf (0-2) 12/23/23 Unknown Urine Bacteria (Auto) 3+ (None Seen) H 12/23/23 Unknown 12/23/23 Unknown Urine Culture - Preliminary Urine,Clean Catch Probable Pseudomonas species Escherichia coli
[2023-12-24] MEDS ORDERED: LIDOCAINE 2% 2 ML VIAL/AMP(20MG/ML) INFIL ONE (15:30)
[2023-12-24] MEDS ORDERED: PROPOFOL IV EMULSION 10 MG/ML 20 ML VIAL IV ONE ×3 (15:30→17:24)
[2023-12-24] MEDS ORDERED: DEXAMETHASONE SOD INJ 4 MG/ML VIAL ONE (15:30)
[2023-12-24] MEDS ORDERED: fentaNYL citrate PF 100 MCG/2 ML VIAL ONE (15:30)
[2023-12-24] MEDS ORDERED: ONDANSETRON INJ 2 MG/ML 2 ML VIAL ONE (15:30)
--- NOTE | 2023-12-24 16:21 | Anesthesiology Consultation ---
Date of Service December 24, 2023 Assessment & Plan Chart Review Chart Review: Acceptable Risk for Surgery Consults Requested none History Surgery Operation Date: 12/24/23 07:00 Proposed Procedures p Cystoscopy, Right Retrograde Pyelogram and Stent Placement - James Castellanos MD Height/Weight Height: 5 ft 10 in Weight: 58.1 kg Allergies Allergy/AdvReac Type Severity Reaction Status Date / Time latex Allergy Rash Verified 12/23/23 20:22 adhesive AdvReac Mild Rash Verified 12/23/23 12:30 atorvastatin [From Lipitor] AdvReac Mild Joints hurt Verified 12/23/23 12:30 Medications Home Medications Medication Instructions Recorded Confirmed Last Taken escitalopram oxalate 10 mg tablet 5 mg PO QAM 06/20/23 12/23/23 12/23/23 esomeprazole magnesium 20 mg 20 mg PO DAILY Heartburn 06/20/23 12/23/23 12/23/23 capsule,delayed release (Nexium) magnesium oxide 400 mg PO QAM 06/20/23 12/23/23 12/23/23 rosuvastatin 10 mg tablet 10 mg PO QAM 06/20/23 12/23/23 12/23/23 sodium chloride 0.65 % nasal spray 2 spray intranasal DIRECTED PRN 06/20/23 12/23/23 09/19/23 aerosol (Saline Nasal Mist) Nasal Congestion tamsulosin 0.4 mg capsule 0.4 mg PO QAM #30 caps 06/22/23 12/23/23 12/23/23 apixaban 5 mg tablet (Eliquis) 5 mg PO AMHS 10/06/23 12/23/23 12/23/23 multivitamin with minerals 1 tab PO DAILY 10/06/23 12/23/23 12/23/23 (Multiple Vitamin-Minerals tablet) Active Medications Generic Name Dose Route Start Last Admin Trade Name Freq PRN Reason Stop Dose Admin Acetaminophen 650 mg 12/23/23 19:23 12/24/23 09:58 Acetaminophen 325 Mg Tab PO 01/22/24 19:22 650 mg Q4H PRN Administration Pain or Fever Apixaban 5 mg 12/23/23 21:00 12/24/23 08:24 Apixaban 5 Mg Tablet PO 01/22/24 20:59 5 mg BID FRANK Administration Mendoza Syrup 5 ml 12/23/23 18:00 12/24/23 13:12 Mendoza Syrup 5 Ml Udp PO 01/02/24 17:59 Not Given Q6 FRANK Escitalopram Oxalate 5 mg 12/24/23 09:00 12/24/23 08:22 Escitalopram Oxalate 10 Mg Tab PO 01/23/24 08:59 5 mg QAM FRANK Administration Vancomycin HCl 1,500 mg/ 530 mls @ 200 mls/hr 12/24/23 04:00 12/24/23 08:28 Sodium Chloride IV 01/03/24 03:59 Infused Q24H FRANK Infusion Piperacillin Sod/Tazobactam 100 mls @ 25 mls/hr 12/24/23 13:00 12/24/23 16:02 Sod 4.5 gm/ Dextrose IV 01/03/24 12:59 0 mls/hr Q8H FRANK Infusion Protocol Magnesium Oxide 400 mg 12/24/23 09:00 12/24/23 08:21 Magnesium Oxide 400 Mg Tab PO 01/23/24 08:59 400 mg QAM FRANK Administration Multivitamins/Minerals 1 tab 12/24/23 09:00 12/24/23 08:22 Cerovite Adv Formula Tab PO 01/23/24 08:59 1 tab DAILY FRANK Administration Pantoprazole Sodium 40 mg 12/24/23 09:00 12/24/23 08:23 Pantoprazole 40 Mg Tab PO 01/23/24 08:59 40 mg DAILY FRANK Administration Rosuvastatin Calcium 10 mg 12/24/23 09:00 12/24/23 08:23 Rosuvastatin Calcium 10 Mg Tab PO 01/23/24 08:59 10 mg QAM FRANK Administration Tamsulosin HCl 0.4 mg 12/24/23 09:00 12/24/23 08:23 Tamsulosin Hcl 0.4 Mg Cap PO 01/23/24 08:59 0.4 mg QAM FRANK Administration Vancomycin HCl 125 mg 12/23/23 18:00 12/24/23 13:13 Vancomycin Hcl 125 Mg/2.5ml Soln PO 01/02/24 17:59 Not Given Q6 FRANK NPO Date Last Intake of Fluids: 12/24/23 Time Last Intake of Fluids: 10:00 Last Intake of Fluids Comment: sip of water Date Last Intake of Solids: 12/23/23 Time Last Intake of Solids: 14:00 Past Medical History Medical History (Updated 12/24/23 @ 13:33 by Marciano Ford DO) Sepsis GERD (gastroesophageal reflux disease) (09/29/14) Amaurosis fugax of left eye PFO (patent foramen ovale) (03/01/20) Hyperlipidemia (08/10/14) History of transient ischemic attack (TIA) (01/03/22) Bilateral pulmonary embolism (07/03/23) Adjustment disorder with depressed mood (10/20/07) Pure hypercholesterolemia (07/25/22) Nonrheumatic aortic valve insufficiency (07/03/23) Moderate mitral regurgitation (11/13/19) Anxiety state (10/20/07) PFO (patent foramen ovale) History- s/p percutaneous closure November 2020 History of TIA (transient ischemic attack) Around 2019 per records (amaurosis fugax/transient left eye visual loss per records) Urinary retention self cath prn GERD (gastroesophageal reflux disease) Enlarged prostate History of anxiety Hx of renal calculi (~1969) UTI (urinary tract infection) (~08/2023) current ampicillin start 09/09/23 Nonischemic cardiomyopathy Idiopathicdiagnosed 2011no obstructive CAD with return to normal LV function Past Family History Family History Father , age 78 Coronary heart disease Past Surgical History Surgical History Hx of closure of congenital atrial septal defect by percutaneous transcatheter technique (~2019) Amplatzer Pfo Occluder, [facility] [place] History of loop recorder (~2018) checked monthly, follows with Dr. Titus at [facility], no issues Hx of tonsillectomy S/P appy Social History Smoking Status: Former smoker Smoking cigarettes per day: 4 Do You Dip or Chew Tobacco: No Smoking End Date: 50 years ago Hx Alcohol Use: Yes Alcohol type: wine alcohol intake frequency: holidays/special occasions only Hx Substance Use: No substance use type: does not use Physical Exam Vital Signs Last Vital Signs Temp 36.8 C 12/24/23 15:42 Pulse 66 12/24/23 15:42 Resp 12 12/24/23 15:42 BP 137/70 12/24/23 15:42 Pulse Ox 97 12/24/23 15:42 O2 Del Method Room Air 12/24/23 15:42 O2 Flow Rate 97 12/23/23 14:22 Testing Laboratory Results 12/24/23 07:39 12/24/23 07:39 PT 11.6 Seconds (9.0-12.0) 12/23/23 13:45 INR 1.1 (0.9-1.1) 12/23/23 13:45 APTT 30 Seconds (21-31) 12/23/23 13:45 Urine Color Dark Yellow 12/23/23 Unknown Urine Appearance Turbid (Clear) A 12/23/23 Unknown Urine pH 7.5 (4.5-7.5) 12/23/23 Unknown Ur Specific [place] 1.013 (1.000-1.030) 12/23/23 Unknown Urine Protein 2+ (Negative) H 12/23/23 Unknown Urine Glucose (UA) Negative (Negative) 12/23/23 Unknown Urine Ketones 1+ (Negative) H 12/23/23 Unknown Urine Nitrite Positive (Negative) A 12/23/23 Unknown Ur Leukocyte Esterase 3+ (Negative) H 12/23/23 Unknown Urine WBC (Auto) >50 /hpf (0-5) H 12/23/23 Unknown Urine RBC (Auto) >20 /hpf (0-2) H 12/23/23 Unknown U Hyaline Cast (Auto) 6-10 /lpf (0-2) H 12/23/23 Unknown U Epithel Cells (Auto) 0-2 /hpf (0-2) 12/23/23 Unknown Urine Bacteria (Auto) 3+ (None Seen) H 12/23/23 Unknown 12/23/23 13:40 Aerobic Blood Culture - Preliminary Blood No growth in Aerobic bottle after 24 hours. Anaerobic Blood Culture - Preliminary No growth in Anaerobic bottle after 24 hours. 12/23/23 13:45 Aerobic Blood Culture - Preliminary Blood No growth in Aerobic bottle after 24 hours. Anaerobic Blood Culture - Preliminary No growth in Anaerobic bottle after 24 hours. 12/23/23 Unknown Urine Culture - Preliminary Urine,Clean Catch Probable Pseudomonas species Escherichia coli
[2023-12-24] MEDS ORDERED: KETAMINE HCL 10MG/ML SYR ONE (16:45)
[2023-12-24] MEDS ORDERED: PHENYLEPHRINE 100MCG/ML 10ML SYR IV ONE (16:55)
[2023-12-24] MEDS: DIATRIZOATE MEGLUMINE 30% 100ML VIAL INSTIL ONE (17:26)
--- NOTE | 2023-12-24 17:30 | Operative Report ---
PG Post Operative Report Pre & Post Diagnosis Right ureteral calculus, urinary tract infection Operation Date: 12/24/23 07:00 <No data on this case meets the specified criteria> Same I identified the patient and participated in the time-out.: Yes Procedure Cystoscopy, right retrograde pyelogram with radiographic interpretation, right ureteral stent placement Operation Date: 12/24/23 07:00 <No data on this case meets the specified criteria> Surgeon James Castellanos MD Visual Coordinator None Estimated Blood Loss 5 Findings See Below Open prostatic fossa. Friable bladder neck. Significant trabeculations. Right ureteral orifice very hard to identify. Retrograde showed moderate hydronephrosis. Stent in appropriate position. Specimens None Drains 1. 6 [place] by 26 cm right ureteral stent 2. 16 [place] silicone catheter with 10 cc in balloon Anesthesia Type General Complications none Indications 78-year-old male with fevers, positive urine culture and a CT scan showing a right obstructing ureteral calculus. Description of Procedure After informed consent was obtained, the patient was transported operative suite. MAC anesthesia was induced. The patient was placed in dorsolithotomy position prepped and draped in a sterile fashion. They received preoperative vancomycin and Zosyn for antibiotic prophylaxis. An appropriate surgical timeout was performed. A 22 [place] rigid scope was inserted per urethra into the bladder. Castillo cystoscopy revealed no stones or lesions. The prostatic fossa was open. Bladder neck was very friable and bled making visualization difficult. Bladder had significant trabeculations. Right ureteral orifice was incredibly difficult to find and I had to use a 70 degree lens and a torque catheter to ultimately intubate this. Right retrograde pyelogram was shot which showed moderate hydronephrosis. Torque catheter was removed after sensor wire was confirmed in the upper pole of the kidney fluoroscopically. I deployed a 6 [place] by 26 cm right ureteral stent with good proximal coil in the kidney confirmed fluoroscopically and good distal coil in the bladder confirmed under direct visualization. Bladder was left full and scope was removed. 16 [place] silicone catheter was advanced with return of clear urine and balloon was inflated with 10 cc of sterile water. This concluded the end of the case. All counts were correct at the end of the case. I was present, scrubbed, and actively participated for the entirety of the procedure. I attest to the content of the Intraoperative Record and any orders documented therein. Any exceptions are noted below.
--- NOTE | 2023-12-24 17:45 | Fluoroscopy Report ---
FL retrograde includes kub CLINICAL HISTORY: RT SIDE STETNT PLACEMENT TECHNIQUE: 2 views were obtained with the C-arm in the OR with the above procedure. Total fluoroscopy time was 17.6 seconds. Radiation dose was 2.31 mGy. Comparison: Comparison is made to CT abdomen pelvis 12/24/2023 FINDINGS/IMPRESSION: Intraoperative images were obtained of right retrograde pyelogram and stent plac ement. In the final images, the stent is in satisfactory position. Please correlate with intraoperative fluoroscopy and operative report. ACT 112: Negative or not required by law. Electronically signed by: Marciano Madrigal M.D. 12/24/2023 5:44 PM
--- NOTE | 2023-12-24 18:03 | Anesthesiology Progress Note ---
Date of Service December 24, 2023 Anesthesia Post Procedure Vital Signs Vital Signs: Temp Pulse Pulse Resp BP BP Pulse Ox 12/24/23 15:42 36.8 C 66 12 137/70 97 12/24/23 15:16 69 12/24/23 14:37 36.6 C 59 L 18 118/70 94 12/24/23 12:02 36.6 C 63 18 122/64 94 12/24/23 08:57 12/24/23 07:38 36.6 C 61 18 134/73 95 12/24/23 07:00 65 12/24/23 04:08 37.0 C 66 18 113/55 L 96 12/23/23 23:41 36.7 C 79 18 102/58 L 96 12/23/23 22:02 70 12/23/23 19:28 79 12/23/23 19:28 36.8 C 79 16 117/62 95 12/23/23 19:10 O2 Del Method 12/24/23 15:42 Room Air 12/24/23 15:16 12/24/23 14:37 Room Air 12/24/23 12:02 Room Air 12/24/23 08:57 Room Air 12/24/23 07:38 Room Air 12/24/23 07:00 12/24/23 04:08 Room Air 12/23/23 23:41 Room Air 12/23/23 22:02 12/23/23 19:28 12/23/23 19:28 Room Air 12/23/23 19:10 Room Air Pain Intensity Abdomen: Pain Intensity: 3 Transfer of Care Handoff Completed per policy Notes Mental Status: alert / awake / arousable and participated in evaluation Patient Amnestic to Procedure: Yes Nausea / Vomiting: adequately controlled Pain: adequately controlled Airway Patency, RR, SpO2: stable & adequate BP & HR: stable & adequate Hydration State: stable & adequate Anesthetic Complications: no major complications apparent
[2023-12-24 19:47] LABS: Creatinine Clr Calc Pharmacy 46.2 ml/min; Est GFR (African American) 74.7 ml/min; Est GFR (Non-African American) 64.4 ml/min; Magnesium 2.1 mg/dl (1.7-2.4); Phosphorus 2.7 mg/dl (2.5-4.9); Potassium 3.9 mmol/L (3.5-5.1)
[2023-12-24] MEDS ORDERED: Nursing to Pharmacy Communication SCH (20:15)
[2023-12-25] MEDS: VANCOMYCIN LEVEL ONE (04:24)
[2023-12-25 04:39] LABS: Basophils # (auto) 0.04 K/uL (0.00-0.20); Basophils % (auto) 0.3 %; Eosinophils # (auto) 0.49 K/uL (0.00-0.50); Eosinophils % (auto) 4.1 %; Hematocrit (blood only) 31.8 % (42.0-52.0); Hemoglobin 10.3 g/dl (14.0-18.0); Immature Granulocytes # (auto) 0.03 K/uL (0.01-0.20); Immature Granulocytes % (auto) 0.3 %; Lymphocytes # (auto) 1.44 K/uL (1.20-3.40); Lymphocytes % (auto) 12.1 %; Mean Corpuscular Hemoglobin 30.9 pg (25.0-34.0); Mean Corpuscular Hgb Conc 32.4 g/dL (32.0-36.0); Mean Corpuscular Volume 95.5 fL (80.0-100.0); Mean Platelet Volume 9.3 fL (9.4-12.4); Monocytes # (auto) 1.05 K/uL (0.11-0.59); Monocytes % (auto) 8.8 %; Neutrophils # (auto) 8.86 K/uL (1.40-6.50); Neutrophils % (auto) 74.4 %; Platelet Count 300 K/uL (130-400); RDW Coefficient of Variation 13.8 % (11.5-14.5); RDW Standard Deviation 48.5 fL (36.4-46.3); Red Blood Count 3.33 M/uL (4.70-6.10); White Blood Count 11.91 K/ul (4.8-10.8)
[2023-12-25 04:57] LABS: BUN Creatinine Ratio 12.1 (10-20); Calcium 8.5 mg/dl (8.6-10.3); Creatinine Clr Calc Pharmacy 43.8 ml/min; Est GFR (Non-African American) 60.4 ml/min; Potassium 3.8 mmol/L (3.5-5.1)
--- NOTE | 2023-12-25 08:31 | Hospitalist Progress Note ---
Date of Service December 25, 2023 Assessment & Plan (1) Sepsis: (2) Acute UTI (urinary tract infection): (3) C. difficile colitis: (4) BPH with obstruction/lower urinary tract symptoms: (5) Bilateral pulmonary embolism: (6) GERD (gastroesophageal reflux disease): Plan This is a 78 y/o male with a medical history significant for bilateral PE in Jun 2023, nonischemic cardiomyopathy, nephrolithiasis, prior TIA, GERD, BPH w/ LUTS s/p TURP who presented to the ED from urgent care after he was found to be febrile with orthostasis. Pt has a complex urologic history with multiple courses of antibiotics in the last six months for infection. He has continued to require self-catheterization multiple times per day due to persistent urinary retention. Clinical presentation consistent with sepsis with likely source of infection a recurrent UTI. No evidence of end-organ dysfunction. Lactate was normal. Initial hypotension improved with fluid resuscitation. Pt reports his baseline BP is in the 110s systolic. Severe Sepsis Obstructive Nephrolithiasis Chronic Bladder Outlet Obstruction/BPH/LUTS Hypotensive, tachycardic with significant leukocytosis on admission UA suggestive of infection, urine Cx growing Pseudomonas and E coli Blood Cultures [address] abd/pelvis noting "[id number] right-sided hydroureteronephrosis secondary to an obstructing 8 mm calculus within the right ureter at the level of L4." Also noted "Prostamegaly with evidence of chronic bladder outlet obstruction." Treated initially with IV Zosyn and IV vancomycin. IV Vancomycin discontinued based on cultures ID consult pending Urology was consulted, appreciate recs -s/p cystoscopy and stent placement on 12/24/23 Continue Hidalgo catheter placed on admission Continue tamsulosin Improving C. difficile colitis Continue oral vancomycin -ID consulted as above, will need to discuss length of treatment since pt continues on antibiotics for UTI as well Isolation precautions Bilateral pulmonary embolism Jun 2023 - on chronic AC Continue apixaban BID GERD (gastroesophageal reflux disease) Chronic, stable Continue PPI therapy Mood Continue home meds Diet: Regular DVT Prophylaxis: on apixaban Dispo: PT/OT ordered Admission and Anticipated Discharge Date Admission Date: December 23, 2023 Subjective Seen sitting up in bed. Denied pain postop. Denied acute concerns. Review of Systems Review of Systems: All systems reviewed & are unremarkable except as noted in Subjective Physical Exam Physical Exam: General: Alert, oriented. No acute distress Psych: Appropriate mood and affect Neuro: No gross deficits HEENT: NC/AT CV: RRR Resp: Breath sounds clear bilaterally, no increased effort of breathing. Abdomen: Soft, nontender, nondistended. Extremities: No edema in lower extremities bilaterally. Results & Data Results & Data Vital Signs (Past 12 Hours) Vital Signs Temp Pulse Pulse Resp BP Pulse Ox O2 Del Method 12/25/23 07:44 36.5 C 59 L 18 107/69 94 Room Air 12/25/23 06:58 62 12/25/23 03:22 36.6 C 57 L 16 95/33 L 94 Room Air 12/24/23 22:57 36.6 C 64 18 112/53 L 95 Room Air 12/24/23 22:04 58 L 12/24/23 21:08 36.3 C L 71 18 140/62 97 Room Air Diagnostic Findings Chest X-Ray 12/23/23 13:21 XR chest 1V portable CLINICAL HISTORY: dizziness TECHNIQUE: Single frontal radiograph of the chest was obtained. Comparison: Comparison is made to chest radiograph 10/13/2007 FINDINGS: Loop recorder is seen. The cardiomediastinal silhouette is normal. The lungs are clear. No evidence of pleural effusion or pneumothorax. IMPRESSION: No acute chest disease. ACT 112: Negative or not required by law. Electronically signed by: Marciano Madrigal M.D. 12/23/2023 2:45 PM Abdomen/Pelvis CT 12/24/23 00:[address] WITHOUT CONTRAST CT DOSE: 499.7 mGy.cm HISTORY: Acute sepsis Sepsis. hx of outlet obstruction and stones TECHNIQUE: Multiaxial CT images of the abdomen and pelvis were performed without contrast. A dose lowering technique was utilized adhering to the principles of ALARA. COMPARISON STUDY: Renal ultrasound 06/20/2023, CT abdomen and pelvis 06/20/2023 FINDINGS: Cardiomegaly. The lung bases are generally clear. No free air. Unremarkable unenhanced spleen, pancreas, gallbladder, adrenal glands and liver. There are a few punctate nonobstructing left renal calculi. Nonobstructing calculi of the right kidney measure up to 5 mm. There is mild to moderate right- sided hydroureteronephrosis secondary to an obstructing 8 x 7 x 8 mm calculus of the proximal right ureter at the level of L4. There are a few subcentimeter hyperdense foci within the cortex of the right kidney likely representing complex cysts. Decompressed bladder with Hidalgo catheter in place. Circumferential urinary bladder wall thickening with intraluminal air. Prostatomegaly. Atherosclerosis of the aorta. No lymphadenopathy. Small hiatal hernia. There is no bowel obstruction. Moderate colonic fecal retention. No CT evidence of acute appendicitis. Small fat filled umbilical hernia. No acute fracture. IMPRESSION: 1. [id number] right-sided hydroureteronephrosis secondary to an obstructing 8 mm calculus within the right ureter at the level of L4. 2. Right greater than left nonobstructing bilateral nephrolithiasis. 3. Prostamegaly with evidence of chronic bladder outlet obstruction. 4. No bowel obstruction or bowel wall thickening. ACT 112: Negative or not required by law. The above report was generated using voice recognition software. It may contain grammatical, syntax or spelling errors. Electronically signed by: Gonzalez Preciado M.D. 12/24/2023 7:20 AM Retrograde Pyelogram 12/24/23 16:00 FL retrograde includes kub CLINICAL HISTORY: RT SIDE STETNT PLACEMENT TECHNIQUE: 2 views were obtained with the C-arm in the OR with the above procedure. Total fluoroscopy time was 17.6 seconds. Radiation dose was 2.31 mGy. Comparison: Comparison is made to CT abdomen pelvis 12/24/2023 FINDINGS/IMPRESSION: Intraoperative images were obtained of right retrograde pyelogram and stent placement. In the final images, the stent is in satisfactory position. Please correlate with intraoperative fluoroscopy and operative report. ACT 112: Negative or not required by law. Electronically signed by: Marciano Madrigal M.D. 12/24/2023 5:44 PM (1) Sepsis Sepsis acute organ dysfunction status: without acute organ dysfunction Sepsis type: sepsis due to unspecified organism Qualified Code(s): A41.9 - Sepsis, unspecified organism (6) GERD (gastroesophageal reflux disease) Esophagitis presence: without esophagitis Qualified Code(s): K21.9 - Gastro-esophageal reflux disease without esophagitis
--- NOTE | 2023-12-25 09:18 | Urology Progress Note ---
Date of Service December 25, 2023 Assessment & Plan (1) Ureteral stone: (2) Hydronephrosis: (3) Acute UTI (urinary tract infection): (4) Urinary retention: Plan - POD #1 s/p cystoscopy and right ureteral stent placement - Feeling well, tolerating the stent with minimal bother - Pt afebrile and hemodynamically stable - Labs today show leukocytosis improved to 11.91 today and normal renal function. - Urine culture final with Pseudomonas/E.coli - Blood cultures prelim no growth x 24 hours - Continues on IV Zosyn and Vanco for Cdiff. - Okay to d/c from perspective when medically stable - Recommend d/c with course of PO antibiotics per final culture sensitivities - Continue Tamsulosin - Maintain Hidalgo catheter while treating infection. We can arrange removal in our office. - Will arrange outpatient follow-up with our service - Urology will follow peripherally. Please call with any further questions/concerns. Admission and Anticipated Discharge Date Admission Date: December 23, 2023 Subjective Pt seen at bedside today. Awake, resting in bed on arrival. No acute distress. Feeling well overall. Tolerating the stent with minimal bother. Denies any significant pain. Denies f/c/n/v. Hidalgo draining clear yellow urine. Review of Systems Constitutional: as per Subjective / HPI Gastrointestinal: as per Subjective / HPI Genitourinary: + as per Subjective / HPI Physical Exam Constitutional: no acute distress Respiratory: no respiratory distress and no labored breathing Neurologic: moves all extremities and awake Psychiatric: A+Ox3, euthymic affect Genitourinary: Hidalgo draining clear yellow urine Results & Data Vital Signs (Past 12 Hours) Vital Signs Temp Pulse Pulse Resp BP Pulse Ox O2 Del Method 12/25/23 07:44 36.5 C 59 L 18 107/69 94 Room Air 12/25/23 06:58 62 12/25/23 03:22 36.6 C 57 L 16 95/33 L 94 Room Air 12/24/23 22:57 36.6 C 64 18 112/53 L 95 Room Air 12/24/23 22:04 58 L PG Care Time/CCT Total # of Minutes Spent Total Time Spent with Patient: Total time spent is greater than 50% in coordination of care (as documented) at patient's floor/unit and/or counseling patient: Coding Level of Care Code 36007 SUB INP/OBS CARE MIN Diagnoses Ureteral stone N20.1 Hydronephrosis N13.30 Acute UTI (urinary tract infection) N39.0 Urinary retention R33.9
[2023-12-26 07:57] VITALS: RESP 18
[2023-12-26 08:25] LABS: Basophils # (auto) 0.04 K/uL (0.00-0.20); Basophils % (auto) 0.4 %; Eosinophils # (auto) 0.89 K/uL (0.00-0.50); Eosinophils % (auto) 8.7 %; Hematocrit (blood only) 35.5 % (42.0-52.0); Hemoglobin 11.4 g/dl (14.0-18.0); Immature Granulocytes # (auto) 0.04 K/uL (0.01-0.20); Immature Granulocytes % (auto) 0.4 %; Lymphocytes # (auto) 1.75 K/uL (1.20-3.40); Mean Corpuscular Hgb Conc 32.1 g/dL (32.0-36.0); Mean Corpuscular Volume 96.5 fL (80.0-100.0); Mean Platelet Volume 9.2 fL (9.4-12.4); Monocytes # (auto) 0.89 K/uL (0.11-0.59); Monocytes % (auto) 8.7 %; Neutrophils # (auto) 6.66 K/uL (1.40-6.50); Neutrophils % (auto) 64.8 %; Platelet Count 349 K/uL (130-400); RDW Coefficient of Variation 13.8 % (11.5-14.5); RDW Standard Deviation 49.1 fL (36.4-46.3); Red Blood Count 3.68 M/uL (4.70-6.10); White Blood Count 10.27 K/ul (4.8-10.8)
[2023-12-26 08:37] LABS: Creatinine Clr Calc Pharmacy 50.5 ml/min; Est GFR (African American) 76.3 ml/min; Est GFR (Non-African American) 65.9 ml/min; Magnesium 2.1 mg/dl (1.7-2.4); Phosphorus 2.9 mg/dl (2.5-4.9); Potassium 3.9 mmol/L (3.5-5.1)
[2023-12-26 12:01] VITALS: PULSE 69
--- NOTE | 2023-12-26 14:59 | Discharge Summary ---
Discharge Summary Date of Service December 26, 2023 Principal Dx & Hospital Course #1 = Principal Diagnosis (1) Sepsis: (2) Acute UTI (urinary tract infection): (3) C. difficile colitis: (4) BPH with obstruction/lower urinary tract symptoms: (5) Bilateral pulmonary embolism: (6) GERD (gastroesophageal reflux disease): Plan This is a 78 y/o male with a medical history significant for bilateral PE in Jun 2023, nonischemic cardiomyopathy, nephrolithiasis, prior TIA, GERD, BPH w/ LUTS s/p TURP who presented to the ED from urgent care after he was found to be febrile with orthostasis. Pt has a complex urologic history with multiple courses of antibiotics in the last six months for infection. He has continued to require self-catheterization multiple times per day due to persistent urinary retention. Clinical presentation consistent with sepsis with likely source of infection a recurrent UTI. No evidence of end-organ dysfunction. Lactate was normal. Initial hypotension improved with fluid resuscitation. Pt reports his baseline BP is in the 110s systolic. Severe Sepsis Obstructive Nephrolithiasis Chronic Bladder Outlet Obstruction/BPH/LUTS Hypotensive, tachycardic with significant leukocytosis on admission UA suggestive of infection, urine Cx grew Pseudomonas and E coli Blood Cultures [address] abd/pelvis noting "Arrc-ks-ysnufcel right-sided hydroureteronephrosis secondary to an obstructing 8 mm calculus within the right ureter at the level of L4." Also noted "Prostamegaly with evidence of chronic bladder outlet obstruction." Treated initially with IV Zosyn and IV vancomycin. IV Vancomycin discontinued based on cultures Urology was consulted, appreciate recs -s/p cystoscopy and stent placement on 12/24/23 -Continue tamsulosin -Maintain Delatorre catheter while treating infection. Can arrange removal in our office. -Will arrange outpatient follow-up with Urology service Infectious Disease was consulted, appreciate recs -discharge with ciprofloxacin for 7 days if repeat EKG notes no qtc prolongation Close PCP and Urology followup after discharge C. difficile colitis Continue oral vancomycin -ID consulted as above, will need to discuss length of treatment since pt continues on antibiotics for UTI as well Isolation precautions Per ID continue with vancomycin 125mg QID x total of 10 days of treatment PCP followup Bilateral pulmonary embolism Jun 2023 - on chronic AC Continue apixaban BID GERD (gastroesophageal reflux disease) Chronic, stable Continue PPI therapy Mood Continue home meds Notes For Next Care Provider Please ensure followup with Urology Medication Changes From Visit Vancomycin 125mg QID to complete 10 days of treatment Ciprofloxacin 500mg BID x 7 days Admission HPI Per Admitting Provider This is a 78 y/o male with history of bilateral PE in Jun 2023, nonischemic cardiomyopathy, nephrolithiasis, prior TIA, GERD, BPH w/ LUTS s/p TURP, and other history as outlined below who presents to the ED today from urgent care after he was found to be febrile with orthostasis. Pt reports that he woke up around 4 am today with a headache, chills, malaise. [place] more weak and tired. Yesterday and today, he noticed that his urine was cloudy, thicker than usual. He presented to urgent care today but was referred to the ED for further eval uation. Pt has been self-catheterizing since June but notes that he has been able to pass some urine on his own recently, which is new for him. He passed a few small blood clots in his urine this morning. Denies penile irritation or bleeding. Pt notes that he developed diarrhea after antibiotics in November (about 10-14 days ago). Outpatient testing for C. diff was positive so started on oral vancomycin, which he reports he has taken for about the last five days. Had associated abdominal cramping and discomfort initially which is improving on the vancomycin. Currently the diarrhea is improving with two soft to semi-formed stools per day. Baseline BP in the 110s/50s. Recent urologic history is significant for: Cystoscopy 08/07/23 - significantly enlarged prostate w/ prominent intravesical protrusion, bladder heavily trabeculated with capacious bladder, no tumors or stones. TURP 09/26/23 - had some posterior mucosal splinting during the procedure, catheter left in place x 10 days. Post-op urinary retention so has continued CIC and 4x/day. Urine culture 11/11/23 - grew Klebsiella oxytoca, E. coli. Treated with A ugmentin. Repeat cystoscopy 11/27/23 - s/p TURP, bladder neck open w/ mild prostatic regrowth, trabeculated bladder, snowstorm appearance of the urine (aspirated). Urine culture 11/29/23 - grew E. coli. Treated with Bactrim. Saw urology on 12/19/23 for UDS testing but urine dip in office concerning for infection so procedure deferred. Admission Exam Per Admitting Provider GENERAL APPEARANCE: AxOx4, generally well-appearing male, frail no acute distress. HEENT: NC, AT. MMM. EOMI, clear conjunctiva, oropharynx clear. NECK: Supple without lymphadenopathy. No stiffness or restricted ROM. HEART: Normal rate and regular rhythm, normal S1/S1, no m/r/g LUNGS: CTAB, moving air well. No crackles or wheezes are heard. ABDOMEN: Soft, mild tenderness in BLQ nondistended with good bowel sounds heard. BACK: No CVAT, no obvious deformity. EXTREMITIES: Without cyanosis, clubbing or edema. NEUROLOGICAL: Grossly nonfocal. Alert and oriented, moving all 4 extremities. CN not formally tested but appear grossly intact Skin: Warm and dry without any rash. Discharge Exam General: Alert, oriented. No acute distress Psych: Appropriate mood and affect Neuro: No gross deficits HEENT: NC/AT CV: RRR Resp: Breath sounds clear bilaterally, no increased effort of breathing. Abdomen: Soft, nontender, nondistended. Extremities: No edema in lower extremities bilaterally. Updated Medication List Medication Instructions Recorded Confirmed Type escitalopram oxalate 10 mg tablet 5 mg PO QAM 06/20/23 12/23/23 History esomeprazole magnesium 20 mg 20 mg PO DAILY Heartburn 06/20/23 12/23/23 History capsule,delayed release (Nexium) magnesium oxide 400 mg PO QAM 06/20/23 12/23/23 History rosuvastatin 10 mg tablet 10 mg PO QAM 06/20/23 12/23/23 History sodium chloride 0.65 % nasal spray 2 spray intranasal DIRECTED PRN 06/20/23 12/23/23 History aerosol (Saline Nasal Mist) Nasal Congestion tamsulosin 0.4 mg capsule 0.4 mg PO QAM #30 caps 06/22/23 12/23/23 Rx apixaban 5 mg tablet (Eliquis) 5 mg PO AMHS 10/06/23 12/23/23 History multivitamin with minerals 1 tab PO DAILY 10/06/23 12/23/23 History (Multiple Vitamin-Minerals tablet) ciprofloxacin HCl 500 mg tablet 500 mg PO BID #14 tabs 12/26/23 Rx vancomycin 125 mg capsule 125 mg PO Q6H #28 caps 12/26/23 Rx Hospital Stay Data Consultations 12/23/23 14:54 ED Decision to Admit Stat 12/23/23 19:23 Consult Infectious Diseases Routine Consult Urology Routine Procedures Performed Operation Date: 12/24/23 07:00 Actual Procedures p Cystoscopy, Right Retrograde Pyelogram and Stent Placement(Right) - James Castellanos MD Diagnostic Imagining Performed 12/24/23 00:59 CT Abd and Pelvis [CT abd pelvis wo con] Routine 12/24/23 16:00 FL retrograde includes kub Routine Chest X-Ray 12/23/23 13:21 XR chest 1V portable CLINICAL HISTORY: dizziness TECHNIQUE: Single frontal radiograph of the chest was obtained. Comparison: Comparison is made to chest radiograph 10/13/2007 FINDINGS: Loop recorder is seen. The cardiomediastinal silhouette is normal. The lungs are clear. No evidence of pleural effusion or pneumothorax. IMPRESSION: No acute chest disease. ACT 112: Negative or not required by law. Electronically signed by: Marciano Madrigal M.D. 12/23/2023 2:45 PM Abdomen/Pelvis CT 12/24/23 00:[address] WITHOUT CONTRAST CT DOSE: 499.7 mGy.cm HISTORY: Acute sepsis Sepsis. hx of outlet obstruction and stones TECHNIQUE: Multiaxial CT images of the abdomen and pelvis were performed without contrast. A dose lowering technique was utilized adhering to the principles of ALARA. COMPARISON STUDY: Renal ultrasound 06/20/2023, CT abdomen and pelvis 06/20/2023 FINDINGS: Cardiomegaly. The lung bases are generally clear. No free air. Unremarkable unenhanced spleen, pancreas, gallbladder, adrenal glands and liver. There are a few punctate nonobstructing left renal calculi. Nonobstructing calculi of the right kidney measure up to 5 mm. There is mild to moderate right- sided hydroureteronephrosis secondary to an obstructing 8 x 7 x 8 mm calculus of the proximal right ureter at the level of L4. There are a few subcentimeter hyperdense foci within the cortex of the right kidney likely representing complex cysts. Decompressed bladder with Delatorre catheter in place. Circumferential urinary bladder wall thickening with intraluminal air. Prostatomegaly. Atherosclerosis of the aorta. No lymphadenopathy. Small hiatal hernia. There is no bowel obstruction. Moderate colonic fecal retention. No CT evidence of acute appendicitis. Small fat filled umbilical hernia. No acute fracture. IMPRESSION: 1. Bmae-kl-dhnkdpqb right-sided hydroureteronephrosis secondary to an obstructing 8 mm calculus within the right ureter at the level of L4. 2. Right greater than left nonobstructing bilateral nephrolithiasis. 3. Prostamegaly with evidence of chronic bladder outlet obstruction. 4. No bowel obstruction or bowel wall thickening. ACT 112: Negative or not required by law. The above report was generated using voice recognition software. It may contain grammatical, syntax or spelling errors. Electronically signed by: Gonzalez Preciado M.D. 12/24/2023 7:20 AM Retrograde Pyelogram 12/24/23 16:00 FL retrograde includes kub CLINICAL HISTORY: RT SIDE STETNT PLACEMENT TECHNIQUE: 2 views were obtained with the C-arm in the OR with the above procedure. Total fluoroscopy time was 17.6 seconds. Radiation dose was 2.31 mGy. Comparison: Comparison is made to CT abdomen pelvis 12/24/2023 FINDINGS/IMPRESSION: Intraoperative images were obtained of right retrograde pyelogram and stent placement. In the final images, the stent is in satisfactory position. Please correlate with intraoperative fluoroscopy and operative report. ACT 112: Negative or not required by law. Electronically signed by: Marciano Madrigal M.D. 12/24/2023 5:44 PM Pending Results Patient Have Any Pending Studies at Discharge: No Discharge Instructions Given to Patient (Per Discharging Provider) Mr Lucas, You are being discharged after a severe infection and placement of a stent by Urology. You were also seen by Infectious Disease. They recommend discharge with antibiotics Vancomycin sridevi complete 10 days of treatment and the antibiotic ciprofloxacin for 7 days for the urinary infection. Those are prescribed below. They also recommend continued use of the medication Flomax at home. Urology also recommends discharge home with the delatorre catheter and followup with their office for removal in the future. Please keep close followup with Urology after discharge. Please also keep close follow up with your primary care provider after discharge. Please do not hesitate to come back to the emergency room if your symptoms worsen or return. It was a pleasure taking care of you while you were here. Total Time Total Time Spent Total Time Spent (In Minutes): 75
[2023-12-26 15:28] VITALS: BP 110/65; TEMP 98.4; O2SAT 96
--- NOTE | 2023-12-26 15:43 | Infectious Disease Consult ---
Date of Service December 26, 2023 Telehealth Information I performed this visit using a real-time telehealth connection between my location and the patients location ([facility]). After connecting through interactive tele-video, patient was identified by name and date of and/or wristband check.Patient (or authorized healthcare front desk representative) was informed that this was a telemedicine visit and it was being conducted confidentially over secure lines. My office door was closed and no one else was present in the room with me.Patient (or authorized healthcare front desk representative) provided consent to proceed with the visit, expressed an understanding of privacy and security of the telemedicine visit, and gave permission to have a hospital front desk representative in the room in order to assist with the visit and to conduct portions of the visit, as needed. I informed the patient (or authorized healthcare front desk representative) that I reviewed their record and presented the opportunity for them to ask any questions regarding the visit today. The patient agreed to participate. Assessment & Plan (1) C. difficile colitis: Plan: Continue PO vancomycin 125mg QID for 10 days. If the patient requires antib iotics in the future (eg prior to a procedure - see below) I am not opposed to giving him a brief course of PO vancomycin 125mg q12h as "secondary prophylaxis" even though there is not evidence to support this. (2) Acute UTI (urinary tract infection): Plan: Once the patient is ready for discharge, check an EKQ to ensure that the QTc is acceptable. If the QTc is WNL and there are no drug-drug interactions, then transition to PO cipro. Discuss the dose with your pharmacist because I cannot see the patient's CrCl. The duration ABX will be 7 days (unless the Urology team feels that he has an uncontrolled source - in that case, contact me). I discussed the risks of cipro (including worsening of Cdiff) with the patient and he expressed understanding and wanted to proceed. Once the patient is discharged, he will need a repeat urine culture (and appropriate antibiotics) prior to undergoing his Urologic procedure. I will defer this to the patient's Urology team and PCP. History of Present Illness History of Present Illness The patient was admitted for fever (in the context of urinary retention with CIC and a recent first episode of Cdiff). Workup revealed a uretal stone with hydronephrosis. The patient was seen by Urology and they placed a stent (12/23). Urine culture is growing Ecoli and PsA. BCX are NGTD. The patient reports feeling much better. Stool are less frequent and more formed. The patient denies abdominal pain. Allergies Allergy/AdvReac Type Severity Reaction Status Date / Time latex Allergy Rash Verified 12/23/23 20:22 adhesive AdvReac Mild Rash Verified 12/23/23 12:30 atorvastatin [From Lipitor] AdvReac Mild Joints hurt Verified 12/23/23 12:30 Home Medications Medication Instructions Recorded Confirmed Type escitalopram oxalate 10 mg tablet 5 mg PO QAM 06/20/23 12/23/23 History esomeprazole magnesium 20 mg 20 mg PO DAILY Heartburn 06/20/23 12/23/23 History capsule,delayed release (Nexium) magnesium oxide 400 mg PO QAM 06/20/23 12/23/23 History rosuvastatin 10 mg tablet 10 mg PO QAM 06/20/23 12/23/23 History sodium chloride 0.65 % nasal spray 2 spray intranasal DIRECTED PRN 06/20/23 12/23/23 History aerosol (Saline Nasal Mist) Nasal Congestion tamsulosin 0.4 mg capsule 0.4 mg PO QAM #30 caps 06/22/23 12/23/23 Rx apixaban 5 mg tablet (Eliquis) 5 mg PO AMHS 10/06/23 12/23/23 History multivitamin with minerals 1 tab PO DAILY 10/06/23 12/23/23 History (Multiple Vitamin-Minerals tablet) Patient History Medical History (Updated 12/24/23 @ 13:33 by Marciano Ford DO) Sepsis GERD (gastroesophageal reflux disease) (09/29/14) Amaurosis fugax of left eye PFO (patent foramen ovale) (03/01/20) Hyperlipidemia (08/10/14) History of transient ischemic attack (TIA) (01/03/22) Bilateral pulmonary embolism (07/03/23) Adjustment disorder with depressed mood (10/20/07) Pure hypercholesterolemia (07/25/22) Nonrheumatic aortic valve insufficiency (07/03/23) Moderate mitral regurgitation (11/13/19) Anxiety state (10/20/07) PFO (patent foramen ovale) History- s/p percutaneous closure November 2020 History of TIA (transient ischemic attack) Around 2019 per records (amaurosis fugax/transient left eye visual loss per records) Urinary retention self cath prn GERD (gastroesophageal reflux disease) Enlarged prostate History of anxiety Hx of renal calculi (~1969) UTI (urinary tract infection) (~08/2023) current ampicillin start 09/09/23 Nonischemic cardiomyopathy Idiopathicdiagnosed 2012no obstructive CAD with return to normal LV function Surgical History Hx of closure of congenital atrial septal defect by percutaneous transcatheter technique (~2019) Amplatzer Pfo Occluder, [facility] [place] History of loop recorder (~2018) checked monthly, follows with Dr. Titus at [facility] no issues Hx of tonsillectomy S/P appy Family History Father , age 78 Coronary heart disease Social History Smoking Status: Former smoker Cigarettes Per Day: 4; Second Hand Exposure: No; Do You Dip or Chew Tobacco: No; Hx Alcohol Use: Yes Alcohol type: wine Hx Substance Use: No Preferred Language: Azeri Communication Ability: Effective Employee Health Nurse Required: No Beliefs That Will Affect Care: None marital status: Single Current Living Situation: Family Current Living Situation Comment: states sister and her live with him current occupational status: employed 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 Feels Safe at Home: Yes Physical Activity Frequency: 5-6 Times per Week Assistive Devices: None Review of Systems As reviewed in HPI; a complete ROS was otherwise negative Physical Exam Vitals: as above (or see EMR) Exam limited due to constraints of telemedicine Gen/Constitutional: appears at stated age, NAD, nontoxic Head: AT, NC Eyes: sclera anicteric, no conjunctival injection ENT: MMM, trachea midline Card: appears to be well-perfused Resp: not tachypneic, nml effort, symmetric chest rise, no accessory muscle use Derm: no visible diaphoresis, no visible rash, no visible jaundice Results & Data Vital Signs (Past 12 Hours) Vital Signs Temp Pulse Pulse Resp BP Pulse Ox O2 Del Method 12/26/23 15:27 36.9 C 69 18 110/65 96 Room Air 12/26/23 12:00 36.6 C 69 18 130/70 95 Room Air 12/26/23 07:56 36.5 C 63 18 137/69 98 Room Air 12/26/23 07:23 62 12/26/23 03:57 36.6 C 64 20 119/65 96 Room Air Laboratory Results SEE EMR Diagnostic Findings [address] [place] [address] / Director: Anatoliy Smith M.D. Clinical Laboratory Report Name: HOLLY LUO Acct: [id number] Status: ADM IN : 1945 [place] Date: 12/23/23 Age: 78 Sex: M Dis Date: Loc: [address] Rm/Bed: [facility] Spec: [id number] Collected: 12/23/23-1340 Received: 12/23/23-135 [facility] Dr: Eddie Boyer M.D. Source: Blood OV Order: Ordered: Blood Culture Comments: Comment Default is separate sites, same time Procedure Result Verified Site Blood Culture Aerobic Preliminary 12/25/23-1502 No growth in Aerobic bottle after 48 hours. Blood Culture Anaerobic Preliminary 12/25/23-1501 No growth in Anaerobic bottle after 48 hours. Name: HOLLY LUO : 1945 PAGE 1 Printed: 12/26/23 5917 END OF REPORT [address] [place] [address] / Director: Anatoliy Smith M.D. Clinical Laboratory Report Name: HOLLY LUO Acct: [id number] Status: ADM IN : 1945 [place] Date: 12/23/23 Age: 78 Sex: M Dis Date: Loc: [address]/Bed: N275 Spec: [id number] Collected: 12/23/23 Received: 12/23/[address]: Eddie Boyer M.D. Source: Blood OV Order: Ordered: Blood Culture Comments: Comment Default is separate sites, same time Procedure Result Verified Site Blood Culture Aerobic Preliminary 12/25/23 No growth in Aerobic bottle after 48 hours. Blood Culture Anaerobic Preliminary 12/25/23 No growth in Anaerobic bottle after 48 hours. Name: HOLLY LUO : 1945 PAGE 1 Printed: 12/26/23 1543 END OF REPORT [address] [place] [address] / Director: Anatoliy Smith M.D. Clinical Laboratory Report Name: HOLLY LUO Acct: [id number] Status: ADM IN : 1945 [place] Date: 12/23/23 Age: 78 Sex: M Dis Date: Loc: [address]/Bed: N275 Spec: [id number] Collected: 12/23/23-UNK Received: 12/23/23-[address]: Erica Segura CRNP Source: Urine,Clean Catch OV Order: Ordered: Urine Culture Procedure Result Verified Site Urine Culture Final 12/25/23-1104 Organism 1 Pseudomonas aeruginosa [place] Count 50,000 CFU/ml Sens Sensitivities to Follow Organism 2 Escherichia coli [place] Count 50,000 CFU/ml Sens Sensitivities to Follow P aerugino E coli RX M.I.C. RX M.I.C. --- --------- --- --------- Amox/Clav S <=8/4 Ampicillin S <=8 Amp/Sul S <=8/4 Cefazolin S <=2 Cefepime S 4 S <=2 Ceftazidime S 4 Ceftriaxone S <=1 Ciprofloxacin S <=0.25 S <=0.25 Ertapenem S <=0.5 Gentamicin S <=4 S <=4 Levofloxacin S <=0.5 S <=0.5 Meropenem S <=1 S <=1 Nitrofurantoin S <=32 Tobramycin S <=4 S <=4 Trimeth/Sulfa S <=2/38 Pip/Tazo S <=16 S <=16 S = SENSITIVE I = INTERMEDIATE R = RESISTANT Name: HOLLY LUO : 1945 PAGE 1 Printed: 12/26/23 [id number] END OF REPORT
--- NOTE | 2023-12-27 13:12 | Electrocardiogram Report ---
Test Reason : Blood Pressure : / mmHG Vent. Rate : 078 BPM Atrial Rate : 078 BPM P-R Int : 150 ms QRS Dur : 088 ms QT Int : 376 ms P-R-T Axes : 046 051 063 degrees QTc Int : 428 ms Normal sinus rhythm Normal ECG When compared with ECG of 23-DEC-2023 13:36, No significant change was found Confirmed by Jay Simon ([id number]) on 12/27/2023 1:12:00 PM Referred By: REFERRED SELF Confirmed By:Ralph Simon
== END 2023-12-26 18:10 | disposition home or self-care (01) | DRG 854 ==
LOC: ED 12:58 → SUATTDRO 15:34 → 2N 15:34